=== PATIENT | female | born 1955 | race Caucasian/White ===

== ENCOUNTER → 2016-11-10 09:21 | Outpatient (CLI) | payer MEDICARE | END | disposition home or self-care (01) | LOC: D.NM 09:15 | DX: E21.3 Hyperparathyroidism, unspecified (principal) ==

== ENCOUNTER → 2016-12-03 10:07 | Outpatient (CLI) | payer MEDICARE ==
[~2016-12-03 10:07] MED LIST: LEXAPRO10 MG PO; LIPITOR80 MG PO; NEPHRO-VITE RX1 TAB PO; NORVASC2.5 MG PO; RENVELA800 MG PO
[2017-01-27 07:47] VITALS: BMI 36.8
== END | disposition home or self-care (01) ==
LOC: D.US 10:00
DX: N18.6 End stage renal disease (principal)

== ENCOUNTER 2017-01-27 06:13 | Outpatient (CLI) | payer MEDICARE ==
[~2017-01-27] VITALS: Ht 157.5 cm; Wt 91.4 kg
--- NOTE | ~2017-01-27 | HEMODYNAMI ---
PATIENT:NAILA CORREIA MEDICAL RECORD: [id number] : 55 LOCATION:[facility] ADMISSION DATE: 01/27/17 Generatedon:01/27/201714:49 Patient name: NAILA CORREIA Patient #: [id number] SSN: : Date of study: 01/27/2017 Page: Of Hemodynamic Procedure Report Patient Data Patient Demographics Procedure consent was obtained First Name: NAILA Gender: Female Last Name: BREN : 1955 [facility] Initial: C Age: 61 year(s) Patient #: [id number] Race: Unknown Additional ID: [id number] Contact details Address: [address] [place] [address] [employer] [facility] [employer] State: [place] City: [place] Zip code: [address] Past Medical History Allergies: No known allergies Admission Admission Data Admission Date: 01/27/2017 Admission Time: 6:13 Procedure Procedure Types Cath Procedure Peripheral Cath Diagnostic Procedure Miscellaneous Procedure Description Procedure Date Procedure Date: 01/27/2017 Procedure Start Time: 14:18 Procedure Staff Name Function Guillermo Dixon RT Scrub Partha Catherine MD Performing Physician Debbi Feliciano RN Nurse Sherry Villarreal RT Monitor Sherry Villarreal RT Mail Agent Procedure Data Cath Procedure Fluoroscopy Diagnostic fluoroscopy Total fluoroscopy Time: 0.6 time: 0.6 min min Diagnostic fluoroscopy Total fluoroscopy dose: 27 dose: 27 mGy mGy Contrast Material Contrast Material Type Amount (ml) Isovue 300 35 Procedure Medications Medication Administration Route Dosage Oxygen NC 3 l/min Lidocaine 1% added to field 20 Heparin Flush Bag added to field 2 bags (1000units/500ml NS) Versed 1 mg Fentanyl I.V. 50 mcg Ancef (1Gm/50ml NS) I.V.P.B 1 g Versed I.V. 1 mg Fentanyl I.V. 50 mcg Hemodynamics Rest Heart Rate: 95 (bpm) Snapshots Pre Cath Intra NCS Post Cath Vital Signs Time Heart Resp SPO2 etCO2 NIBP (mmHg) Rhythm Pain Sedation Rate (ipm) (%) (mmHg) Status Level (bpm) 13:58:37 96 22 99 33 192/87(129) NSR 0 (11) 10(A) , No pain 14:03:24 92 18 100 34.5 164/83(130) NSR 0 (11) 10(A) , No pain 14:08:03 97 17 99 33 174/92(142) NSR 0 (11) 10(A) , No pain 14:12:45 95 14 99 33 181/92(134) NSR 0 (11) 10(A) , No pain 14:17:26 96 19 100 37.5 183/97(137) NSR 0 (11) 10(A) , No pain 14:22:05 95 16 99 35.3 171/92(131) NSR 0 (11) 10(A) , No pain 14:26:39 99 17 98 35.3 164/91(121) NSR 0 (11) 10(A) , No pain 14:31:17 97 8 98 27 164/85(125) NSR 0 (11) 10(A) , No pain 14:35:54 94 17 98 36 172/91(133) NSR 0 (11) 10(A) , No pain 14:40:35 95 21 99 34.5 180/91(128) NSR 0 (11) 10(A) , No pain 14:45:17 94 15 100 34.5 159/96(145) NSR 0 (11) 10(A) , No pain 14:48:52 94 18 100 28.5 180/97(127) NSR 0 (11) 10(A) , No pain Medications Time Medication Route Dose Verified Delivered Reason Notes Eff ectiveness by by 14:20:04 Oxygen NC 3 Debbi Debbi used for l/min Braden Braden cellar pumper RN 14:20:19 Lidocaine 1% added 20ml Debbi Chavis for local to vial Braden Catherine anesthetic field MÓNICA CHAVEZ 14:20:38 Heparin Flush added 2 Debbi Partha used for Bag to bags Braden Catherine procedure (1000units/500ml field MÓNICA CHAVEZ NS) 14:23:21 Versed 1 mg Partha Werner for Catherine Braden RN sedation 14:23:33 Fentanyl I.V. 50 Partha Werner for mcg Dorene Feliciano RN sedation 14:23:55 Ancef (1Gm/50ml I.V.P.B 1 g Partha Werner Per NS) Dorene Feliciano RN protocol 14:28:36 Versed I.V. 1 mg Partha Werner for Dorene Feliciano RN sedation 14:28:43 Fentanyl I.V. 50 Partha Debbi for mcg Dorene Feliciano RN sedation Procedure Log Time Note 11:34:22 Full Disclosure recording stopped 13:47:29 Time tracking: Regular hours 13:56:46 Plan of Care:Hemodynamics will remain stable., Cardiac rhythm will remain stable., Comfort level will be maintained., Respiratory function will remain adequate., Patient/ family verbilizes understanding of procedure., Procedure tolerated without complication., Recovers from procedure without complications.. 13:56:53 Patient received from Outpatients to IR Alert and oriented. Tansferred to table in Supine position. 13:56:56 Correct patient and procedure confirmed by team. 13:56:59 Signed procedure consent form obtained from patient. 13:57:00 ECG and BP/O2 sat monitors applied to patient. 13:57:01 Vital chart was started 13:57:02 Baseline sample Acquired. 13:57:03 Full Disclosure recording started 13:57:04 - 13:57:09 H&P Date Dictated: 01/27/2017 Within 30 days and on chart.. 13:57:12 Pre-procedure instructions explained to patient. 13:57:13 Pre-op teaching completed and patient verbalized understanding. 13:57:15 Family in waiting room. 13:57:18 Patient NPO since Midnight. 13:57:36 Patient allergic to No known allergies 13:57:42 ----Pre-sedation anethsthesia assessment.---- 13:57:49 Previous problem with sedation/anesthesia? No ? 13:57:52 Snore? No 13:57:55 Sleep apnea? No 13:57:57 Deviated septum? No 13:57:59 Opens mouth fully? Yes 13:58:01 Sticks out tongue? Yes 13:58:04 Airway obstruction? No ? 13:58:08 Dentures? No ? 13:58:10 - 13:58:18 IV patent on arrival in right wrist with 0.9% NaCl at [facility]. 13:58:27 Use device set IR Diagnostic 13:58:29 Sterile Angiographic Pack opened to sterile field. 13:58:30 Bag Decanter (2002S) opened to sterile field. 14:15:32 Is patient on blood thinner?No 14:15:34 Patient diabetic? No. 14:17:52 Left Arm area was prepped with chlora-prep and draped in sterile fashio n 14:17:56 Physician arrived 14:18:07 --------ALL STOP TIME OUT------ 14:18:08 Final Timeout: patient, procedure, and site verified with staff and physician. All members of the team are in agreement. 14:18:18 Sedation plan: IV Moderate Sedation Medication:Versed, Fentanyl 14:18:39 Procedure started. 14:18:49 Local anesthetic to left arm with Lidocaine 1% by Partha Catherine MD.INITIAL ACCESS ONLY 14:19:46 Venous access obtained using ultrasound guidance. 14:20:04 Oxygen 3 l/min NC was administered by Debbi Feliciano RN; used for procedure; 14:20:19 Lidocaine 1% 20ml vial added to field was administered by Partha Catherine MD; for local anesthetic; 14:20:38 Heparin Flush Bag (1000units/500ml NS) 2 bags added to field was administered by Partha Catherine MD; used for procedure; 14:20:46 Cook DOC .035 guide wire opened to sterile field. 14:20:59 DILATOR, VESSEL 4/20 opened to sterile field. 14:21:01 PERCUTANEOUS ENTRY 19GA needle opened to sterile field. 14:23:21 Versed 1 mg was administered by Debbi Braden RN; for sedation; 14:23:33 Fentanyl 50 mcg I.V. was administered by Debbi Feliciano RN; for sedation ; 14:23:55 Ancef (1Gm/50ml NS) 1 g I.V.P.B was administered by Debbi Feliciano RN; Per protocol; 14:28:36 Versed 1 mg I.V. was administered by Debbi Feliciano RN; for sedation; 14:28:43 Fentanyl 50 mcg I.V. was administered by Debbi Feliciano RN; for sedation ; 14:41:37 Procedure ended.(Physican Out) 14:41:51 Fluoroscopy time 00.60 minutes. 14:41:56 Fluoroscopy dose: 27 mGy 14:41:56 Flurop Dose total: 27 14:42:02 Contrast amount:Isovue 300 35ml. 14:45:39 Procedure and supply charges have been captured, reviewed, submitted an d are correct. 14:49:26 Vital chart was stopped Device Usage Item Name Manufacture Quantity Catalog Hospital Part Current Minimal Lot# / Number Charge Number Stock Stock Serial# Code Sterile Cardinal 1 [id number] Angiographic Health Pack Bag Decanter Microtek 1 [id number] () [employer] Cook DOC [employer] 1 [id number] .035 guide wire DILATOR, [employer] 1 [id number] 04563 [id number] 5 [id number] VESSEL 06/18 PERCUTANEOUS [employer] 1 [id number] 5 [id number] ENTRY 19GA needle Signature Audit Prior [place] Time Signature Unsigned Intra-Procedure 01/27/2017 Sherry Villarreal 2:49:24 PM RT(R) Signatures Monitor : Sherry Villarreal RT Signature : Date : Time : [address] [address]
[2017-01-27] MEDS ORDERED: LIPITOR80 MG PO (07:26)
[2017-01-27] MEDS ORDERED: NEPHRO-VITE RX1 TAB PO (07:27)
[2017-01-27] MEDS ORDERED: LEXAPRO10 MG PO (07:27)
[2017-01-27] MEDS ORDERED: NORVASC2.5 MG PO (07:28)
[2017-01-27] MEDS ORDERED: RENVELA800 MG PO (07:28)
[2017-01-27 07:47] VITALS: Ht 157.5 cm; Wt 91.4 kg
[2017-01-27 07:57] LABS: BASOPHILS 0.2 % (0-2); EOSINOPHILS 5.2 % (0-7); HEMATOCRIT 31.8 % (36.0-48.0); HEMOGLOBIN 9.9 g/dL (12-16); LYMPHOCYTES 20.1 % (15-50); MCH 30.4 pg (26.0-34.0); MCHC 31.1 g/dL (31.0-37.0); MCV 97.5 fL (80.0-100.0); MEAN PLATELET VOLUME 10.4 fL (7.4-10.4); MONOCYTES 10.1 % (2-11); NEUTROPHILS 64.4 % (40-80); PLATELET COUNT 223 10x3/uL (130-400); RBC 3.26 10x6/uL (4.00-5.40); RDW 14.3 % (11.5-14.5); WBC 5.4 10x3/uL (4.8-10.8)
[2017-01-27 08:00] LABS: ANION GAP 16.7 mmol/L (8-16); CALCIUM 8.9 mg/dL (8.5-10.1); CARBON DIOXIDE 23.3 mmol/L (21.0-32.0); CREATININE - SERUM 9.3 mg/dL (0.6-1.3)
[2017-01-27 08:02] LABS: INR 1.07 (0.85-1.17); PROTIME 13.5 SECONDS (11.6-15.0)
[2017-01-27 08:03] LABS: APTT 37.7 SECONDS (22.8-39.4)
--- NOTE | 2017-01-27 18:41 | NUR ---
1500--ALL VITAL SIGNS CHARTED ON POST PROCEDURE VITAL SIGN SHEET ON CHART. DENICE SALES
--- NOTE | 2017-01-27 18:47 | NUR ---
1830--PT VOIDS ON BEDPAN. HGRAVES RN
== END 2017-01-27 20:45 | disposition home or self-care (01) ==
LOC: D.OPS 06:13 → D.SP 09:00 → D.OPS 20:45
PROVIDERS: Specialist
DX: T82.868A Thrombosis due to vascular prosthetic devices, implants and grafts, initial encounter (principal); Z01.812 Encounter for preprocedural laboratory examination

== ENCOUNTER → 2017-04-12 09:43 | Outpatient (CLI) | payer MEDICARE ==
[2017-01-27 07:47] VITALS: BMI 36.8
== END | disposition home or self-care (01) ==
LOC: D.US 09:43
DX: E21.5 Disorder of parathyroid gland, unspecified (principal)

== ENCOUNTER → 2017-08-04 09:08 | Outpatient (CLI) | payer MEDICARE ==
[2017-01-27 07:47] VITALS: BMI 36.8
== END | disposition home or self-care (01) ==
LOC: D.NM 09:08
DX: E21.3 Hyperparathyroidism, unspecified (principal)

== ENCOUNTER → 2017-10-18 12:57 | Outpatient (CLI) | payer MEDICARE ==
[2017-01-27 07:47] VITALS: BMI 36.8
[~2017-10-18 12:57] MED LIST changes: +BENADRYL25 MG PO; +HYDROCODON-ACE1 EAC7 PO; +HYDROXYZINE HCL50 MG PO; +MEDROL DOSE PACK4 MG PO; +PERCOCET 5-3251 TAB PO; +PREDNISONE20 MG PO; +TUMS X-STR300 MG PO
== END | disposition home or self-care (01) ==
LOC: D.LAB 08:00
DX: Z51.81 Encounter for therapeutic drug level monitoring (principal); Z79.2 Long term (current) use of antibiotics; K65.9 Peritonitis, unspecified

== ENCOUNTER 2017-11-10 23:01 | Emergency (ER) | payer MEDICARE ==
[~2017-11-10] VITALS: Ht 157.5 cm; Wt 89.1 kg
[~2017-11-10 23:01] MED LIST changes: -BENADRYL25 MG PO; -HYDROCODON-ACE1 EAC7 PO; -HYDROXYZINE HCL50 MG PO; -MEDROL DOSE PACK4 MG PO; -PERCOCET 5-3251 TAB PO; -PREDNISONE20 MG PO; -TUMS X-STR300 MG PO
[2017-11-10 23:11] VITALS: Ht 157.5 cm; Wt 89.1 kg
[2017-11-11] MEDS ORDERED: HYDROCODON-ACE1 EAC7 PO (00:13)
[2017-11-11 00:40] VITALS: BP 145/82
[2017-11-11] MEDS ORDERED: TUMS X-STR300 MG PO (13:23)
== END 2017-11-11 00:40 | disposition home or self-care (01) ==
LOC: D.ER 23:01
DX: R10.9 Unspecified abdominal pain (principal); Z86.73 Personal history of transient ischemic attack (TIA), and cerebral infarction without residual deficits; I12.9 Hypertensive chronic kidney disease with stage 1 through stage 4 chronic kidney disease, or unspecified chronic kidney disease; N18.9 Chronic kidney disease, unspecified; Z99.2 Dependence on renal dialysis

== ENCOUNTER 2017-11-11 12:35 | Inpatient (IN) | payer MEDICARE ==
[~2017-11-11] VITALS: Ht 157.5 cm; Wt 89.7 kg
--- NOTE | ~2017-11-11 | OP ---
PATIENT NAME: PAULINO CORREIA MEDICAL RECORD: [id number] :55 LOCATION:D.M2 D.2130 ADMISSION DATE:11/11/17 SURGEON: STEPHANE SUNG MD DATE OF OPERATION: 11/14/2017 PREOPERATIVE DIAGNOSES: 1. Peritonitis secondary to peritoneal dialysis catheter. 2. End-stage renal disease, in need of dialysis. 3. Desires hemodialysis and desires to discontinue peritoneal dialysis. POSTOPERATIVE DIAGNOSES: 1. Peritonitis secondary to peritoneal dialysis catheter. 2. End-stage renal disease, in need of dialysis. 3. Desires hemodialysis and desires to discontinue peritoneal dialysis. PROCEDURES: 1. HemoSplit catheter placement of the right internal jugular site. This is a tunneled cuffed dual-lumen hemodialysis catheter, under fluoroscopic guidance. 2. Immediate surgeon interpretation of the fluoroscopic images. 3. Removal of tunneled cuffed peritoneal dialysis catheter. SURGEON: Stephane Sung MD CHILD CARE AIDE: None. BLOOD LOSS: Minimal. ANESTHESIA: General. COMPLICATIONS: None. The risks, possible complications, and alternatives to procedure were explained to the patient. She elects to proceed. The discussion specifically included, but was not limited to, bleeding requiring an emergency reoperation, infection, great vessel injury, and pneumothorax. No radiologist was present for this procedure. Static fluoroscopic images were obtained and are kept in the PACS system. The surgeon interpretation of the radiographic images is dictated within the body of this operative note. OPERATIVE COURSE: The patient was conveyed to the operating room electively on 11/14/2017. General anesthesia was induced by the anesthesia staff. The neck, chest, and abdomen were sterilely prepped and draped. Under ultrasonographic guidance, I percutaneously accessed the right internal jugular vein in an antegrade fashion. A guidewire was passed easily. This was visualized under fluoroscopy. A small skin candice was accomplished around the wire. A counterincision was accomplished in the right anterior superior infraclavicular chest. I tunneled a 19 cm HemoSplit catheter from the chest incision to the neck incision. I dilated the wire to a larger size. The dilator sheath was advanced over the wire. I removed the dilator and the wire. The lumens of the HemoSplit catheter were then placed down through the sheath. Sheath was then peeled away. I then pulled back on the HemoSplit catheter in order to seat the cuff into the subcutaneous tissues. Image over the mediastinum revealed that the longest tip of the HemoSplit catheter was likely OPERATIVE REPORT [id number] PAULINO CORREIA in the region of the right innominate vein or the superior vena cava. There was no radiographic evidence of complication. No evidence of kinking or twisting of the HemoSplit catheter. No pneumothorax. The neck incision was closed with a single intracuticular 3-0 Vicryl suture. The hub of the HemoSplit catheter was sutured to the underlying skin with 2-0 nylons. Both lumens flushed easily and aspirated dark, nonpulsatile blood. I then topped off both lumens of the HemoSplit catheter with the appropriate amount of concentrated heparin. Attention was then turned to removal of the peritoneal dialysis catheter. A circular incision was accomplished around the peritoneal dialysis catheter exit site. I then bluntly dissected down to the secondary cuff, which was at the level of the abdominal wall fascia. I incised the abdominal wall fascia around the cuff. I was then able to remove the peritoneal dialysis catheter and it appeared that both cuffs were removed in their entireties. The peritoneal dialysis catheter was likely placed in an angle as I could not identify any drainage of peritoneal fluid into the wound. Therefore, I did not think that a suture was necessary for the peritoneal dialysis catheter entry site. The subdermis was approximated with interrupted 3-0 Vicryls. The skin was approximated with interrupted horizontal mattress 3-0 Vicryl Rapide sutures. Sterile dressings were applied. The patient was then extubated and conveyed to the post-anesthesia care unit where she was in stable condition. TRANSINT:[id number] Voice Confirmation ID: [id number] DOCUMENT ID: [id number] STEPHANE SUNG MD CC: DARCY LAWSON MD [id number] DICTATION DATE: 11/14/17 2248 RADIO STATION OPERATOR: 11/15/17 0013 ADM IN [facility] [address] [id number]
[~2017-11-11 12:35] MED LIST changes: +HYDROCODON-ACE1 EAC7 PO
[2017-11-11] MEDS ORDERED: TUMS X-STR300 MG PO (13:23)
[2017-11-11 13:49] VITALS: BP 108/53
[2017-11-11 14:54] LABS: BASOPHILS 0.2 % (0-2); EOSINOPHILS 11.9 % (0-7); HEMOGLOBIN 9.4 g/dL (12-16); IMMATURE GRANULOCYTES 0.2 % (0-5); LYMPHOCYTES 11.7 % (15-50); MCH 30.2 pg (26.0-34.0); MCHC 33.6 g/dL (31.0-37.0); MEAN PLATELET VOLUME 10.2 fL (7.4-10.4); MONOCYTES 11.9 % (2-11); NEUTROPHILS 64.1 % (40-80); RBC 3.11 10x6/uL (4.00-5.40); RDW 14.3 % (11.5-14.5)
[2017-11-11 15:02] LABS: PLATELET COUNT 149 10x3/uL (130-400)
[2017-11-11 15:09] LABS: CARBON DIOXIDE 22.8 mmol/L (21.0-32.0); CREATININE - SERUM 13.1 mg/dL (0.6-1.3)
[2017-11-11 15:13] LABS: ANION GAP 18.1 mmol/L (8-16); CALCIUM 5.9 mg/dL (8.5-10.1); POTASSIUM - SERUM 2.9 mmol/L (3.5-5.1)
[2017-11-11 17:00] VITALS: BP 128/64
[2017-11-11 20:00] VITALS: BP 101/52
[2017-11-12] VITALS: BP 132/64
[2017-11-12 02:55] LABS: EOS BF 5 %; MACROPHAGES BF 8 %; MESOTHELIALS BF 2 %
[2017-11-12 02:56] LABS: NEUT - BF 48 %
[2017-11-12 04:00] VITALS: BP 128/68
[2017-11-12 06:17] LABS: BASOPHILS 0.3 % (0-2); EOSINOPHILS 14.1 % (0-7); HEMATOCRIT 27.9 % (36.0-48.0); HEMOGLOBIN 9.4 g/dL (12-16); IMMATURE GRANULOCYTES 0.6 % (0-5); LYMPHOCYTES 12.4 % (15-50); MCH 30.6 pg (26.0-34.0); MCHC 33.7 g/dL (31.0-37.0); MCV 90.9 fL (80.0-100.0); MEAN PLATELET VOLUME 10.4 fL (7.4-10.4); NEUTROPHILS 64.6 % (40-80); PLATELET COUNT 152 10x3/uL (130-400); RBC 3.07 10x6/uL (4.00-5.40); RDW 14.3 % (11.5-14.5); WBC 3.6 10x3/uL (4.8-10.8)
[2017-11-12 06:30] LABS: ANION GAP 18.7 mmol/L (8-16); CARBON DIOXIDE 21.3 mmol/L (21.0-32.0); CREATININE - SERUM 12.1 mg/dL (0.6-1.3)
[2017-11-12 07:16] LABS: CALCIUM 6.2 mg/dL (8.5-10.1)
[2017-11-12 07:40] VITALS: BP 93/46
[2017-11-12 12:36] VITALS: BP 121/62
[2017-11-12 13:16] VITALS: Ht 157.5 cm; Wt 89.7 kg
[2017-11-12 16:02] VITALS: BP 100/50
[2017-11-12 20:00] VITALS: BP 88/48
[2017-11-13 04:00] VITALS: BP 108/53
[2017-11-13 06:54] LABS: BASOPHILS 0.3 % (0-2); EOSINOPHILS 12.1 % (0-7); HEMATOCRIT 28.8 % (36.0-48.0); HEMOGLOBIN 9.4 g/dL (12-16); IMMATURE GRANULOCYTES 0.5 % (0-5); LYMPHOCYTES 10.1 % (15-50); MCH 30.1 pg (26.0-34.0); MCHC 32.6 g/dL (31.0-37.0); MCV 92.3 fL (80.0-100.0); MEAN PLATELET VOLUME 10.7 fL (7.4-10.4); MONOCYTES 7.2 % (2-11); NEUTROPHILS 69.8 % (40-80); PLATELET COUNT 157 10x3/uL (130-400); RBC 3.12 10x6/uL (4.00-5.40); RDW 14.4 % (11.5-14.5); WBC 3.9 10x3/uL (4.8-10.8)
[2017-11-13 07:08] LABS: ALBUMIN 2.3 g/dL (3.4-5.0); ANION GAP 20.9 mmol/L (8-16); BILIRUBIN - DIRECT 0.07 mg/dL (0.00-0.30); BILIRUBIN - INDIRECT 0.32 mg/dL (0.00-1.00); BILIRUBIN - TOTAL 0.39 mg/dL (0.2-1.3); CALCIUM 7.2 mg/dL (8.5-10.1); CARBON DIOXIDE 20.3 mmol/L (21.0-32.0); CREATININE - SERUM 10.4 mg/dL (0.6-1.3); POTASSIUM - SERUM 3.2 mmol/L (3.5-5.1); PROTEIN - SERUM 5.9 g/dL (6.4-8.2); VANCOMYCIN - RANDOM 38.4 ug/mL (10.0-20.0)
[2017-11-13 09:28] VITALS: BP 94/54
[2017-11-13 12:58] VITALS: BP 103/53
[2017-11-13 20:00] VITALS: BP 112/44
[2017-11-14] VITALS (7 sets, daily range): BP systolic 106–156; BP diastolic 43–76
[2017-11-14 06:46] LABS: BASOPHILS 0.2 % (0-2); EOSINOPHILS 13.1 % (0-7); HEMATOCRIT 27.2 % (36.0-48.0); HEMOGLOBIN 8.6 g/dL (12-16); IMMATURE GRANULOCYTES 0.2 % (0-5); LYMPHOCYTES 13.9 % (15-50); MCHC 31.6 g/dL (31.0-37.0); MEAN PLATELET VOLUME 10.3 fL (7.4-10.4); MONOCYTES 8.2 % (2-11); NEUTROPHILS 64.4 % (40-80); PLATELET COUNT 134 10x3/uL (130-400); RBC 2.87 10x6/uL (4.00-5.40); RDW 14.6 % (11.5-14.5)
[2017-11-14 06:49] LABS: MCV 94.8 fL (80.0-100.0)
[2017-11-14 07:13] LABS: ANION GAP 18.1 mmol/L (8-16); CARBON DIOXIDE 20.1 mmol/L (21.0-32.0); CREATININE - SERUM 10.9 mg/dL (0.6-1.3); PHOSPHOROUS 4.1 mg/dL (2.5-4.9); VANCOMYCIN - RANDOM 30.7 ug/mL (10.0-20.0)
[2017-11-14 07:18] LABS: INR 1.11 (0.85-1.17); POTASSIUM - SERUM 4.2 mmol/L (3.5-5.1); PROTIME 13.9 SECONDS (11.6-15.0)
[2017-11-15] VITALS (7 sets, daily range): BP systolic 122–175; BP diastolic 53–73
[2017-11-15 07:43] LABS: BASOPHILS 0.1 % (0-2); EOSINOPHILS 0 % (0-7); HEMATOCRIT 29.5 % (36.0-48.0); HEMOGLOBIN 9.3 g/dL (12-16); IMMATURE GRANULOCYTES 0.6 % (0-5); LYMPHOCYTES 7.4 % (15-50); MCH 29.8 pg (26.0-34.0); MCHC 31.5 g/dL (31.0-37.0); MCV 94.6 fL (80.0-100.0); MEAN PLATELET VOLUME 10.5 fL (7.4-10.4); MONOCYTES 1.9 % (2-11); PLATELET COUNT 146 10x3/uL (130-400); RBC 3.12 10x6/uL (4.00-5.40); RDW 14.4 % (11.5-14.5)
[2017-11-15 07:46] LABS: WBC 7.3 10x3/uL (4.8-10.8)
[2017-11-15 08:01] LABS: ANION GAP 19.6 mmol/L (8-16); CALCIUM 7.3 mg/dL (8.5-10.1); CARBON DIOXIDE 19.8 mmol/L (21.0-32.0); CREATININE - SERUM 11.1 mg/dL (0.6-1.3); POTASSIUM - SERUM 4.4 mmol/L (3.5-5.1); VANCOMYCIN - RANDOM 25.8 ug/mL (10.0-20.0)
[2017-11-15 08:02] LABS: PHOSPHOROUS 5.3 mg/dL (2.5-4.9)
[2017-11-16] VITALS: BP 102/51
[2017-11-16 04:00] VITALS: BP 99/42
[2017-11-16 06:55] LABS: BASOPHILS 0.3 % (0-2); EOSINOPHILS 7.2 % (0-7); HEMATOCRIT 28.2 % (36.0-48.0); IMMATURE GRANULOCYTES 0.7 % (0-5); LYMPHOCYTES 7.7 % (15-50); MCH 30.3 pg (26.0-34.0); MCHC 31.9 g/dL (31.0-37.0); MCV 94.9 fL (80.0-100.0); MEAN PLATELET VOLUME 10.3 fL (7.4-10.4); MONOCYTES 4.5 % (2-11); NEUTROPHILS 79.6 % (40-80); PLATELET COUNT 142 10x3/uL (130-400); RBC 2.97 10x6/uL (4.00-5.40); RDW 14.6 % (11.5-14.5)
[2017-11-16 07:08] LABS: CALCIUM 7.7 mg/dL (8.5-10.1); VANCOMYCIN - RANDOM 22.7 ug/mL (10.0-20.0)
[2017-11-16 07:09] LABS: ANION GAP 14.5 mmol/L (8-16); CARBON DIOXIDE 26.9 mmol/L (21.0-32.0); CREATININE - SERUM 7.1 mg/dL (0.6-1.3); PHOSPHOROUS 3.7 mg/dL (2.5-4.9); POTASSIUM - SERUM 3.4 mmol/L (3.5-5.1)
[2017-11-16] MEDS ORDERED: PERCOCET 5-3251 TAB PO (07:41)
[2017-11-16] MEDS ORDERED: MEDROL DOSE PACK4 MG PO (07:42)
[2017-11-16 08:17] VITALS: BP 115/58
[2017-11-16 11:13] VITALS: BP 96/35
[2017-11-16 16:22] VITALS: BP 148/58
[2017-11-16 18:11] LABS: HEP B CORE AB TOTAL Negative (Negative); HEPATITIS C ANTIBODY <0.1 (0.0-0.9)
[2017-11-16 20:00] VITALS: BP 122/53
[2017-11-17 04:00] VITALS: BP 106/55
[2017-11-17 05:41] LABS: BASOPHILS 0 % (0-2); EOSINOPHILS 1.9 % (0-7); HEMATOCRIT 27.7 % (36.0-48.0); HEMOGLOBIN 8.7 g/dL (12-16); IMMATURE GRANULOCYTES 0.8 % (0-5); LYMPHOCYTES 7.4 % (15-50); MCH 30.3 pg (26.0-34.0); MCHC 31.4 g/dL (31.0-37.0); MCV 96.5 fL (80.0-100.0); MEAN PLATELET VOLUME 10.4 fL (7.4-10.4); MONOCYTES 4.8 % (2-11); NEUTROPHILS 85.1 % (40-80); PLATELET COUNT 146 10x3/uL (130-400); RBC 2.87 10x6/uL (4.00-5.40); RDW 14.7 % (11.5-14.5); WBC 6.5 10x3/uL (4.8-10.8)
[2017-11-17 06:04] LABS: ANION GAP 14.5 mmol/L (8-16); CALCIUM 7.5 mg/dL (8.5-10.1); CARBON DIOXIDE 25.8 mmol/L (21.0-32.0); CREATININE - SERUM 8.4 mg/dL (0.6-1.3)
[2017-11-17 06:05] LABS: POTASSIUM - SERUM 4.3 mmol/L (3.5-5.1)
== END 2017-11-17 11:24 | disposition home or self-care (01) | DRG 981 ==
LOC: D.M2 12:35
PROVIDERS: Internal Medicine Nephrology; Surgery
PROC: 02HV33Z Insertion of Infusion Device into Superior Vena Cava, Percutaneous Approach (ICD-10-PCS; 2017-11-14)
PROC: B5181ZA Fluoroscopy of Superior Vena Cava using Low Osmolar Contrast, Guidance (ICD-10-PCS; 2017-11-14)
PROC: 0JH63XZ Insertion of Tunneled Vascular Access Device into Chest Subcutaneous Tissue and Fascia, Percutaneous Approach (ICD-10-PCS; principal; 2017-11-14 14:00)
PROC: 0WPG03Z Removal of Infusion Device from Peritoneal Cavity, Open Approach (ICD-10-PCS; 2017-11-14 14:00)
DX: T85.71XA Infection and inflammatory reaction due to peritoneal dialysis catheter, initial encounter (principal); K65.9 Peritonitis, unspecified; N18.6 End stage renal disease; E87.6 Hypokalemia; E83.51 Hypocalcemia; I95.9 Hypotension, unspecified; Z86.73 Personal history of transient ischemic attack (TIA), and cerebral infarction without residual deficits; Z87.891 Personal history of nicotine dependence; Y83.8 Other surgical procedures as the cause of abnormal reaction of the patient, or of later complication, without mention of misadventure at the time of the procedure

== ENCOUNTER 2017-11-22 13:50 | Emergency (ER) | payer MEDICARE ==
[~2017-11-22] VITALS: Ht 157.5 cm; Wt 90.9 kg
[~2017-11-22 13:50] MED LIST changes: +MEDROL DOSE PACK4 MG PO; +PERCOCET 5-3251 TAB PO; +TUMS X-STR300 MG PO
[2017-11-22 14:05] VITALS: Ht 157.5 cm; Wt 90.9 kg
[2017-11-22] MEDS ORDERED: BENADRYL25 MG PO (14:08)
[2017-11-22] MEDS ORDERED: PREDNISONE20 MG PO (16:36)
[2017-11-22] MEDS ORDERED: HYDROXYZINE HCL50 MG PO (16:36)
[2017-11-22 17:00] VITALS: BP 136/74
== END 2017-11-22 17:01 | disposition home or self-care (01) ==
LOC: D.ER 13:50
DX: T50.905A Adverse effect of unspecified drugs, medicaments and biological substances, initial encounter (principal); Y92.89 Other specified places as the place of occurrence of the external cause; Z86.73 Personal history of transient ischemic attack (TIA), and cerebral infarction without residual deficits; N18.9 Chronic kidney disease, unspecified; Z99.2 Dependence on renal dialysis

== ENCOUNTER → 2018-03-28 16:07 | Outpatient (CLI) | payer MEDICARE ==
[2017-11-22 14:05] VITALS: BMI 36.6
[~2018-03-28 16:07] MED LIST changes: +BENADRYL25 MG PO; +HYDROXYZINE HCL50 MG PO; +PREDNISONE20 MG PO
== END | disposition home or self-care (01) ==
LOC: D.MRI 16:07
DX: M25.561 Pain in right knee (principal)

== ENCOUNTER → 2018-04-04 18:05 | Outpatient (CLI) | payer MEDICARE ==
[2017-11-22 14:05] VITALS: BMI 36.6
[~2018-04-04 18:05] MED LIST changes: +COLCRYS0.6 MG PO; +HYDROCODON-ACE1 EA10 PO; +LOVENOX INJ100 MG/ML SC; +NORCO-10 PO; +PROCRIT SC; +PROTONIX40 MG PO; +RENAGEL800 MG PO; +ULORIC40 MG PO; +ZOFRAN INJ IV; +ZOFRAN4 MG PO; +[UNRECOGNIZED DRUG - OTHER] SC
== END | disposition home or self-care (01) ==
LOC: D.LABREF 18:05
DX: M17.11 Unilateral primary osteoarthritis, right knee (principal); Z11.8 Encounter for screening for other infectious and parasitic diseases

== ENCOUNTER 2018-04-12 10:48 | Inpatient (IN) | payer MEDICARE ==
[~2018-04-12] VITALS: Ht 157.5 cm; Wt 85.6 kg
--- NOTE | ~2018-04-12 | HEMODYNAMI ---
PATIENT:PAULINO CORREIA MEDICAL RECORD: [id number] : 55 LOCATION:[facility] Summer[facility]4 ADMISSION DATE: 04/12/18 Generatedon:04/22/201816:41 Patient name: PAULINO CORREIA Patient #: [id number] SSN: DO B: 1955 Date of study: 04/22/2018 Page: Of Hemodynamic Procedure Report Patient Data Patient Demographics Procedure consent was obtained First Name: PAULINO Gender: Female Last Name: BREN : 1955 Middle Initial: NAILA Age: 63 year(s) Patient #: [id number] Race: Unknown Additional ID: [id number] Contact details [address]: [address] [place] [address] [place] State: [place] City: [place] Zip code: [address] Past Medical History Allergies: No known allergies Admission Admission Data Admission Date: 04/12/2018 Admission Time: 13:49 Room #: D.2204 Height (in.): 62 BSA: 1.84 (m2) Height (cm.): 157.48 BMI: 33.65 (kg/m2) Weight (lbs.): 184 Weight (kg.): 83.46 Procedure Procedure Types Cath Procedure Peripheral Cath Diagnostic Procedure Conservation Biology Professor Peripheral Procedures Venography IVC/SVC Inferior Venacava Filter Procedure Description Procedure Date Procedure Date: 04/22/2018 Procedure Start Time: 16:24 Procedure Staff Name Function Al Santana MD Performing Physician Sherry Villarreal RT Director Of Cardiology Debbi Feliciano RN Nurse Guillermo Dixon RT Scrub Procedure Data Cath Procedure Fluoroscopy Diagnostic fluoroscopy Total fluoroscopy Time: 1.2 time: 1.2 min min Diagnostic fluoroscopy Total fluoroscopy dose: 69 dose: 69 mGy mGy Contrast Material Contrast Material Type Amount (ml) Isovue 300 20 Procedure Medications Medication Administration Route Dosage Heparin Flush Bag added to field 2 bags (1000units/500ml NS) Lidocaine 1% added to field Hemodynamics Rest BSA: 1.84 (m2) O2 Consumption: Estimated: 171.03 (ml/min) O2 Consumption indexed : Estimated:92.95 (ml/min/m) Heart Rate: 67 (bpm) Snapshots Pre Cath Intra NCS Post Cath Vital Signs Time Heart Resp SPO2 etCO2 NIBP (mmHg) Rhythm Pain Sedation Rate (ipm) (%) (mmHg) Status Level (bpm) 16:19:26 117 12 90 30.8 129/46(104) NSR 0 (11) 10(A) , No pain 16:23:51 103 16 100 0 104/42(65) NSR 0 (11) 10(A) , No pain 16:28:50 102 20 100 3 Measuring NSR 0 (11) 10(A) , No pain 16:30:07 101 16 100 4.5 Disturbed NSR 0 (11) 10(A) , No pain 16:34:34 95 19 100 0.7 90/37(65) NSR 0 (11) 10(A) , No pain 16:39:33 110 15 9 Measuring NSR 0 (11) 10(A) , No pain 16:39:41 109 16 10.5 141/56(86) NSR 0 (11) 10(A) , No pain Medications Time Medication Route Dose Verified Delivered Reason Notes Effe ctiveness by by 16:20:27 Heparin Flush added 2 Al Melendez used for Bag to bags Esther Santana procedure (1000units/500ml field MD HCAVEZ NS) 16:22:02 Lidocaine 1% added Al Melendez for local to Esther Santana anesthetic field MD CHAVEZ Procedure Log Time Note 16:00:17 Patient Height : 62 inches 16:00:23 Patient Weight : 184 lbs 16:00:56 Use device set IR Diagnostic 16:01:00 Tegaderm 4 x 4 (1626W) opened to sterile field. 16:01:00 Sterile Angiographic Pack opened to sterile field. 16:01:01 Bag Decanter () opened to sterile field. 16:01:02 ACIST Manifold (95126) opened to sterile field. 16:01:04 ACIST Hand Control (43090) opened to sterile field. 16:01:05 ACIST Syringe (18615) opened to sterile field. 16:01:10 - 16:02:52 TUBING Contrast Injection High Pressure ([id number]) opened to sterile field. 16:02:53 Micropuncture VSI 4FR kit opened to sterile field. 16:02:53 BENTSON 145cm wire (R11229) opened to sterile field. 16:17:09 Time tracking: Stay late (Procedures after 5:00pm) 16:17:27 Plan of Care:Hemodynamics will remain stable., Cardiac rhythm will remain stable., Comfort level will be maintained., Respiratory function will remain adequate., Patient/ family verbilizes understanding of procedure., Procedure tolerated without complication., Recovers from procedure without complications.. 16:17:36 Patient received from Med/Surg to IR Alert and oriented. Tansferred to table in Supine position. 16:17:42 Signed procedure consent form obtained from guardian. 16:17:44 ECG and BP/O2 sat monitors applied to patient. 16:17:55 Vital chart was started 16:17:56 Baseline sample Acquired. 16:17:58 Full Disclosure recording started 16:17:59 - 16:18:03 H&P Date Dictated: 04/22/2018 Within 30 days and on chart.. 16:18:05 Pre-procedure instructions explained to patient. 16:18:06 Pre-op teaching completed and patient verbalized understanding. 16:18:09 Family unavailable. 16:18:11 Patient NPO since Midnight. 16:18:23 Is the patient allergic to Iodine/contrast media? No. 16:18:26 Is patient on blood thinner?Yes 16:18:30 - 16:18:31 ----Pre-sedation anethsthesia assessment.----see anesthesia notes for monitoring of patient during procedure 16:19:08 - 16:19:20 IV patent on arrival in Rt subclavian with D5/.45%NaCl at KVO. 16:20:27 Heparin Flush Bag (1000units/500ml NS) 2 bags added to field was administered by Al Santana MD; used for procedure; 16:22:02 Lidocaine 1% added to field was administered by Al Santana MD; for local anesthetic; 16:23:53 Physician arrived 16:23:54 --------ALL STOP TIME OUT------ 16:23:54 Final Timeout: patient, procedure, and site verified with staff and physician. All members of the team are in agreement. 16:24:03 Procedure started. 16:24:09 Local anesthetic to right femoral vein with Lidocaine 1% by Al Santana MD.INITIAL ACCESS ONLY 16:28:08 FILTER Owen Vena Cava ([id number]) opened to sterile field. 16:28:50 Venous access obtained using ultrasound guidance. 16:30:47 Venogram performed 16:36:14 Owen Femoral IVC filter was placed below renal veins. 16:36:25 Procedure ended.(Physican Out) 16:36:55 Fluoroscopy time 01.20 minutes. 16:36:59 Fluoroscopy dose: 69 mGy 16:36:59 Flurop Dose total: 69 16:37:04 Contrast amount:Isovue 300 20ml. 16:37:08 Procedure and supply charges have been captured, reviewed, submitted an d are correct. 16:41:51 Vital chart was stopped Device Usage Item Name Manufacture Quantity Catalog Hospital Part Current [facility] l Lot# / Number Charge Number Stock Stock Serial# Code Tegaderm 4 x 3M 1 1626W [id number] [id number] 5 4 (1626W) Sterile Cardinal 1 [id number] 360933 426345 5 Angiographic Health Pack Bag Decanter Microtek 1 820109 75746 232069 5 (2001S) Medical Inc. ACIST Acist 1 03772 975052 814722 271135 5 Manifold Medical (14887) Systems Inc ACIST Hand Acist 1 71970 567171 132430 409850 5 Control Medical (43537) Systems Inc ACIST Syringe Acist 1 67288 849366 124558 021701 20 (28135) Medical Systems Inc TUBING Merit 1 [id number] 287268 071073 855131 5 [id number] Contrast Medical Injection High Pressure ([id number]) Micropuncture VSI VASCULAR 1 7266V 174364 466358 5 VSI 4FR kit SOLUTIONS BENTSON 145cm [place] Medical 1 [id number] 397528 287725 5 [id number] wire ([id number]) FILTER Paulina Bard 1 [id number] 842459 092165 018860 5 [id number] Vena Cava (TR851V) Signature Audit [place] Stage Time Signature Unsigned Intra-Procedure 04/22/2018 Sherry Villarreal 4:41:48 PM RT(R) [facility] [address] [place] [address]
[~2018-04-12 10:48] MED LIST changes: -COLCRYS0.6 MG PO; -HYDROCODON-ACE1 EA10 PO; -LOVENOX INJ100 MG/ML SC; -NORCO-10 PO; -PROCRIT SC; -PROTONIX40 MG PO; -RENAGEL800 MG PO; -ULORIC40 MG PO; -ZOFRAN INJ IV; -ZOFRAN4 MG PO; -[UNRECOGNIZED DRUG - OTHER] SC
[2018-04-12 13:01] LABS: BASOPHILS 0.1 % (0-2); EOSINOPHILS 3.1 % (0-7); HEMATOCRIT 38.7 % (36.0-48.0); HEMOGLOBIN 12.1 g/dL (12-16); IMMATURE GRANULOCYTES 0.1 % (0-5); MCH 26.5 pg (26.0-34.0); MCHC 31.3 g/dL (31.0-37.0); MCV 84.9 fL (80.0-100.0); MEAN PLATELET VOLUME 9.4 fL (7.4-10.4); MONOCYTES 12.1 % (2-11); NEUTROPHILS 74.6 % (40-80); RBC 4.56 10x6/uL (4.00-5.40); RDW 16.8 % (11.5-14.5); WBC 8.9 10x3/uL (4.8-10.8)
[2018-04-12 13:06] LABS: PLATELET COUNT 290 10x3/uL (130-400)
[2018-04-12 13:07] LABS: ANION GAP 22.5 mmol/L (8-16); BILIRUBIN - TOTAL 0.37 mg/dL (0.2-1.3); CALCIUM 10.1 mg/dL (8.5-10.1); CARBON DIOXIDE 20.2 mmol/L (21.0-32.0); CREATININE - SERUM 14.5 mg/dL (0.6-1.3); POTASSIUM - SERUM 5.7 mmol/L (3.5-5.1)
--- NOTE | 2018-04-12 13:27 | NUR ---
PT HAS DIALYSIS ON , , WED.
--- NOTE | 2018-04-12 13:27 | NUR ---
PT ATTEMPTED TO GIVE URINE SAMPLE VIA BEDPAN. PT UNABLE TO. STATES SHE DOES NOT PRODUCE MUCH URINE.
--- NOTE | 2018-04-12 13:42 | NUR ---
ORDER FROM DR RODRIGUEZ TO USE DIALYSIS CATHETER TO R CHEST.
--- NOTE | 2018-04-12 14:38 | NUR ---
SPOKE WITH ROSA CURRAN AND SHE STATES TO TRY AND GET PERIPHERAL IV AND NOT USE HEMOSPLIT. SHE STATES IF WE CAN NOT GET A PERIPHERAL IV TO CALL HER BACK. I VEBRALIZED UNDERSTANDING.
--- NOTE | 2018-04-12 15:02 | NUR ---
LEFT BREAST 22G IV INSERTED X1 ATTEMPT BY ER NURSE. NS INFUSING AT 25ML/HR.
--- NOTE | 2018-04-12 15:20 | NUR ---
RIGHT CHEST HEMOSPLIT DRESSING CHANGED USING STERILE TECHNIQUE. HEMOSPLIT HAS NO SUTURES AND WAS OUT A LITTLE. HELD HEMOSPLIT STILL AND REDRESSED.
--- NOTE | 2018-04-12 15:33 | MORECARE ---
CASE MANAGEMENT DISCHARGE SUMMARY PATIENT: PAULINO CORREIA UNIT: [id number] ADM DATE: 04/12/18 AGE: 63 : 55 SEX: F ROOM/BED: D.2132 AUTHOR: DARNELL KRAUS PHYSICIAN: REFERRING PHYSICIAN: BHAVANI HOFF MD DATE OF SERVICE: 04/12/18 Discharge Plan Patient Name: PAULINO CORREIA Facility: [facility]:[place] : 1955 Planned Disposition: Home Anticipated Discharge Date: 04/14/18 Discharge Date: Expected LOS: 2 Initial Reviewer: [email or web address] Initial Review Date: 04/12/2018 Generated: 04/12/18 4:33 pm DCPIA - Discharge Planning Initial Assessment Updated by [email or web address]: Joy Fischer on 04/12/18 3:29 pm * Is the patient Alert and Oriented? Yes * How many steps to enter\exit or inside your home? None * PCP Dr. Perez * Pharmacy [facility] * Preadmission Environment Home Alone * ADLs Partial Dependent * Partial ADLs (Assistance needed) Bathing * Equipment Cane Rolling Walker Wheelchair * List name and contact numbers for known caregivers / representatives who currently or will assist patient after discharge: Imelda wolf - [phone] * Verbal permission to speak to the caregivers and representatives has been obtained from the patient. Yes * Community resources currently utilized None * Please name any agencies selected above. [facility] T-Th-Sat - Drives herself to and from dialysis. * Additional services required to return to the preadmission environment? No * Can the patient safely return to the preadmission environment? Yes * Has this patient been hospitalized within the prior 30 days at any hospital? No Patient Name: PAULINO CORREIA Page [id number] at 1533 All edits/amendments must be made on the electronic document DICTATION DATE: 04/12/18 153 CHIEF DEPUTY CORONER: CARL 04/12/18 153 RPT#: [id number] DC DATE: STATUS: ADM IN [facility] [address] [place] [address] END OF REPORT
--- NOTE | 2018-04-12 15:46 | MORECARE ---
CASE MANAGEMENT DISCHARGE SUMMARY PATIENT: PAULINO CORREIA UNIT: [id number] ADM DATE: 04/12/18 AGE: 63 : 55 SEX: F ROOM/BED: D.9982 AUTHOR: DARNELL KRAUS PHYSICIAN: REFERRING PHYSICIAN: BHAVANI HOFF MD DATE OF SERVICE: 04/12/18 Discharge Plan Patient Name: PAULINO CORREIA Facility: [facility]:[place] : 1955 Planned Disposition: Home Anticipated Discharge Date: 04/14/18 Discharge Date: Expected LOS: 2 Initial Reviewer: [email or web address] Initial Review Date: 04/12/2018 Generated: 04/12/18 4:46 pm Comments DCP- Discharge Planning Updated by [email or web address]: Joy Fischer on 04/12/18 2:[address] Patient Name: PAULINO CORREIA Admission Status: ER Accout number: [id number] Admission Date: 04-12-2018 : 1955 Admission Diagnosis: Attending: BHAVANI HOFF Current LOS: 1 Anticipated DC Date: 04-14-2018 Planned Disposition: Home Primary Insurance: MEDICARE A & B Discharge Planning Comments: CM met with patient to complete initial dc planning assessment. CM educated patient on the CM role and verbal consent given by patient to complete assessment. Patient lives at home alone. She has family that lives nearby that assist as they can. Patient drives herself to and from dialysis every -Th-Wed. Patient is scheduled to have knee surgery on the 20 of April and she plans to go to rehab post surgery. She stated she wants to go to the rehab where she can stay the longest. Educated her on Medicare rule of 20 days paid at 100%. She verbalized understanding. For this admission patient plans to return home. CM discussed availability of home health, rehab services, and medical equipment. Patient denied known discharge needs at this time. Discussed homebound status for home health. CM will continue to follow and will assist as needed with dc plans/needs. Weight Engineer: Joy Fischer RN, [facility] DCPIA - Discharge Planning Initial Assessment Updated by [email or web address]: Joy Fischer on 04/12/18 3:29 pm * Is the patient Alert and Oriented? Yes * How many steps to enter\exit or inside your home? None * PCP Dr. Perez * Pharmacy [facility] * Preadmission Environment Home Alone * ADLs Partial Dependent * Partial ADLs (Assistance needed) Bathing * Equipment Cane Rolling Walker Wheelchair * List name and contact numbers for known caregivers / representatives who currently or will assist patient after discharge: Imelda wolf - [phone] * Verbal permission to speak to the caregivers and representatives has been obtained from the patient. Yes * Community resources currently utilized None * Please name any agencies selected above. [facility] T-Th-Sat - Drives herself to and from dialysis. * Additional services required to return to the preadmission environment? No * Can the patient safely return to the preadmission environment? Yes * Has this patient been hospitalized within the prior 30 days at any hospital? No Last DP export: 04/12/18 2:33 p Patient Name: PAULINO CORREIA Page [id number] at 1546 All edits/amendments must be made on the electronic document DICTATION DATE: 04/12/18 1545 FINANCIAL PLANNER: CARL 04/12/18 1545 RPT#: [id number] DC DATE: STATUS: ADM IN [facility] [address] [place] [address] END OF REPORT
[2018-04-12 15:52] VITALS: BP 146/35
[2018-04-12 17:15] VITALS: BP 146/35; BMI 38.3
--- NOTE | 2018-04-12 17:30 | NUR ---
MORPHINE HOSTING ENGINEER PUMP DC'D.
[2018-04-12 18:37] LABS: APPEARANCE CLEAR (CLEAR); BILIRUBIN NEGATIVE (NEGATIVE); COLOR YELLOW (YELLOW); GLUCOSE 100 mg/dL (NEGATIVE); KETONE NEGATIVE (NEGATIVE); NITRITE NEGATIVE (NEGATIVE); PROTEIN NEGATIVE (NEGATIVE); UROBILINOGEN NORMAL (NORMAL)
[2018-04-12 20:00] VITALS: BP 116/37
--- NOTE | 2018-04-12 20:03 | NUR ---
INITIAL ASSESSMENT COMPLETED - PT LETHARGIC AND ORIENTED X4. PT STAES PAIN OF 0/10. VSS, RR EVEN AND UL. L CHEST PIV INFUSING NS AT 20 ML/HR. IV PATENT, DRESSING C/D/I. PT DENIES ANY NEEDS AT THIS TIME. WILL CONTINUE TO ASSESS NEEDS AND FOLLOW POC. CL IN REACH, SR UP X2, BED IN LOWEST POSITION.
--- NOTE | 2018-04-12 22:16 | NUR ---
TO PT ROOM VIA CALL LIGHT - PT C/O SEVERE PAIN IN R ANKLE. RLE SWOLLEN, RED, AND HOT TO TOUCH. PAIN 10/10. ADMINISTERED TYLENOL ODERED FOR BREAKTHROUGH PAIN. REPOSITIONED PILLOW UNDER R LEG TO ALLEVIATE PRESSURE AND REPOSITIONED PT IN BED WITH LEGS INCLINED. PT STATES NO FURTHER NEEDS AT THIS TIME. WCTM AND FOLLOW POC. CL IN REACH, SR UP X2, BED IN LOWEST POSITION.
--- NOTE | 2018-04-12 22:55 | NUR ---
TO PT ROOM VIA PAIN REASSESSMENT. PT SLEEP, EASY TO AROUSE. STATES HER PAIN IS MUCH BETTER, AT A 6/10 NOW. PT SEEMS MORE CALM AND AT EASE. WCTM AND FOLLOW POC. CL IN REACH, SR UP X2, BED IN LOWEST POSITION.
--- NOTE | 2018-04-13 00:08 | NUR ---
TO PT ROOM VIA CALL LIGHT - PT STATES SHE WANTS TO GET UP EVEN THOUGH SHE HAS PAIN 10/10. EDUCATED PT THAT GETTING UP WILL AGGRAVATE THE PAIN. PT VERBALIZED UNDERSTANDING BUT STILL WANTS TO GET UP. PT UP TO BEDSIDE WITH ASSIST X2. PT MOANING IN SEVERE PAIN. PT MOBILITY LIMITED, R KNEE SWOLLEN AND HOT TO TOUCH. ASSISTED PT BACK TO BED X2 ASSIST. REPOSITIONED LEGS, ADMINSITERED PRESCRIBED ANALGESIC. WCTM AND FOLLOW POC. CL IN REACH, SR UPX2, BED IN LOWEST POSITION.
[2018-04-13 04:00] VITALS: BP 96/75
--- NOTE | 2018-04-13 05:12 | NUR ---
RESUMING PT CARE - PT RESTING IN BED WITH EYES CLOSED. AROUSES EASILY TO NOISE. PAIN 4/10, BUT TOLERABLE. PT STATES SHE "WANTS TO GO BACK TO SLEEP." RR EVEN AND UL, NO S/S OF DISTRESS. NOTE FURTHER NEEDS NOTED AT THIS TIME. CL IN REACH, SR UP X2, BED IN LOWEST POSITION.
[2018-04-13 05:41] LABS: BASOPHILS 0.3 % (0-2); EOSINOPHILS 7.6 % (0-7); HEMATOCRIT 35.4 % (36.0-48.0); HEMOGLOBIN 10.7 g/dL (12-16); IMMATURE GRANULOCYTES 0.3 % (0-5); LYMPHOCYTES 20.7 % (15-50); MCH 25.7 pg (26.0-34.0); MCHC 30.2 g/dL (31.0-37.0); MCV 85.1 fL (80.0-100.0); MEAN PLATELET VOLUME 9.7 fL (7.4-10.4); MONOCYTES 15.4 % (2-11); NEUTROPHILS 55.7 % (40-80); PLATELET COUNT 283 10x3/uL (130-400); RBC 4.16 10x6/uL (4.00-5.40); RDW 16.7 % (11.5-14.5); WBC 7.1 10x3/uL (4.8-10.8)
[2018-04-13 06:17] LABS: ANION GAP 23.8 mmol/L (8-16); CARBON DIOXIDE 18.9 mmol/L (21.0-32.0); CREATININE - SERUM 15.1 mg/dL (0.6-1.3); POTASSIUM - SERUM 5.7 mmol/L (3.5-5.1)
[2018-04-13 08:15] VITALS: BP 129/69
--- NOTE | 2018-04-13 09:25 | NUR ---
PT TAKEN TO DIALYSIS VIA BED.
--- NOTE | 2018-04-13 09:30 | NUR ---
IN DIALYSIS AT THIS TIME. WILL CONT. PLAN OF CARE.
--- NOTE | 2018-04-13 09:35 | NUR ---
DIALYSIS CALLED AND STATES LEFT BREAST 22G IV CAME OUT.
--- NOTE | 2018-04-13 10:11 | NUR ---
HEMOSPLIT DRESSING KIT TAKEN TO DIALYSIS.
--- NOTE | 2018-04-13 10:16 | NUR ---
STATED TO JOI CURRAN THAT PT NO LONGER HAS AN IV. SHE STATES "THAT'S OK. JUST LEAVE IT OUT. DON'T WORRY ABOUT IT THAN."
--- NOTE | 2018-04-13 11:27 | NUR ---
Rehab Prescreening Consult recieved and the chart has been reviewed. She is a new admit and is in dialysis this morning. She has a PT eval ordered but not completed. Rehab will follow to see if she meets criteria after her PT eval. Lian Chase RN Clinical Liaison, Rehab
--- NOTE | 2018-04-13 13:00 | NUR ---
DIALYSIS STATES THEY GOT 2L OFF PATIENT.
[2018-04-13 13:11] VITALS: Ht 157.5 cm; Wt 85.6 kg
--- NOTE | 2018-04-13 13:32 | NUR ---
PT RETURNED FROM DIALYSIS VIA BED. AND PLACED PT ON BED MARCUS AND PT VOIDED. READJUSTED PT IN BED TO HER COMFORT. PT HAS NO FURTHER NEEDS AT THIS TIME.
--- NOTE | 2018-04-13 13:58 | NUR ---
KISHAN FROM PHYSICAL THERAPY STATES [facility] PHYSICAL THERAPIST IS GOING TO COME EVALUATE PT.
--- NOTE | 2018-04-13 14:23 | NUR ---
ZENON COLLISION WORKER TO GET PT A SHEET METAL WORKER SUPERVISOR.
[2018-04-13 15:26] VITALS: BP 124/72
--- NOTE | 2018-04-13 16:48 | NUR ---
PT REFUSING TELEMETRY. PT STATES SHE HAD "AN ECHO LAST MONTH AND HER HEART IS FINE AND SHE IS NOT GOING TO WEAR HEART MONITOR."
--- NOTE | 2018-04-13 17:07 | MORECARE ---
CASE MANAGEMENT DISCHARGE SUMMARY PATIENT: PAULINO CORREIA UNIT: [id number] ADM DATE: 04/12/18 AGE: 63 : 55 SEX: F ROOM/BED: D.6252 AUTHOR: DARNELL KRAUS PHYSICIAN: REFERRING PHYSICIAN: BHAVANI HOFF MD DATE OF SERVICE: 04/13/18 Discharge Plan Patient Name: PAULINO CORREIA Facility: [facility]:[place] : 1955 Planned Disposition: Home Anticipated Discharge Date: 04/14/18 Discharge Date: Expected LOS: 2 Initial Reviewer: [email or web address] Initial Review Date: 04/12/2018 Generated: 04/13/18 6:07 pm Comments DCP- Discharge Planning Updated by [email or web address]: Joy Fischer on 04/12/18 2:[address] Patient Name: PAULINO CORREIA Admission Status: ER Accout number: [id number] Admission Date: 04-12-2018 : 1955 Admission Diagnosis: Attending: BHAVANI HOFF Current LOS: 1 Anticipated DC Date: 04-14-2018 Planned Disposition: Home Primary Insurance: MEDICARE A & B Discharge Planning Comments: CM met with patient to complete initial dc planning assessment. CM educated patient on the CM role and verbal consent given by patient to complete assessment. Patient lives at home alone. She has family that lives nearby that assist as they can. Patient drives herself to and from dialysis every -Th-Wed. Patient is scheduled to have knee surgery on the 20 of April and she plans to go to rehab post surgery. She stated she wants to go to the rehab where she can stay the longest. Educated her on Medicare rule of 20 days paid at 100%. She verbalized understanding. For this admission patient plans to return home. CM discussed availability of home health, rehab services, and medical equipment. Patient denied known discharge needs at this time. Discussed homebound status for home health. CM will continue to follow and will assist as needed with dc plans/needs. Crane Crew Supervisor: Joy Fischer RN, [facility] DCPIA - Discharge Planning Initial Assessment Updated by [email or web address]: Joy Fischer on 04/12/18 3:29 pm * Is the patient Alert and Oriented? Yes * How many steps to enter\exit or inside your home? None * PCP Dr. Perez * Pharmacy [facility] * Preadmission Environment Home Alone * ADLs Partial Dependent * Partial ADLs (Assistance needed) Bathing * Equipment Cane Rolling Walker Wheelchair * List name and contact numbers for known caregivers / representatives who currently or will assist patient after discharge: Imelda wolf - [phone] * Verbal permission to speak to the caregivers and representatives has been obtained from the patient. Yes * Community resources currently utilized None * Please name any agencies selected above. [facility] T-[facility]-Sat - Drives herself to and from dialysis. * Additional services required to return to the preadmission environment? No * Can the patient safely return to the preadmission environment? Yes * Has this patient been hospitalized within the prior 30 days at any hospital? No Last DP export: 04/12/18 2:46 p Patient Name: PAULINO CORREIA Page 54718 at 1707 All edits/amendments must be made on the electronic document DICTATION DATE: 04/13/181705 BARGE PILOT: CARL 04/13/181705 RPT#: [id number] DC DATE: STATUS: ADM IN [facility] [address] [place] [address] END OF REPORT
--- NOTE | 2018-04-13 17:21 | MORECARE ---
CASE MANAGEMENT DISCHARGE SUMMARY PATIENT: PAULINO CORREIA UNIT: [id number] ADM DATE: 04/12/18 AGE: 63 : 55 SEX: F ROOM/BED: D.5642 AUTHOR: DARNELL KRAUS PHYSICIAN: REFERRING PHYSICIAN: BHAVANI HOFF MD DATE OF SERVICE: 04/13/18 Discharge Plan Patient Name: PAULINO CORREIA Facility: [facility]:[place] : 1955 Planned Disposition: Home Anticipated Discharge Date: 04/14/18 Discharge Date: Expected LOS: 2 Initial Reviewer: [email or web address] Initial Review Date: 04/12/2018 Generated: 04/13/18 6:20 pm Comments DCP- Discharge Planning Updated by [email or web address]: Je Ferrer on 04/13/18 4:[address] Patient Name: PAULINO CORREIA Encounter No: [id number] : 1955 Primary Insurance: MEDICARE A & B Anticipated DC Date: 04-14-2018 DCP follow-up note: CM RECEIVED PHONE MESSAGE REPORTING PT'S DAUGHTER WANTS REHAB FOR PT PRIOR TO GOING HOME. CM ATTEMPTED TO MEET WITH PT AT 0920 AND 1000 HOURS, PT NOT IN ROOM. CM RECEIVED CALL FROM MILE [employer]ONE, . NAILA REPORTS PT IS NOT ABLE TO GO HOME ALONE AND IS NOT ABLE TO GET TO AND FROM DIALYSIS. CM DISCUSSED THAT PT HAS NO QUALIFYING DIAGNOSIS FOR INPATIENT REHAB AND DOES NOT APPEAR TO BE ABLE TO PARTICIPATE IN THERAPY AT THIS TIME. NAILA REPORTS UNDERSTANDING SHE HAS TALKED TO DR. PEREZ. WINNIE DISCUSSED FDC PLACEMENT PT HAS 20 DAYS AT 100% COVERAGE FOR THERAPY SERVICES. NAILA REPORTS AGAIN THAT PT IS NOT YET ABLE TO PARTICIPATE IN THERAPY SERVICES. CM DISCUSSED PLACEMENT IN SKILLED NURSING CARE; NAILA STATES THAT PT APPLIED FOR MEDICAID ABOUT ONE YEAR AGO BUT DID NOT QUALIFY; THEY WANT PT REEVALUATED FOR MEDICAID PT NOW LIVES ALONE. NAILA ASKED ABOUT HOME HEALTH PROVIDING HOME CARE. WINNIE EXPLAINED THAT MEDICARE DOES NOT PAY FOR PERSONAL CARE SERVICES AND WILL NOT BE IN THE HOME MUCH PT IS NEEDED. NAILA CONTINUES TO REPORT THAT PT CANNOT GO HOME. NAILA REPORTS THAT DR. PEREZ IS THERE WITH HER NOW. CM EXPLAINED THAT CM WILL HAVE MARLYN WITH [employer] SPEAK TO PT REGARDING POSSIBLE MEDICAID AND CM WILL DO TRY TO ASSIST PT WITH NEEDED CARE / PLACEMENT. CM CALLED MARLYN OF [employer] OF [employer] WHO MET WITH PT AND REPORTS TO CM THAT PT'S INCOME IS STILL TOO HIGH AT $1900 PER MONTH, FOR MEDICAID AND DOES NOT YET QUALIFY FOR SPEND DOWN MEDICAID. CM TO MEET WITH PT REGARDING HER VERY LIMITED OPTIONS PT'S DAUGHTER REPORTING PT IS NOT SAFE TO DISCHARGE HOME ALONE AND DOES NOT QUALIFY FOR INPATIENT OR FDC REHAB SERVICES AT THIS TIME. Je Ferrer, CASE MANAGEMENT DCP- Discharge Planning Updated by [email or web address]: Joy Fischer on 04/12/18 2:[address] Patient Name: PAULINO CORREIA Admission Status: ER Accout number: [id number] Admission Date: 04-12-2018 : 1955 Admission Diagnosis: Attending: BHAVANI HOFF Current LOS: 1 Anticipated DC Date: 04-14-2018 Planned Disposition: Home Primary Insurance: MEDICARE A & B Discharge Planning Comments: CM met with patient to complete initial dc planning assessment. CM educated patient on the CM role and verbal consent given by patient to complete assessment. Patient lives at home alone. She has family that lives nearby that assist as they can. Patient drives herself to and from dialysis every -Th-Wed. Patient is scheduled to have knee surgery on the 20 of April and she plans to go to rehab post surgery. She stated she wants to go to the rehab where she can stay the longest. Educated her on Medicare rule of 20 days paid at 100%. She verbalized understanding. For this admission patient plans to return home. CM discussed availability of home health, rehab services, and medical equipment. Patient denied known discharge needs at this time. Discussed homebound status for home health. CM will continue to follow and will assist as needed with dc plans/needs. Fire Manager: Joy Fischer RN, [facility] DCPIA - Discharge Planning Initial Assessment Updated by [email or web address]: Joy Fischer on 04/12/18 3:29 pm * Is the patient Alert and Oriented? Yes * How many steps to enter\exit or inside your home? None * PCP Dr. Perez * Pharmacy [facility] * Preadmission Environment Home Alone * ADLs Partial Dependent * Partial ADLs (Assistance needed) Bathing * Equipment Cane Rolling Walker Wheelchair * List name and contact numbers for known caregivers / representatives who currently or will assist patient after discharge: Imelda Hester - mother - [phone] * Verbal permission to speak to the caregivers and representatives has been obtained from the patient. Yes * Community resources currently utilized None * Please name any agencies selected above. [facility] T-Th-Sat - Drives herself to and from dialysis. * Additional services required to return to the preadmission environment? No * Can the patient safely return to the preadmission environment? Yes * Has this patient been hospitalized within the prior 30 days at any hospital? No Last DP export: 04/13/18 4:07 p Patient Name: PAULINO CORREIA Page [id number] at 1721 All edits/amendments must be made on the electronic document DICTATION DATE: 04/13/181719 ELEVATORS INSPECTOR: CARL 04/13/181719 RPT#: [id number] DC DATE: STATUS: ADM IN [facility] [address] [place] [address] END OF REPORT
[2018-04-13 20:00] VITALS: BP 112/69
[2018-04-14] VITALS: BP 117/43
[2018-04-14 04:32] VITALS: BP 119/64
[2018-04-14 06:00] LABS: BASOPHILS 0.3 % (0-2); EOSINOPHILS 9.7 % (0-7); HEMATOCRIT 37.2 % (36.0-48.0); HEMOGLOBIN 11.1 g/dL (12-16); IMMATURE GRANULOCYTES 0.2 % (0-5); LYMPHOCYTES 18.7 % (15-50); MCH 25.7 pg (26.0-34.0); MCHC 29.8 g/dL (31.0-37.0); MCV 86.1 fL (80.0-100.0); MEAN PLATELET VOLUME 9.7 fL (7.4-10.4); NEUTROPHILS 55.1 % (40-80); PLATELET COUNT 267 10x3/uL (130-400); RBC 4.32 10x6/uL (4.00-5.40); RDW 16.5 % (11.5-14.5)
[2018-04-14 06:32] LABS: ANION GAP 18.2 mmol/L (8-16); CALCIUM 9.9 mg/dL (8.5-10.1)
[2018-04-14 06:33] LABS: CARBON DIOXIDE 23.8 mmol/L (21.0-32.0); CREATININE - SERUM 10.1 mg/dL (0.6-1.3)
--- NOTE | 2018-04-14 07:45 | NUR ---
RESUMING PT CARE, PT LAYING IN BED AND IS ALERT AND ORIENTED X3, C/O RIGHT KNEE PAIN, PAIN MEDS GIVEN BY NIGHT NURSE. CALL LIGHT IN REACH, WILL CONTINUE TO MONITOR AND FOLLOW PLAN OF CARE.
[2018-04-14 09:00] VITALS: BP 107/40
--- NOTE | 2018-04-14 09:50 | NUR ---
RESTS IN BED WITHOU NEEDS VOICED. CALL LIGHT IN REACH. WILL MONITOR.
--- NOTE | 2018-04-14 10:00 | NUR ---
CONSENTS OBTAINED FOR RIGHT KNEE ASPIRATION.
--- NOTE | 2018-04-14 10:40 | NUR ---
PT LAYING IN BED ALERT AND ORIENTED X3, DR NAJERA ASPIRATED FLUID FROM RIGHT KNEE, SAMPLES SENT TO LAB. ULTRASOUND CALLED AND SAID IT IS NEGATIVE FOR DVT. PT NOTIFIED. CALL LIGHT IN REACH, WILL CONTINUE TO MONITOR.
[2018-04-14 11:38] LABS: ERYTHROCYTE SEDIMENTATION RATE 36 mm/hr (0-30)
[2018-04-14 12:43] VITALS: BP 109/76
[2018-04-14 15:05] LABS: MACROPHAGES BF 22 %; NEUT - BF 60 %
[2018-04-14 16:05] VITALS: BP 125/44
--- NOTE | 2018-04-14 17:02 | NUR ---
PER DR ESCOBAR I CALLED DR HOFF TO SEE IF PT WOULD BE ABLE TO TAKE INDOCIN, DR HOFF SAID YES AND TO ASK DR ESCOBAR THE DOSE. I SPOKE WITH DR ESCOBAR AGAIN AND HE SAID TO HAVE MEDICAL MANAGMENT NOTIFIED TO DOSE HER. I SPOKE WITH WALI CARIAS APRN AND TOLD HER WHAT WAS NEEDED, SHE SAID IT WILL BE TOMORROW AND THEY WILL COME SEE HER.
--- NOTE | 2018-04-14 17:46 | MORECARE ---
CASE MANAGEMENT DISCHARGE SUMMARY PATIENT: PAULINO CORREIA UNIT: [id number] ADM DATE: 04/12/18 AGE: 63 : 55 SEX: F ROOM/BED: D.3032 AUTHOR: DARNELL KRAUS PHYSICIAN: REFERRING PHYSICIAN: BHAVANI HOFF MD DATE OF SERVICE: 04/14/18 Discharge Plan Patient Name: PAULINO CORREIA Facility: [facility]:[place] : 1955 Planned Disposition: Home Anticipated Discharge Date: 04/14/18 Discharge Date: Expected LOS: 2 Initial Reviewer: [id number] Initial Review Date: 04/12/2018 Generated: 04/14/18 6:46 pm Comments DCP- Discharge Planning Updated by [id number]: Je Ferrer on 04/13/18 4:[address] Patient Name: PAULINO CORREIA Encounter No: [id number] : 1955 Primary Insurance: MEDICARE A & B Anticipated DC Date: 04-14-2018 DCP follow-up note: CM RECEIVED PHONE MESSAGE REPORTING PT'S DAUGHTER WANTS REHAB FOR PT PRIOR TO GOING HOME. CM ATTEMPTED TO MEET WITH PT AT 0920 AND 1000 HOURS, PT NOT IN ROOM. CM RECEIVED CALL FROM MLIE CAPONE, . NAILA REPORTS PT IS NOT ABLE TO GO HOME ALONE AND IS NOT ABLE TO GET TO AND FROM DIALYSIS. CM DISCUSSED THAT PT HAS NO QUALIFYING DIAGNOSIS FOR INPATIENT REHAB AND DOES NOT APPEAR TO BE ABLE TO PARTICIPATE IN THERAPY AT THIS TIME. NAILA REPORTS UNDERSTANDING SHE HAS TALKED TO DR. PEREZ. WINNIE DISCUSSED LONGTERM PLACEMENT PT HAS 20 DAYS AT 100% COVERAGE FOR THERAPY SERVICES. NAILA REPORTS AGAIN THAT PT IS NOT YET ABLE TO PARTICIPATE IN THERAPY SERVICES. CM DISCUSSED PLACEMENT IN LONG TERM CARE; NAILA STATES THAT PT APPLIED FOR MEDICAID ABOUT ONE YEAR AGO BUT DID NOT QUALIFY; THEY WANT PT REEVALUATED FOR MEDICAID PT NOW LIVES ALONE. NAILA ASKED ABOUT HOME HEALTH PROVIDING HOME CARE. WINNIE EXPLAINED THAT MEDICARE DOES NOT PAY FOR PERSONAL CARE SERVICES AND WILL NOT BE IN THE HOME MUCH PT IS NEEDED. NAILA CONTINUES TO REPORT THAT PT CANNOT GO HOME. NAILA REPORTS THAT DR. PEREZ IS THERE WITH HER NOW. CM EXPLAINED THAT CM WILL HAVE MARLYN WITH [employer] SPEAK TO PT REGARDING POSSIBLE MEDICAID AND CM WILL DO TRY TO ASSIST PT WITH NEEDED CARE / PLACEMENT. CM CALLED MARLYN OF [facility] [employer] OF [employer] WHO MET WITH PT AND REPORTS TO CM THAT PT'S INCOME IS STILL TOO HIGH AT $1900 PER MONTH, FOR MEDICAID AND DOES NOT YET QUALIFY FOR SPEND DOWN MEDICAID. CM TO MEET WITH PT REGARDING HER VERY LIMITED OPTIONS PT'S DAUGHTER REPORTING PT IS NOT SAFE TO DISCHARGE HOME ALONE AND DOES NOT QUALIFY FOR INPATIENT OR LONGTERM REHAB SERVICES AT THIS TIME. Je Ferrer, CASE MANAGEMENT DCP- Discharge Planning Updated by [id number]: Joy Fischer on 04/12/18 2:[address] Patient Name: PAULINO CORREIA Admission Status: ER Accout number: [id number] Admission Date: 04-12-2018 : 1955 Admission Diagnosis: Attending: BHAVANI HOFF Current LOS: 1 Anticipated DC Date: 04-14-2018 Planned Disposition: Home Primary Insurance: MEDICARE A & B Discharge Planning Comments: CM met with patient to complete initial dc planning assessment. CM educated patient on the CM role and verbal consent given by patient to complete assessment. Patient lives at home alone. She has family that lives nearby that assist as they can. Patient drives herself to and from dialysis every -Th-Wed. Patient is scheduled to have knee surgery on the 20 of April and she plans to go to rehab post surgery. She stated she wants to go to the rehab where she can stay the longest. Educated her on Medicare rule of 20 days paid at 100%. She verbalized understanding. For this admission patient plans to return home. CM discussed availability of home health, rehab services, and medical equipment. Patient denied known discharge needs at this time. Discussed homebound status for home health. CM will continue to follow and will assist as needed with dc plans/needs. Automotive Design Drafter: Joy Fischer RN, [facility] DCPIA - Discharge Planning Initial Assessment Updated by [id number]: Joy Fischer on 04/12/18 3:29 pm * Is the patient Alert and Oriented? Yes * How many steps to enter\exit or inside your home? None * PCP Dr. Perez * Pharmacy [facility] * Preadmission Environment Home Alone * ADLs Partial Dependent * Partial ADLs (Assistance needed) Bathing * Equipment Cane Rolling Walker Wheelchair * List name and contact numbers for known caregivers / representatives who currently or will assist patient after discharge: Imelda Hester - mother - [phone] * Verbal permission to speak to the caregivers and representatives has been obtained from the patient. Yes * Community resources currently utilized None * Please name any agencies selected above. [facility] T-Th-Sat - Drives herself to and from dialysis. * Additional services required to return to the preadmission environment? No * Can the patient safely return to the preadmission environment? Yes * Has this patient been hospitalized within the prior 30 days at any hospital? No Coverage Notice Reviewer: [id number] Virginia Ferrer Notice Issued Date-Time: 04/14/2018 14:45 Notice Type: IM Discharge Notice Notice Delivered To: Patient Relationship to Patient: Clip Wrapper Name: Delivery Method: HAND - Hand Delivered Eli Days: Prior Verbal Notification: Recipient Understood Notice: Yes Recipient Signature: Yes Med Rec Note Co-signed by Attending: Coverage Notice Comment: Last DP export: 04/13/18 4:21 p Patient Name: PAULINO CORREIA Page [phone] at 1746 All edits/amendments must be made on the electronic document DICTATION DATE: 04/14/181745 LOAD HAUL DUMP OPERATOR: CARL 04/14/181745 RPT#: [id number] DC DATE: STATUS: ADM IN [facility] [address] [place] [address] END OF REPORT
--- NOTE | 2018-04-14 17:58 | MORECARE ---
CASE MANAGEMENT DISCHARGE SUMMARY PATIENT: PAULINO CORREIA UNIT: [id number] ADM DATE: 04/12/18 AGE: 63 : 55 SEX: F ROOM/BED: D.7039 AUTHOR: DARNELL KRAUS PHYSICIAN: REFERRING PHYSICIAN: BHAVANI HOFF MD DATE OF SERVICE: 04/14/18 Discharge Plan Patient Name: PAULINO CORREIA Facility: [facility]:[place] : 1955 Planned Disposition: Home Anticipated Discharge Date: 04/14/18 Discharge Date: Expected LOS: 2 Initial Reviewer: [email or web address] Initial Review Date: 04/12/2018 Generated: 04/14/18 6:58 pm Comments DCP- Discharge Planning Updated by [email or web address]: Je Ferrer on 04/14/18 4:[address] Patient Name: PAULINO CORREIA Encounter No: [id number] : 1955 Primary Insurance: MEDICARE A & B Anticipated DC Date: 04-14-2018 Planned Disposition: Home DCP follow-up note: CM SPOKE TO PT IN ROOM REGARDING DISCHARGE PLANNING. CM EXPLAINED THAT PT'S DAUGHTER, JANNETTE, CALLED AND WAS CONCERNED THAT PT IS NOT SAFE TO RETURN HOME SHE IS NOT ABLE TO STAND, WALK AND GET SELF TO DIALYSIS. CM ALSO INFORMED PT THAT HE DAUGHTER WANTS PT TO HAVE SOME SORT OF REHAB PLACEMENT. CM ALSO EXPLAINED THAT JANNETTE HAD ASKED THAT PT BE RE EVALUATED FOR MEDICAID ELIGIBILITY. CM EXPLAINED THAT MARLYN FROM [facility] [employer] AT [place] ASSESSED FOR MEDICAID AND PT IS OVER INCOME FOR MEDICAID AND DOES NOT QUALIFY FOR MEDICAID SPEND DOWN AT THIS TIME EITHER. PT STATES THAT JANNETTE IS HER STEP DAUGHTER. PT REPORTS THAT "THEY DON'T TELL YOU BEFORE YOU START DIALYSIS THAT YOU NEED A SECONDARY INSURANCE AND ONCE YOU START DIALYSIS, YOU CANNOT GET THE INSURANCE YOU NEED." PT DOES NOT WANT PLACEMENT IN INTERMEDIATE OR GROUP HOME FACILITY STATING SHE DOES NOT WANT TO "WASTE HER DAYS" SHE HAS FOR REHAB (PATIENT HAS ONLY 20 DAYS OF NON COPAY FOR GROUP HOME). CM EXPLAINED THAT PT IS NOT ELIGIBLE FOR INPATIENT REHAB AT THIS TIME. CM ASKED PT WHAT HER PLAN IS FOR DISCHARGE FROM HOSPITAL SINCE HER SURGERY IS NOT UNTIL 20. PT STATES THAT IS GOING TO HAVE TO GET MORE IMAGES TO DETERMINE IF PT EVEN NEEDS A TOTAL KNEE REPLACEMENT. CM EXPLAINED THAT DOES NOT MAKE SENSE TO CM THE DOCTOR HAS ALREADY SCHEDULED SURGERY FOR TOTAL KNEE REPLACMENT PRIOR TO HOSPITAL STAY AND THAT HE MUST ALREADY BE SURE PT NEEDS IT. PT PROVIDED HISTORY OF KIDNEY DISEASE AND BONE DEGENERATION WHY MORE IMAGES ARE NEEDED. PT REPORTS SHE CAME TO HOSPITAL EARLY BECAUSE SHE COULD NOT GET TO DIALYSIS DUE TO KNEE PAIN. CM ASKED WHAT PT PLANS TO DO IF SHE IS NOT KEPT IN HOSPTIAL UNTIL SURGERY; PT STATES THAT DR. LAWSON TOLD HER THAT HE IS GOING TO KEEP PT IN THE HOSPITAL LONG HE CAN. CM AGAIN ASKED PT'S DISCHARGE PLAN IF NOT STAYING IN THE HOSPITAL, PT STATES SHE PLANS TO GO HOME. CM EXPRESSED CONCERN THAT FAMILY HAS STATED IT IS NOT SAFE FOR PT TO GO HOME ALONE, THAT PT IS NOT ABLE TO GET UP AND WALK; PT STATES SHE WAS ABLE TO SIT AT BEDSIDE TODAY WITH THERAPY AND PLANS TO GO HOME IF DISCHARGED PRIOR TO SURGERY AND CAN GET HERSELF TO DIALYSIS. PT IS NOT ELIGIBLE FOR INPATIENT REHAB AT THIS TIME, IS NOT ELIGIBLE FOR MEDICAID FOR [facility] PLACEMENT IN INTERMEDIATE AND REFUSES FOR CM TO ATTEMPT PLACEMENT INTO GROUP HOME STATING SHE DOES NOT WANT TO "WASTE HER DAYS" (PT HAS ONLY 20 NON COPAY DAYS FOR GROUP HOME REHAB). PT PLANS TO DISCHARGE HOME ALONE AND INDEPENDENTLY IF DISCHARGED HOME PRIOR TO KNEE REPLACEMENT SURGERY. CM TO CONTINUE TO FOLLOW AND ASSIST NEEDED. Je Ferrer, CASE MANAGEMENT DCP- Discharge Planning Updated by [id number]: Je Ferrer on 04/13/18 4:[address] Patient Name: PAULINO CORREIA Encounter No: [id number] : 1955 Primary Insurance: MEDICARE A & B Anticipated DC Date: 04-14-2018 DCP follow-up note: CM RECEIVED PHONE MESSAGE REPORTING PT'S DAUGHTER WANTS REHAB FOR PT PRIOR TO GOING HOME. CM ATTEMPTED TO MEET WITH PT AT 0920 AND 1000 HOURS, PT NOT IN ROOM. CM RECEIVED CALL FROM MILE CAPONE, . NAILA REPORTS PT IS NOT ABLE TO GO HOME ALONE AND IS NOT ABLE TO GET TO AND FROM DIALYSIS. CM DISCUSSED THAT PT HAS NO QUALIFYING DIAGNOSIS FOR INPATIENT REHAB AND DOES NOT APPEAR TO BE ABLE TO PARTICIPATE IN THERAPY AT THIS TIME. NAILA REPORTS UNDERSTANDING SHE HAS TALKED TO DR. PEREZ. CM DISCUSSED GROUP HOME PLACEMENT PT HAS 20 DAYS AT 100% COVERAGE FOR THERAPY SERVICES. NAILA REPORTS AGAIN THAT PT IS NOT YET ABLE TO PARTICIPATE IN THERAPY SERVICES. CM DISCUSSED PLACEMENT IN INTERMEDIATE CARE; NAILA STATES THAT PT APPLIED FOR MEDICAID ABOUT ONE YEAR AGO BUT DID NOT QUALIFY; THEY WANT PT REEVALUATED FOR MEDICAID PT NOW LIVES ALONE. NAILA ASKED ABOUT HOME HEALTH PROVIDING HOME CARE. CM EXPLAINED THAT MEDICARE DOES NOT PAY FOR PERSONAL CARE SERVICES AND WILL NOT BE IN THE HOME MUCH PT IS NEEDED. NAILA CONTINUES TO REPORT THAT PT CANNOT GO HOME. NAILA REPORTS THAT DR. PEREZ IS THERE WITH HER NOW. CM EXPLAINED THAT CM WILL HAVE MARLYN WITH [employer] SPEAK TO PT REGARDING POSSIBLE MEDICAID AND CM WILL DO TRY TO ASSIST PT WITH NEEDED CARE / PLACEMENT. CM CALLED MARLYN OF [facility] OF [employer] WHO MET WITH PT AND REPORTS TO CM THAT PT'S INCOME IS STILL TOO HIGH AT $1900 PER MONTH, FOR MEDICAID AND DOES NOT YET QUALIFY FOR SPEND DOWN MEDICAID. CM TO MEET WITH PT REGARDING HER VERY LIMITED OPTIONS PT'S DAUGHTER REPORTING PT IS NOT SAFE TO DISCHARGE HOME ALONE AND DOES NOT QUALIFY FOR INPATIENT OR GROUP HOME REHAB SERVICES AT THIS TIME. Je Ferrer, CASE MANAGEMENT DCP- Discharge Planning Updated by [id number]: Joy Fischer on 04/12/18 2:[address] Patient Name: PAULINO CORREIA Admission Status: ER Accout number: [id number] Admission Date: 04-12-2018 : 1955 Admission Diagnosis: Attending: BHAVANI HOFF Current LOS: 1 Anticipated DC Date: 04-14-2018 Planned Disposition: Home Primary Insurance: MEDICARE A & B Discharge Planning Comments: CM met with patient to complete initial dc planning assessment. CM educated patient on the CM role and verbal consent given by patient to complete assessment. Patient lives at home alone. She has family that lives nearby that assist as they can. Patient drives herself to and from dialysis every T-Th-Sat. Patient is scheduled to have knee surgery on the 20 of April and she plans to go to rehab post surgery. She stated she wants to go to the rehab where she can stay the longest. Educated her on Medicare rule of 20 days paid at 100%. She verbalized understanding. For this admission patient plans to return home. CM discussed availability of home health, rehab services, and medical equipment. Patient denied known discharge needs at this time. Discussed homebound status for home health. CM will continue to follow and will assist as needed with dc plans/needs. Science Manager: Joy Fischer RN, [facility] DCPIA - Discharge Planning Initial Assessment Updated by [id number]: Joy Fischer on 04/12/18 3:29 pm * Is the patient Alert and Oriented? Yes * How many steps to enter\\exit or inside your home? None * PCP Dr. Perez * Pharmacy [facility] * Preadmission Environment Home Alone * ADLs Partial Dependent * Partial ADLs (Assistance needed) Bathing * Equipment Cane Rolling Walker Wheelchair * List name and contact numbers for known caregivers / representatives who currently or will assist patient after discharge: Imelda Coleman [facility] - [phone] * Verbal permission to speak to the caregivers and representatives has been obtained from the patient. Yes * Community resources currently utilized None * Please name any agencies selected above. [facility] T-Th-Sat - Drives herself to and from dialysis. * Additional services required to return to the preadmission environment? No * Can the patient safely return to the preadmission environment? Yes * Has this patient been hospitalized within the prior 30 days at any hospital? No Coverage Notice Reviewer: [id number] - Je Ferrer Notice Issued Date-Time: 04/14/2018 14:45 Notice Type: IM Discharge Notice Notice Delivered To: Patient Relationship to Patient: Vocational Adviser Name: Delivery Method: HAND - Hand Delivered Eli Days: Prior Verbal Notification: Recipient Understood Notice: Yes Recipient Signature: Yes Med Rec Note Co-signed by Attending: Coverage Notice Comment: Last DP export: 04/14/18 4:46 p Patient Name: PAULINO CORREIA Page [phone] at 1758 All edits/amendments must be made on the electronic document DICTATION DATE: 04/14/181757 GAME BIRD FARMER: CARL 04/14/181757 RPT#: [id number] DC DATE: STATUS: ADM IN [facility] [address] [place] [address] END OF REPORT
--- NOTE | 2018-04-14 17:58 | NUR ---
PER DR NAJERA GIVE ONE DOSE OF INDOCIN [address] VELASCO WILL SEE HER TOMORROW TO FOLLOW UP ON WHAT DOSING SHE NEEDS, I SPOKE WITH WALI WARREN.
--- NOTE | 2018-04-14 19:54 | NUR ---
RESUMING PATIENT CARE. PATIENT IS ALERT AND ORIENTED. RESPIRATIONS ARE EVEN AND UNLABORED. PATIENT SITTING ON EDGE OF BED, WRITING CHECKS. DENIES NEEDS AT THIS TIME. NO S/S OF DISTRESS. NO C/O PAIN. CALL LIGHT WITHIN REACH. WILL CPOC.
[2018-04-14 20:00] VITALS: BP 105/66
[2018-04-15] VITALS: BP 98/51
[2018-04-15 04:00] VITALS: BP 117/52
[2018-04-15 07:59] LABS: BASOPHILS 0.3 % (0-2); EOSINOPHILS 8.4 % (0-7); HEMATOCRIT 36.5 % (36.0-48.0); HEMOGLOBIN 10.8 g/dL (12-16); IMMATURE GRANULOCYTES 0.2 % (0-5); LYMPHOCYTES 18.8 % (15-50); MCH 25.7 pg (26.0-34.0); MCHC 29.6 g/dL (31.0-37.0); MCV 86.9 fL (80.0-100.0); MEAN PLATELET VOLUME 9.4 fL (7.4-10.4); MONOCYTES 12.8 % (2-11); NEUTROPHILS 59.5 % (40-80); PLATELET COUNT 266 10x3/uL (130-400); RDW 16.4 % (11.5-14.5); WBC 6.3 10x3/uL (4.8-10.8)
[2018-04-15 08:18] LABS: CALCIUM 9.8 mg/dL (8.5-10.1); CARBON DIOXIDE 22.2 mmol/L (21.0-32.0); POTASSIUM - SERUM 5.2 mmol/L (3.5-5.1); URIC ACID 6.3 mg/dL (2.6-7.2)
[2018-04-15 09:13] VITALS: BP 113/47
[2018-04-15 17:39] VITALS: BP 118/45
--- NOTE | 2018-04-15 19:33 | NUR ---
PT IN BED. DENIES NEEDS AT THIS TIME.
[2018-04-15 20:00] VITALS: BP 141/39
[2018-04-16] VITALS (7 sets, daily range): BP systolic 127–140; BP diastolic 37–57
--- NOTE | 2018-04-16 04:22 | NUR ---
RESTING IN BED WITH EYES CLOSED. NO S/S OF DISTRESS OBSERVED. WILL CONT. POC.
[2018-04-16 05:40] LABS: BASOPHILS 0.2 % (0-2); EOSINOPHILS 7.5 % (0-7); HEMATOCRIT 37.2 % (36.0-48.0); IMMATURE GRANULOCYTES 0.2 % (0-5); LYMPHOCYTES 13.4 % (15-50); MCH 25.7 pg (26.0-34.0); MCHC 29.6 g/dL (31.0-37.0); MCV 86.9 fL (80.0-100.0); MEAN PLATELET VOLUME 9.4 fL (7.4-10.4); MONOCYTES 9.4 % (2-11); NEUTROPHILS 69.3 % (40-80); PLATELET COUNT 246 10x3/uL (130-400); RBC 4.28 10x6/uL (4.00-5.40); RDW 16.2 % (11.5-14.5)
[2018-04-16 05:52] LABS: ANION GAP 16.2 mmol/L (8-16); CALCIUM 9.8 mg/dL (8.5-10.1); CARBON DIOXIDE 25.3 mmol/L (21.0-32.0); PHOSPHOROUS 6.5 mg/dL (2.5-4.9); POTASSIUM - SERUM 4.5 mmol/L (3.5-5.1); URIC ACID 2.8 mg/dL (2.6-7.2)
[2018-04-16 05:55] LABS: CREATININE - SERUM 7.7 mg/dL (0.6-1.3)
--- NOTE | 2018-04-16 08:30 | NUR ---
PATIENT AWAKE , ALERT AND ORIENTED X 3. PATIENT REFUESE HEPARIN AND RENEGAL ORDERED. PATIENT STATES" I DONT WANT THAT SHIT." NOTED REFUSAL IN APR. WILL CONTINUE TO MONITOR.
[2018-04-16] MEDS ORDERED: RENAGEL800 MG PO (11:37)
[2018-04-16] MEDS ORDERED: HYDROCODON-ACE1 EA10 PO (11:38)
[2018-04-16] MEDS ORDERED: ULORIC40 MG PO ×2 (11:45→11:46)
[2018-04-16] MEDS ORDERED: COLCRYS0.6 MG PO ×2 (11:45→11:46)
--- NOTE | 2018-04-16 13:40 | NUR ---
SPOKE TO TO NOTIFY HIM THAT PATIENT IS BEING DISCHARGED PER THE [facility]NAL GROUP TODAY AND HE STATED THAT WAS FINE. SPOKE WITH MAGDY KEYES FOR TO NOTIFY OF DISCHARGE AND SHE STATED THAT WAS FINE THEY ARE NOT THE ADMITTING PHYSICIAN. THANKED ALL PROVIDERS.
--- NOTE | 2018-04-16 15:15 | NUR ---
PHONE CALL RECIEVED FROM DR NAJERA. STATES THAT PATIENT IS BEING DC BY NEPHROLOGY AND STATES THAT BECAUSE OF PATIENTS KNEE "THAT SHE IS NOT A DANGER TO HERSELF OR OTHERS TO BE DISMISSED TO HOME FOR SELF CARE ." HE FURTHER STATES THAT HE IS CONCERNED ABOUT HER IMMOBILITY AND RT KNEE STATUS AND PATIENT HAVING SOMEONE AT HOME TO HELP HER." THIS NURSE ANSWERED THAT I WILL CONFIRM HER MOBILITY AND HELP AT HOME. UPON ENTERING PATIENTS ROOM, HER MOTHER AND FATHER ARE PRESENT TO TRANSPORT HER HOME. PATIENT IS ON BEDSIDE COMMODE. INFORMED PATIENT ABOUT DR PERKINS CONCERNS AND ASKED SPECIFICALLY IF PATIENT IS ABLE TO AMUBULATE AT HOME SAFELY AND HAVE ASSISTANCE BY FAMILY MEMBERS. PATIENTS STATES " WHY HELL NO THATS WHY IM HAVING KNEE SURGERY AND I CANT WALK." CONTACTED MAGDY LUNDY WITH NEPHROLOGY WHO STATES THAT SHE HAD SPOKEN WITH DR NAJERA EARLIER AND THAT HE WAS OK WITH DC AND TOTLA KNEE REPLACEMENT SURGERY WAS SCHEDULED. NIKKIE INSTRUCTED ME TO NOT DC PATIENT. INFORMED PATIENT AND CHARGE NURSE. POONAM DID CALL BACK STATING DR HOFF CONCERN ABOUT KEEPING PATIENT INPATIENT UNDER NEHROLOGY WHEN PATIENT IS STABLE FROM NEPHROLOGY STANDPOINT. NO NEW ORDERS RECIEVED. WILL CONTINUE TO MONITOR .
--- NOTE | 2018-04-16 15:46 | NUR ---
REPORT RECEIVED FROM SAGGER FILLER. PATIENT LAYING IN BED ON BACK WITH EYES CLOSED AND BREATHING EVENLY. WILL CONTINUE WITH PLAN OF CARE. SR UP X 2 BED IN LOW POSITION AND CALL LIGHT IN REACH.
--- NOTE | 2018-04-16 17:30 | NUR ---
PAGTIENT RESTING ON BACK IN ROOM. ATTEMPTED TO GIVE PATIENT HEPARIN AND RENEGAL ORDERED AND PATIENT REFUSED AGAIN. WILL CONTINUE TO MONITOR.
--- NOTE | 2018-04-16 19:24 | NUR ---
PT IN BED. REQUESTS LAXATIVE TO HELP HER "SHIT" NO LAXATIVE ORDERED WILL PAGE .
--- NOTE | 2018-04-17 01:34 | NUR ---
RESTING IN BED WITH NO DISTRESS. MONITOR AND CPOC. CALL LIGHT IN REACH.
[2018-04-17 03:56] VITALS: BP 140/47
[2018-04-17 05:34] LABS: BASOPHILS 0.6 % (0-2); EOSINOPHILS 11.7 % (0-7); HEMATOCRIT 38.1 % (36.0-48.0); HEMOGLOBIN 11.4 g/dL (12-16); IMMATURE GRANULOCYTES 0.4 % (0-5); LYMPHOCYTES 18.5 % (15-50); MCH 25.7 pg (26.0-34.0); MCHC 29.9 g/dL (31.0-37.0); MEAN PLATELET VOLUME 9.2 fL (7.4-10.4); MONOCYTES 11.3 % (2-11); NEUTROPHILS 57.5 % (40-80); PLATELET COUNT 259 10x3/uL (130-400); RBC 4.43 10x6/uL (4.00-5.40); RDW 15.8 % (11.5-14.5); WBC 5.3 10x3/uL (4.8-10.8)
[2018-04-17 05:51] LABS: ANION GAP 20.6 mmol/L (8-16); CALCIUM 9.8 mg/dL (8.5-10.1); CARBON DIOXIDE 21.1 mmol/L (21.0-32.0); PHOSPHOROUS 6.9 mg/dL (2.5-4.9); POTASSIUM - SERUM 4.7 mmol/L (3.5-5.1)
--- NOTE | 2018-04-17 07:40 | NUR ---
ASSESSMENT DONE.DENIES NEEDS.
[2018-04-17 08:28] VITALS: BP 147/43
--- NOTE | 2018-04-17 09:46 | NUR ---
RESTS IN BED WITH EYES CLOSED. CALL LIGHT IN REACH. WILL MONITOR NEEDS.
[2018-04-17 12:10] VITALS: BP 136/51
[2018-04-17 16:55] VITALS: BP 133/49
--- NOTE | 2018-04-17 17:38 | NUR ---
WITHOUT CHANGES OR DISTRESS NOTED AT THIS TIME. DENIES NEEDS.
[2018-04-17 19:50] VITALS: BP 153/39
[2018-04-17 23:52] VITALS: BP 154/39
[2018-04-18 03:45] VITALS: BP 142/43
--- NOTE | 2018-04-18 05:05 | NUR ---
RESTING WITH NO DISTRESS. RESPS EVEN/NONLABORED. MONITOR AND CPOC.
[2018-04-18 06:36] LABS: BASOPHILS 0.6 % (0-2); EOSINOPHILS 11.6 % (0-7); HEMATOCRIT 39.5 % (36.0-48.0); HEMOGLOBIN 11.9 g/dL (12-16); IMMATURE GRANULOCYTES 0.2 % (0-5); LYMPHOCYTES 22.6 % (15-50); MCH 25.8 pg (26.0-34.0); MCHC 30.1 g/dL (31.0-37.0); MCV 85.5 fL (80.0-100.0); MEAN PLATELET VOLUME 9.4 fL (7.4-10.4); MONOCYTES 11.8 % (2-11); NEUTROPHILS 53.2 % (40-80); PLATELET COUNT 257 10x3/uL (130-400); RBC 4.62 10x6/uL (4.00-5.40); WBC 5.2 10x3/uL (4.8-10.8)
[2018-04-18 06:49] LABS: ANION GAP 19.6 mmol/L (8-16); CALCIUM 9.8 mg/dL (8.5-10.1); CREATININE - SERUM 11.7 mg/dL (0.6-1.3); PHOSPHOROUS 7.3 mg/dL (2.5-4.9); POTASSIUM - SERUM 4.6 mmol/L (3.5-5.1)
[2018-04-18 08:44] VITALS: BP 132/68
--- NOTE | 2018-04-18 09:06 | NUR ---
PT REFUSING TO TAKE AM MEDS. PT TAKEN TO DIALYSIS VIA BED.
--- NOTE | 2018-04-18 13:00 | NUR ---
DIALYSIS STATES THEY GOT OFF 2L.
--- NOTE | 2018-04-18 13:19 | NUR ---
PT RETURNED FROM FEATHER CURLING MACHINE OPERATOR VIA BED. VISITOR AT BEDSIDE.
--- NOTE | 2018-04-18 14:00 | NUR ---
TIFFANY VASCULAR ACCESS NURSE HERE TO START IV.
--- NOTE | 2018-04-18 14:13 | NUR ---
PT X2 PERSON ASSIST TO BSC AND BACK TO BED. PT HAD A VERY SMALL BM IN BSC.
--- NOTE | 2018-04-18 14:28 | NUR ---
LEFT SHOULDER/CHEST 22G IV STARTED BY VASCULAR ACCESS NURSE. IV IS SL.
--- NOTE | 2018-04-18 14:49 | NUR ---
PT'S RT TKA CANCELED UNTIL WEDNESDAY.
--- NOTE | 2018-04-18 15:31 | NUR ---
SPOKE WITH ROSA CURRAN ABOUT PT'S HD DAYS AT HOME SHE IS T,, BUT SHE WENT TODAY AND THEY HAVE HER SINCE 04/13 M,W,F AND TOMORROW STARTS ,,. SHE STATES PT WILL BE ON ,, SCHEDULE FROM NOW ON AND SHE WILL NOT HAVE TO GO OR WEDNESDAY BUT SHE WILL GO WEDNESDAY. I STATED TO HER PT WILL JUST MISS TWO DAYS AND SHE STATED YES SHE WILL JUST GO WEDNESDAY AND WEDNESDAY THIS WEEK. CALLED AND SPOKE WITH CLARIBEL IN DIALYSIS AND STATED THIS TO HIM AND HE VERBALZIED UNDERSTANDING.
--- NOTE | 2018-04-18 15:59 | NUR ---
STATED TO PT I SPOKE WITH [facility] AND THEY STATED SHE WON'T HAVE HD AGAIN TILL WEDNESDAY. PT VERBALIZED UNDERSTANDING.
[2018-04-18 16:01] VITALS: BP 125/71
--- NOTE | 2018-04-18 16:47 | NUR ---
PT WANTS STOOL SOFTNER. SPOKE WITH ROSA CURRAN SHE ORDERED DOCUSATE 100MG BID.
[2018-04-18 20:00] VITALS: BP 121/71
--- NOTE | 2018-04-18 20:50 | NUR ---
ADMIN SCHED PO MEDS. REFUSED HEPARIN. ASSISTED TO BSC AND BACK TO BED. NO OTHER NEEDS VOICED.
[2018-04-19] VITALS: BP 115/60
[2018-04-19 04:00] VITALS: BP 126/58
--- NOTE | 2018-04-19 04:37 | NUR ---
LABORER STORES PRESENT IN ROOM ASSISTING TO BSC. NO OTHER NEEDS VOICED.
[2018-04-19 05:34] LABS: BASOPHILS 0.5 % (0-2); HEMATOCRIT 40.9 % (36.0-48.0); HEMOGLOBIN 12.3 g/dL (12-16); IMMATURE GRANULOCYTES 0.2 % (0-5); LYMPHOCYTES 20.1 % (15-50); MCH 25.7 pg (26.0-34.0); MCHC 30.1 g/dL (31.0-37.0); MCV 85.6 fL (80.0-100.0); MEAN PLATELET VOLUME 9.3 fL (7.4-10.4); MONOCYTES 8.4 % (2-11); NEUTROPHILS 63.8 % (40-80); PLATELET COUNT 255 10x3/uL (130-400); RBC 4.78 10x6/uL (4.00-5.40); RDW 15.8 % (11.5-14.5); WBC 5.9 10x3/uL (4.8-10.8)
[2018-04-19 06:01] LABS: ANION GAP 20.5 mmol/L (8-16); CARBON DIOXIDE 21.7 mmol/L (21.0-32.0); PHOSPHOROUS 5.6 mg/dL (2.5-4.9); POTASSIUM - SERUM 4.2 mmol/L (3.5-5.1)
[2018-04-19 09:47] VITALS: BP 119/52
--- NOTE | 2018-04-19 15:14 | NUR ---
Pt is eating 0-25% of meals Weight 184lb Offered Nepro and pt denied Pt reports she is not eating much because she does not like the food Discussed food preferences-will send a fried egg tomorrow for breakfast Encouraged good po intake and encouraged pt to eat 50% of meals Rec: May want to consider a liberalized diet to help pt reach nutrient needs RD following
--- NOTE | 2018-04-19 15:42 | NUR ---
PATIENT REFUSED TO USE BEDSIDE COMMODE STATING THAT IT ISNT WIDE ENOUGH. I ASKED IF THE PATIENT WOULD LIKE TO USE A BEDPAN INSTEAD AND THE PATIENT STATED THAT SHE CANT USE THAT EITHER. ASKED THE PATIENT IF A WALKER WOULD BE BENEFICIAL TO WALK TO THE BATHROOM AND SHE SAID YES. CALLED THERAPY TO GET A WALKER AND THEY BROUGHT ONE TO THE ROOM. OFFERED HELP TO THE TOILET AND THE PATIENT STOOD UP BENT OVER AND POOPED ON THE BED. SHE THEN WALKED TO THE BATHROOM TO SIT FOR A WHILE. LINEN CHANGED AND PATIENT ASSISSTED BACK TO THE BED.
--- NOTE | 2018-04-19 15:49 | NUR ---
0945 PATIENT REQUESTS ASSISSTANCE BACK TO BED FROM THE BEDSIDE COMMODE. ASSISSTED PATIENT BACK TO BED AND THE PATIENT STATED THAT SHE HAS A POOP PLUG AND REQUESTED THAT I DIG IT OUT. I STATED THAT I CANNOT DO THAT AT THIS TIME BUT I WILL CALL THE DOCTOR FOR SOME NEW ORDERS. THE PATIENT THEN STATED THAT SOMETIMES SHE FEELS THOUGH SHE WONT BE ABLE TO MAKE IT TO THE BATHROOM. I STATED THAT IF SHE HAPPENS TO HAVE AN ACCIDENT IN THE BE I WILL CLEAN IT UP AND TO NOT FEEL BAD IT ABOUT IT BECAUSE THINGS LIKE THIS HAPPEN WHEN YOU ARE INJURED IN THE HOSPITAL. 1030 PATIENT CALLED NURSE INTO THE ROOM TO BE CLEANED UP. EDUCATED PATIENT TO USE THE CALL LIGHT IF SHE NEEDS TO USE TO RESTROOM. CLEANED THE PATIENT AND APPLIED NEW BED LINENS. 1117 PATIENT CALLED NURSE INTO THE ROOM TO GET CLEANED UP AGAIN. EDUCATED THE PATIENT AGAIN TO USE THE CALL LIGHT SYSTEM IF SHE NEEDS TO USE THE BEDSIDE COMMODE. 1315 PATIENT CALLED NURSE INTO ROOM TO BE CLEANED UP AGAIN STATING THAT I TOLD HER IT WAS OK TO POOP IN THE BED. I EDUCATED THE PATIENT THAT SHE SHOULD STILL TRY TO CALL AND USE TO BATHROOM OR THE BEDSIDE COMMODE AND SHE STATED ITS EASIER TO POOP IN THE BED.
--- NOTE | 2018-04-19 17:29 | NUR ---
CLEANED THE PATIENT UP AND APPLIED NEW BED SHEETS. WITHIN 2 MINUTES THE PATIENT CALLED AND STATED THAT SHE MESSED THE BED AGAIN. EDUCATED THE PATIENT OF THE IMPORTANCE OF USING THE CALL LIGHT SYSTEM SO THAT SHE CAN GET UP AND USE THE BATHROOM OR THE BEDSIDE COMMODE AND THE PATIENT STATED SHE DOESNT WANT TO GET UP
[2018-04-19 20:00] VITALS: BP 139/70
[2018-04-20] VITALS: BP 140/50
--- NOTE | 2018-04-20 03:10 | NUR ---
RN NOTE: PATIENT RESTING COMFORTABLY IN BED. RESPIRATIONS ARE EVEN AND UNLABORED. NO S/S OF DISTRESS. CALL LIGHT WITHIN REACH. WILL CPOC.
[2018-04-20 04:00] VITALS: BP 118/81
[2018-04-20 06:25] LABS: BASOPHILS 0.3 % (0-2); EOSINOPHILS 8.5 % (0-7); HEMOGLOBIN 13.2 g/dL (12-16); IMMATURE GRANULOCYTES 0.3 % (0-5); LYMPHOCYTES 15.4 % (15-50); MCH 26.1 pg (26.0-34.0); MCHC 30.7 g/dL (31.0-37.0); MCV 85.1 fL (80.0-100.0); MEAN PLATELET VOLUME 9.4 fL (7.4-10.4); MONOCYTES 9.6 % (2-11); NEUTROPHILS 65.9 % (40-80); PLATELET COUNT 234 10x3/uL (130-400); RBC 5.05 10x6/uL (4.00-5.40); RDW 15.9 % (11.5-14.5); WBC 6.4 10x3/uL (4.8-10.8)
--- NOTE | 2018-04-20 06:36 | NUR ---
AQUATIC FACILITY MANAGER AT BED SIDE, HIBICLENSE BATH AND LINEN CHANGE COMPLETE.
[2018-04-20 06:43] LABS: ANION GAP 21.4 mmol/L (8-16); CALCIUM 9.6 mg/dL (8.5-10.1); CARBON DIOXIDE 23.1 mmol/L (21.0-32.0); POTASSIUM - SERUM 4.5 mmol/L (3.5-5.1)
[2018-04-20 06:46] LABS: CREATININE - SERUM 10.3 mg/dL (0.6-1.3)
[2018-04-20 08:07] VITALS: BP 146/76
--- NOTE | 2018-04-20 12:04 | NUR ---
REPORT CALLED TO YAIR
--- NOTE | 2018-04-20 14:33 | NUR ---
1420 - RICKY NAIR CRNA CONSULTED FOR SLIGHT TACYCARDIA WITH BP TRENDING DOWN. ADDITIONAL 200 ML NS INFUSION ORDERED AND GIVEN.
[2018-04-20 15:08] VITALS: BP 135/40
--- NOTE | 2018-04-20 20:35 | NUR ---
AWAKE,ALERT.NO COMPLAITNS VOICED AT PRESENT. IV INFSUING TO LEFT SHOULDER WITHOUT REDNESS OR EDEMA NOTED. DEEDEE WRAP DRESSING INTACT TO RIGHT KNEE. PROVENA PATENT. CPM IN PROGRESS AT THIS TIME. CL IN REACH
[2018-04-20 21:36] VITALS: BP 136/59
--- NOTE | 2018-04-21 01:34 | NUR ---
PT LYING IN BED, NO SIGNS OF DISTRESS. AGREE W/ ACUTE CARE CLINICAL NURSE SPECIALIST ASSESSMENT. CL IN REACH
[2018-04-21 05:44] VITALS: BP 171/70
--- NOTE | 2018-04-21 07:45 | NUR ---
ASSESSMENT COMPLETE. IV TO LEFT SHOULDER PATENT. R HEMOSPLIT. CPM IN USE TO RIGHT KNEE. DRESSING AND PREVENA IN USE TO RIGHT KNEE. DENIES ANY NEEDS AT THIS TIME.
[2018-04-21 09:14] VITALS: BP 183/72
--- NOTE | 2018-04-21 09:25 | NUR ---
OFF FLOOR TO DIALYSIS VIA BED.
[2018-04-21 11:04] LABS: BASOPHILS 0.1 % (0-2); EOSINOPHILS 0.1 % (0-7); HEMOGLOBIN 10.9 g/dL (12-16); IMMATURE GRANULOCYTES 0.2 % (0-5); MCHC 31.1 g/dL (31.0-37.0); MCV 83.5 fL (80.0-100.0); MEAN PLATELET VOLUME 9.7 fL (7.4-10.4); MONOCYTES 6.4 % (2-11); NEUTROPHILS 90.2 % (40-80); PLATELET COUNT 255 10x3/uL (130-400); RBC 4.19 10x6/uL (4.00-5.40); RDW 15.8 % (11.5-14.5)
[2018-04-21 11:15] LABS: ANION GAP 20.8 mmol/L (8-16); CALCIUM 8.9 mg/dL (8.5-10.1); CARBON DIOXIDE 21.9 mmol/L (21.0-32.0); CREATININE - SERUM 12.1 mg/dL (0.6-1.3); POTASSIUM - SERUM 4.7 mmol/L (3.5-5.1); VANCOMYCIN - RANDOM 7.4 ug/mL (10.0-20.0); WBC 11.1 10x3/uL (4.8-10.8)
--- NOTE | 2018-04-21 12:42 | NUR ---
RETURNED TO ROOM FROM DIALYSIS VIA BED.
--- NOTE | 2018-04-21 13:23 | NUR ---
DR PEREZ BY TO SEE PATIENT. PATIENT BELIEVES SHE WAS IN A DIFFERENT ROOM BEFORE GOING TO DIALYSIS. TRIED TO REASSURE PATIENT THAT SHE IS IN THE SAME ROOM. OXYCODONE GIVEN FOR PAIN.
--- NOTE | 2018-04-21 15:15 | NUR ---
REDNESS NOTED TO FACE,CHEST, AND LEGS. DENIES ANY ITCHING. VANCOMYICIN INFUSION STOPPED. NOTIFIED JOI BISHOP APN.
[2018-04-21 16:23] VITALS: BP 109/68
[2018-04-21 21:11] VITALS: BP 96/36
[2018-04-22 00:46] VITALS: BP 98/49
--- NOTE | 2018-04-22 04:47 | NUR ---
ASSESSED AT THE BEGINNING OF THE SHIFT. PT SEEMED TO BE ALERT AND ORIENTED AT THAT TIME BUT WAS SLEEPY. AT HS MED TIME SHE REFUSED ALL HER MEDS EXCEPT FOR HER PAIN MEDS. LATER DURING THE NIGHT SHE APPEARED TO BE HAVING DREAMS TALKING TO HER FATHER AND CRYING OUT FOR HER FATHER TO STOP. WHEN AWAKENED SHE WENT RIGHT BACK TO SLEEP TALKING TO HER DAD AGAIN. LATER SHE WAS CRYING OUT COMPLAINING OF SOMETHING BOTHERING HER BACK BUT IN TRYING TO FIGURE OUT WHAT SHE WAS COMPLAINING ABOUT SHE ANSWERED ALL QUESTIONS WITH NO AND STATED SHE WAS UNABLE TO TELL US. WHEN LEFT ALONE SHE WENT BACK TO SLEEP WITH NO MORE COMPLAINTS. THIS MORNING SHE WAS AWAKENED BY LAB FOR TESTS BUT SHE REFUSED TO HAVE HER BLOOD DRAWN AND QUICKLY WENT BACK TO SLEEP. SHE DOSENT SEEM TO BE IN ANY DISTRESS AT ALL OTHER TIMES. WILL CONTINUE TO MONITOR.
[2018-04-22 05:42] VITALS: BP 144/45
--- NOTE | 2018-04-22 05:43 | NUR ---
PT HAS CONTINUED TO ACT STRANGE THIS MORNING. SHE IS ASKING FOR WATER AND WHEN OFFERED ACTS IF SHE DOSENT KNOW IT IS THERE. SHE IS CRYING OUT BUT NOT MAKING ANY SENSE. WITH NOTIFY THIS AM.
--- NOTE | 2018-04-22 06:34 | NUR ---
MD CALLED AND ORDERS FOR CT SCAN OBTAINED AND TO GIVEN HEPARIN THAT PT HAD REFUSED LAST NIGHT
--- NOTE | 2018-04-22 07:43 | NUR ---
INCREASED CONFUSED, DISORIENTED X4, WHEN TRYING TO REORIENT PT COULD NOT ANSWER QUESTIONED, CONTINUE TO STATE, "DADDY, LEAVE IT ALONE." eSCORTED OFF UNIT VIA BED WITH CT, FOR CT OF HEAD DUE TO INCREASED MENTAL STATUS CHANGE.
[2018-04-22 09:13] VITALS: BP 131/72
[2018-04-22 09:34] LABS: BASOPHILS 0.1 % (0-2); EOSINOPHILS 2.8 % (0-7); HEMATOCRIT 39.6 % (36.0-48.0); IMMATURE GRANULOCYTES 0.5 % (0-5); LYMPHOCYTES 1.8 % (15-50); MCH 26.1 pg (26.0-34.0); MCHC 30.3 g/dL (31.0-37.0); NEUTROPHILS 92.8 % (40-80); PLATELET COUNT 214 10x3/uL (130-400); RBC 4.59 10x6/uL (4.00-5.40); RDW 16.6 % (11.5-14.5)
[2018-04-22 09:50] LABS: CALCIUM 9.1 mg/dL (8.5-10.1); CREATININE - SERUM 10.7 mg/dL (0.6-1.3)
[2018-04-22 09:53] LABS: ANION GAP 28.1 mmol/L (8-16); CARBON DIOXIDE 15.4 mmol/L (21.0-32.0); POTASSIUM - SERUM 5.5 mmol/L (3.5-5.1)
[2018-04-22 10:09] LABS: MCV 86.3 fL (80.0-100.0); WBC 15.4 10x3/uL (4.8-10.8)
--- NOTE | 2018-04-22 10:13 | NUR ---
ASSESSED PT, SHALLOW BREATHING, REGULAR RHYTM AT 100, CONTINUES TO CALL OUT FOR "DADKIMBERLI". KEEPS EYES CLOSED, ANSWERED TO NAME BUT ANSWER INAPPROPRIATELY TO OTHER QUESTIONS, RECIEVED DIALYSIS YESTERDAY WHICH IS WHEN THE INCREASE IN CONFUSION BEGAN AFTER RETURNED BACK TO UNIT, REDNESS AND SWELLING TO LOWER RIGHT LEG, GRIMANCING WITH LIGHT TOUCH TO BOTH FEET, ABD DISTENDED, NO URINE OUTPUT SO FAR THIS SHIFT EVEN WITH REQUEST TO URINATE AND PLACING ON BEDPAN. STAT MRI HAS BEEN ORDERED BUT UNLESS PT OR POA IS ABLE TO ANSWER PRE SCREENING QUESTIONS MRI IS UNABLE TO BE PERFORMED AT THIS TIME. BED LOWERED AND LOCKED, CALL LIGHT WITHIN REACH. CPOC
[2018-04-22 12:00] VITALS: BP 103/76
--- NOTE | 2018-04-22 12:36 | NUR ---
PT REFUSED TO TAKE MEDICATION. WHEN EXPLAINING TO HER WHAT SHE WAS RECIEVING SHE WOULDN'T EVEN OPEN EYES. DID NOT ADMINISTER DUE TO SAFTEY REASONS D/T RISK OF CHOKING. WILL CLOSE EYES AND REST FOR SEVERAL MINUTES, EASILY AROUSED BUT THEN WILL CONTINUE TO CALL OUT FOR "DADDY". BED LOWERED AND LOCKED, CALL LIGHT WITHIN REACH. CPOC
--- NOTE | 2018-04-22 14:26 | NUR ---
SPOKE WITH CHRIS REGARDING PATIENT HAVING A LEFT AND RIGHT RESERVE ARM AND NEEDED BLOOD CULTURES, HE GAVE A VERBAL OK TO USE THE ARMS. PT CONTINUES TO CALL OUT, BED LOWERED AND LOCKED. CALL LIGHT WITHIN REACH. CPOC
[2018-04-22 14:56] LABS: HEMATOCRIT 39.5 % (36.0-48.0); HEMOGLOBIN 12.4 g/dL (12-16); MCH 27.3 pg (26.0-34.0); MCHC 31.4 g/dL (31.0-37.0); MCV 86.8 fL (80.0-100.0); MEAN PLATELET VOLUME 9.8 fL (7.4-10.4); RBC 4.55 10x6/uL (4.00-5.40); RDW 16.9 % (11.5-14.5); WBC 14.8 10x3/uL (4.8-10.8)
[2018-04-22 15:12] LABS: APTT 20.4 SECONDS (22.8-39.4); INR 1.17 (0.85-1.17); PROTIME 14.4 SECONDS (11.6-15.0)
--- NOTE | 2018-04-22 15:49 | NUR ---
OBTAINED URINE SPECIMEN VIA IN AND OUT CATH. TOLERATED PROCEDURE WELL. IV IN LEFT SHOULDER INFILTRATED, VERBAL CONSENT RECIEVED VIA TELEPHONE FROM PT MOTHER, GUILHERME DORMAN, BED LOWERED AND LOCKED. CALL LIGHT WITHIN REACH. CPOC
[2018-04-22 16:00] VITALS: BP 109/35
[2018-04-22 17:41] LABS: APPEARANCE CLEAR (CLEAR); COLOR YELLOW (YELLOW)
[2018-04-22 17:47] LABS: NITRITE NEGATIVE (NEGATIVE); PROTEIN 1+ mg/dL (NEGATIVE)
[2018-04-22 17:48] LABS: BILIRUBIN NEGATIVE (NEGATIVE); GLUCOSE NEGATIVE (NEGATIVE); KETONE NEGATIVE (NEGATIVE); UROBILINOGEN NORMAL (NORMAL)
[2018-04-22 17:49] LABS: BACTERIA FEW /hpf (NONE SEEN); EPITHELIAL CELLS 0-5 /hpf (0-5); RED CELLS - URINE 0-5 /hpf (0-5); WHITE CELLS - URINE 0-5 /hpf (0-5)
--- NOTE | 2018-04-22 17:51 | NUR ---
CONTINUES TO CALL OUT, DRESSING IN RIGHT GROIN, CLEAN, DRY, AND INTAKE. WHEN ASKING PT QUESTIONS SHE WILL STOP AND ANSWER AND THE START RIGHT BACK CALLING FOR "DADDY AND MOMMY." ATTEMPTED TO APPLY 02 VIA NC D/T O2 DROPPING WHEN SLEEPING BUT REFUSES AND TAKES NC OFF OF NOSE, PREVENA ATTACHED TO RIGHT KNEE, IN OPERATION. WILL CONTINUE TO MONITOR. BED LOWERED AND LOCKED, CALL LIGHT WITHIN REACH. CPOC
--- NOTE | 2018-04-22 18:29 | NUR ---
ABLE TO GET PT TO TAKE PAIN MEDICATION IN THE HOPES TO RELIEVE PAIN. SHE CHEWED THEM INSTEAD OF SWALLOWED. FAMILY MEMBER PRESENT, BED LOWERED AND LOCKED CALL LIGHT WITHIN REACH. CPOC
[2018-04-22 22:03] VITALS: BP 126/62
[2018-04-23] VITALS (12 sets, daily range): BP systolic 95–144; BP diastolic 37–88
[2018-04-23 07:29] LABS: BASOPHILS 0.1 % (0-2); EOSINOPHILS 8.3 % (0-7); HEMATOCRIT 33.5 % (36.0-48.0); HEMOGLOBIN 10.1 g/dL (12-16); IMMATURE GRANULOCYTES 0.6 % (0-5); LYMPHOCYTES 1.8 % (15-50); MCH 25.5 pg (26.0-34.0); MCHC 30.1 g/dL (31.0-37.0); MEAN PLATELET VOLUME 10.2 fL (7.4-10.4); MONOCYTES 1.7 % (2-11); NEUTROPHILS 87.5 % (40-80); PLATELET COUNT 199 10x3/uL (130-400); RBC 3.96 10x6/uL (4.00-5.40); RDW 16.7 % (11.5-14.5); WBC 17.4 10x3/uL (4.8-10.8)
[2018-04-23 07:32] LABS: MCV 84.6 fL (80.0-100.0)
[2018-04-23 07:42] LABS: INR 1.2 (0.85-1.17); PROTIME 14.7 SECONDS (11.6-15.0)
[2018-04-23 07:57] LABS: ALBUMIN 2.4 g/dL (3.4-5.0); ANION GAP 20.3 mmol/L (8-16); BILIRUBIN - TOTAL 0.33 mg/dL (0.2-1.3); CALCIUM 8.9 mg/dL (8.5-10.1); CARBON DIOXIDE 18.6 mmol/L (21.0-32.0); CREATININE - SERUM 12.5 mg/dL (0.6-1.3); POTASSIUM - SERUM 4.9 mmol/L (3.5-5.1)
--- NOTE | 2018-04-23 08:35 | NUR ---
AWAKE, SHALLOW BREATHING, IV IN RIGHT CHEST INFUSING HEPARIN DRIP 800 UNITS/HR PER PROTOCOL, IV IN LEFT SHOULDER INFUSING FLUIDS, 02 PRESENT AT 2LPM, EASILY AROUSED BUT WOULDNT NOT RESPOND VERBALLY, BED LOWERED AND LOCKED, CALL LIGHT WITHIN REACH. CPOC
--- NOTE | 2018-04-23 09:23 | NUR ---
HEPARIN DRIP RATE CHANGED PER PROTCOL TO 900UNIT PER HOUR, REDRAW FOR 6 HOUR APTT ORDERED, VERIFIED BY MYSELF AND MÓNICA MCCLURE, PT WILL NOT RESPOND VERBALLY, HAD BOTH HANDS CLENCHED TIGHTLY, BED LOWERED AND LOCKED, CALL LIGHT WITHIN REACH. CPOC
--- NOTE | 2018-04-23 11:10 | NUR ---
DIALYSIS CALLED REQUESTED HER FOR TREATMENT. I EXPLAINED ABOUT HER RECENT MENTAL STATUS CHANGES AND NEW DIAGNOSES OF DVT WITH CONTINUOUS HEPARIN DRIP. DIAYLSIS INFORMED ME THAT SHE NEEDS THE TREATMENT SHE ONLY GOT A PARTIAL TREATMENT THE OTHER DAY. INFORMED THEM THEY ARE ABLE TO CALL ME IF NEEDED. SPOKE WITH SON IN PERSON AND THEY ARE CONCERNED ABOUT HER RECOVERY FROM HER KNEE D/T NOT RECIEVING THEARPY. WILL CONTINUE TO MONITOR PTS PROGRESS WITH MENTAL STATUS.
--- NOTE | 2018-04-23 12:24 | NUR ---
PATIENT WAS REEVALUATED BY KELVIN ALLEN WHEN IN DIALYSIS, SHE OBSERVED SOME POSTURING, AND DUE TO ADDITIONAL CHANGE IN STATUS FROM YESTERDAY WE ORDERED A STAT CT OF HEAD AND ABD D/T INCREASED DISTENTION OF THE ABD, HEPARIN DRIP HAS BEEN STOPPED AT CURRENT TIME. SPOKE WITH GUILHERME, HER MOTHER, AND HER SON UDAY ABOUT CURRENT MEDICAL STATUS CHANGE, DIALYSIS WILL BE ATTEMPTED AFTER TEST ARE COMPLETED WITH A TRANSFER TO ICU AFTERWARD TO PROVIDE CLOSE MONITORING.
--- NOTE | 2018-04-23 14:00 | NUR ---
CALLED AND GAVE REPORT TO ICU.
--- NOTE | 2018-04-23 15:03 | NUR ---
RECEIVED FROM MED SURG WITH ALTERED MENTAL STATUS. PATIENT EYES ARE OPEN, MOANING PUPILS SLUGGISH. NOT OBEY COMMANDS NO BLINK, NO EYE CONTACT WHEN SPOKEN TOO. RIGHT SUBCLAVIAN BEENA SPLIT DRESSING DRY AND INTACT. IF RIGHT BREAST WITH 22 GAUGE SALINE LOCKED. LEFT SHOULDER 22 GAUGE SALINE LOCKED. RED AREAS NOTED IN COCCYX AREA NO SKIN BREAKDOWN NOTED. STIFF TO TURN. MONITOR SINUS TACH.
--- NOTE | 2018-04-23 16:00 | NUR ---
HEAVENLY PRIMARY MD TIMBER SELECTOR. DR. DAMON ORDERS RECEIVED TO CONTINUE HEAPRIN PER PROTOCAL.
--- NOTE | 2018-04-23 17:00 | NUR ---
DR. PATEL HERE TALKED WITH SONS. SON STATES HIS MOTHER DID ASK WHERE SHE WAS. NURSE HAS NOT HEARD PATIENT SPEAK A WORD. ONLY MOANS "OH OH OH" DOES NO MAKE EYE CONTACT. DOES OBEY ANY COMMANDS. ORAL CARE DONE. WOUND VAC RIGHT KNEE WITHOUT DRAINAGE. SPONGE CONPRESSED. SON STATES PATIENT WAS LIKE THIS YESTERDAY.
--- NOTE | 2018-04-23 18:00 | NUR ---
REPOSITIONED ON RIGHT SIDE. HEELS ELEVATED ON PILLOW. PATIENT VERY STIFF. STIFFENS ARMS DOWN WITH HANDS WHEN TURNED. STILL WILL NOT SPEAK OR OBEY COMMANDS. JUST MOANS. SONS LEFT PHONE NUMBERS.
--- NOTE | 2018-04-23 19:00 | NUR ---
RECEIVED PATIENT CARE SHIFT ASSESSMENT COMPLETED PT EXHIBITS FACIAL GRIMACING, MOANING, UNABLE TO FOLLOW COMMANDS, EYES OPEN, PUPILS ARE SLUGGISH. PATIENT EXTREMITIES ARE STIFF, NO MOVEMENT. SKIN FLUSHED AND HOT TO TOUCH, AFEBRILE AT THIS TIME. SINUS TACH AND HYPOTENSION NOTED AT THIS TIME. CPOC
--- NOTE | 2018-04-23 20:25 | NUR ---
PAGED DR PATEL REGARDING PAIN AND BP
--- NOTE | 2018-04-23 20:32 | NUR ---
DR PATEL CALLED NEW ORDERS RECEIVED
--- NOTE | 2018-04-23 20:45 | NUR ---
SON AT BEDSIDE SECURITY CALL IN CODE ESTABLISHED - ENTERED INTO ADMIN DATA. ALL QUESTIONS ANSWERED. CPOC
--- NOTE | 2018-04-23 21:08 | NUR ---
SYSTOLIC IN 90'S AND MAP OVER 60 AT THIS TIME, NOT STARTING LEVOPHED DRIP AT THIS TIME, WILL CONTINUE TO MONITOR
--- NOTE | 2018-04-23 23:10 | NUR ---
REASSESSMENT COMPLETED, PATIENT HAS EYES OPEN, MOANING AND SAYING SHRUTHI, SHRUTHI. DOES NOT FOLLOW COMMANDS, MAP >60 AT THIS TIME, LEVOPHED NOT STARTED. SEE FLOWSHEET FOR FULL ASSESSMENT CPOC
[2018-04-24] VITALS (26 sets, daily range): BP systolic 93–143; BP diastolic 31–87
--- NOTE | 2018-04-24 01:10 | NUR ---
PT MOANING, UNABLE TO FOLLOW COMMANDS VSS CPOC
--- NOTE | 2018-04-24 03:10 | NUR ---
PATIENT IS ABLE TO STATE NAME AND BIRTHDAY - STATES THE YEAR IS 1990 - DOES NOT RESPOND WHEN ASKED IF SHE KNOWS WHERE SHE IS. REASSESSMENT COMPLETED SEE FLOWSHEET
[2018-04-24 04:46] LABS: BASOPHILS 0.1 % (0-2); EOSINOPHILS 5.1 % (0-7); HEMATOCRIT 32.4 % (36.0-48.0); HEMOGLOBIN 9.8 g/dL (12-16); IMMATURE GRANULOCYTES 0.4 % (0-5); LYMPHOCYTES 2.3 % (15-50); MCH 25.5 pg (26.0-34.0); MCHC 30.2 g/dL (31.0-37.0); MCV 84.2 fL (80.0-100.0); MEAN PLATELET VOLUME 10.5 fL (7.4-10.4); MONOCYTES 2.5 % (2-11); NEUTROPHILS 89.6 % (40-80); PLATELET COUNT 179 10x3/uL (130-400); RBC 3.85 10x6/uL (4.00-5.40); RDW 16.9 % (11.5-14.5); WBC 17.1 10x3/uL (4.8-10.8)
[2018-04-24 05:05] LABS: ALBUMIN 2.2 g/dL (3.4-5.0); ANION GAP 23.8 mmol/L (8-16); BILIRUBIN - TOTAL 0.38 mg/dL (0.2-1.3); CALCIUM 9.1 mg/dL (8.5-10.1); CREATININE - SERUM 10.8 mg/dL (0.6-1.3); POTASSIUM - SERUM 4.8 mmol/L (3.5-5.1); PROTEIN - SERUM 5.8 g/dL (6.4-8.2)
--- NOTE | 2018-04-24 05:28 | NUR ---
PATIENT RESTING COMFORTABLY EVEN RISE AND FALL OF CHEST - NO APPARANT DISTRESS VSS CPOC
--- NOTE | 2018-04-24 07:00 | NUR ---
AWAKES TO VERBAL STIMULI SKIN VERY WARM AND DRY. STILL FLUSHED LOOKING. REORIENTED TO PLACE AND SITUATION. ANSWERING YES AND NO QUESTIONS. STATES HER RIGHT ARM IS HURTING. IV RIGHT BREAST BENT. NS KVO PLACED IN BLUE PORT OF HEMISPLIT FOR ABT ADMINISTRATION. HEPARIN 1100 UNITS IV IN LEFT SHOULDER. RIGHT KNEE HEMOVAC SPONGE COMPRESSED TO CONTAINER. NO DRAINAGE NOTED. MONITOR SR. HEAD OF BED ELEVATED. REPOSITIONED. EXTREMITITES NOT TIGHT, NOT STRAIGHTENING ARMS AND LEGS WHEN TURNED TODAY. HEELS BRIDGED ON PILLOW
--- NOTE | 2018-04-24 08:00 | NUR ---
REFUSED BREAKFAST. SLEEPY, BUT WILL WAKE UP AT TIMES. OBEYS SOME COMMANDS. HERE NO NEW ORDERS.
--- NOTE | 2018-04-24 09:00 | NUR ---
FAMILY HERE UPDATE GIVEN. MOTHER FATHER AND SONS HERE. PATIENT TALKING TO FAMILY. TALKING SIPS OF WATER AND EATING ICE CHIPS. PATIENT STILL COMPLAINTS OF PAIN LAMAR WHEN REPOSITIONED. NO RESP DISTRESS. PATIENT DOES LIKE TO PULL ON LINES EKG WIRES. IV LINE MOVED OUT OF HANDS REACH
--- NOTE | 2018-04-24 11:00 | NUR ---
MOTHER FEED A BITE OF MASH POTATOES NO SWALLOWING PROBLEMS. PATIENT WOULD NOT EAT ANYMORE. WILL EAT ICE CHIPS. REPOSITIONED. NO DISTRESS. HEAD OF BED ELEVATED 30. OXYGEN REPLACED AT TIMES.
--- NOTE | 2018-04-24 13:00 | NUR ---
REPOSITIONED. TOLERATES FAIR DOES COMPLAINT OF HURTING ALL OVER WHEN TURNED. RIGHT LEG NO CHANGE. HEPARIN CONTINUES AT 1100 UNITS HOUR
--- NOTE | 2018-04-24 15:00 | NUR ---
MED CRUSHED AND GIVEN IN APPLE SAUCE. PATIENT SWALLOWING WITHOUT CHOKING OR COUGHING. TOLERATED WELL. ICE CHIPS GIVEN REPOSITIONED. AWAKE AND TALKING
--- NOTE | 2018-04-24 16:00 | NUR ---
DR. MADRIGAL NOTIFIED OF CONSULT. STATES SHE WILL SEE HER TOMORROW
--- NOTE | 2018-04-24 17:00 | NUR ---
DINNER TRAY SERVED. REFUSED TO EAT. SON TRIED TO GET HER TO EAT.
--- NOTE | 2018-04-24 17:59 | NUR ---
REPOSITIONED. TALKING. RECONNECT EKG WIRES. INFORMED PATIENT AND SON OF POSSIBLILITY OF RESTRAINTS IF PATIENT DOES NOT QUIT PULLING. PATIENT VERBALIZED UNDERSTANDING
--- NOTE | 2018-04-24 19:25 | NUR ---
Received patient laying in bed with eyes open, assessment completed per flowsheet. Patient disoriented to time/situation, follows insturcitons. Eyes PERRLA @ 4mm with brisk response, sclera is clear/dry. S1/S2 noted NSR on telemetry with HR 83, rythmic and regular. Breathing is even/unlabored on room air with O2 sat 96%, lung sounds clear throughout. Abdomen is soft/round with bowel sounds hypoactive x4, non-tender. All pulses palpable with cap refill < 3 sec, skin warm/dry. Denies pain or other needs at this time, see flowsheet for details. All VSS and will continue to monitor.
--- NOTE | 2018-04-24 21:10 | NUR ---
Patient resting in bed with family at bedside, discussed current status/treatment plan with all questions answered to satisfaction. Denies pain at this time, all VSS and will continue to monitor.
--- NOTE | 2018-04-24 23:10 | NUR ---
Reassessment completed per flowsheet, no changes from previous assessment. Patient disoriented to time/situation, follows commands. S1/S2 noted NSR 73, rythmic and regular. Breathing is shallow on room air with O2 sat 95%, lung sounds clear bilateral upper and mid with diminished lower. All pulses palpable with cap refill < 3 sec, skin warm/dry. Denies pain or other needs at this time, see flowsheet for details. All VSS and will continue to monitor.
[2018-04-25] VITALS (24 sets, daily range): BP systolic 98–143; BP diastolic 36–98
--- NOTE | 2018-04-25 01:10 | NUR ---
Patient sleeping in bed with eyes closed, no s/s of distress at this time. All VSS and will continue to monitor.
--- NOTE | 2018-04-25 03:05 | NUR ---
Reassessment completed per flowsheet, no changes from previous assessment. S1/S2 noted NSR on telemetry with HR 74, rythmic and regular. Breathing is shallow on room air with O2 sat 95%, lung sounds clear bilateral upper and mid with diminished lower. All pulses palpable with cap refill < 3 sec, skin warm/dry. Denies pain or other needs at this time, see flowsheet for details. All VSS and will continue to monitor.
--- NOTE | 2018-04-25 05:15 | NUR ---
AM labs collected without difficulty, patient incontinent of bowel in bed. Liquid brown stool noted, patient cleaned with full bed bath/linen change performed. Denies pain or other needs at this time, will continue to monitor.
[2018-04-25 05:45] LABS: BASOPHILS 0.1 % (0-2); EOSINOPHILS 13.4 % (0-7); HEMATOCRIT 31.2 % (36.0-48.0); HEMOGLOBIN 9.6 g/dL (12-16); IMMATURE GRANULOCYTES 0.8 % (0-5); LYMPHOCYTES 5.7 % (15-50); MCH 25.9 pg (26.0-34.0); MCHC 30.8 g/dL (31.0-37.0); MCV 84.1 fL (80.0-100.0); MEAN PLATELET VOLUME 10.3 fL (7.4-10.4); MONOCYTES 5.9 % (2-11); NEUTROPHILS 74.1 % (40-80); PLATELET COUNT 190 10x3/uL (130-400); RBC 3.71 10x6/uL (4.00-5.40); WBC 14.6 10x3/uL (4.8-10.8)
[2018-04-25 06:08] LABS: ALBUMIN 2.1 g/dL (3.4-5.0); ANION GAP 20.5 mmol/L (8-16); BILIRUBIN - TOTAL 0.35 mg/dL (0.2-1.3); CARBON DIOXIDE 21.1 mmol/L (21.0-32.0); CREATININE - SERUM 11.9 mg/dL (0.6-1.3); POTASSIUM - SERUM 4.6 mmol/L (3.5-5.1); PROTEIN - SERUM 5.9 g/dL (6.4-8.2)
--- NOTE | 2018-04-25 07:00 | NUR ---
SHIFT ASSESSMENT COMPLETED. PT CARE ASSUMED. MONITORS ON AND WORKING, VITALS STABLE, NO SIGNS/SYMPTOMS OF PAIN OR DISCOMFORT NOTED AT THIS TIME, WILL CONTINUE TO OBSERVE.
--- NOTE | 2018-04-25 09:00 | NUR ---
PT TURNED AND REPOSITIONED FOR COMFORT, NO SIGNS/SYMPTOMS OF PAIN OR DISCOMFORT NOTED AT THIS TIME, WILL CONTINUE TO OBSERVE.
--- NOTE | 2018-04-25 09:38 | NUR ---
Nutrition follow-up: Diet: Renal with Nepro TID PO intake very poor; pt confused and refusing meals Labs reviewed +BM Wt: 190# Pt s/p knee replacement Will need nutrition support started if po intake continues to remain poor. RDN following.
--- NOTE | 2018-04-25 11:00 | NUR ---
PT TURNED AND REPOSITIONED FOR COMFORT, NO SIGNS/SYMPTOMS OF PAIN OR DISCOMFORT NOTED AT THIS TIME, SEE FLOW SHEET FOR FURTHER DETAILS. WILL CONTINUE TO OBSERVE.
--- NOTE | 2018-04-25 13:00 | NUR ---
PT TURNED AND REPOSITIONED FOR COMFORT, NO SIGNS/SYMPTOMS OF PAIN OR DISCOMFORT NOTED AT THIS TIME. FAMILY AT BEDSIDE, UPDATE PROVIDED. CALL LIGHT WITHIN REACH. WILL CONTINUE TO OBSERVE.
[2018-04-25 14:00] LABS: INR 1.28 (0.85-1.17); PROTIME 15.5 SECONDS (11.6-15.0)
[2018-04-25 14:12] LABS: APTT 125.9 SECONDS (22.8-39.4)
--- NOTE | 2018-04-25 15:00 | NUR ---
NO CHANGES, SEE FLOW SHEET FOR FURTHER DETIALS. WILL CONTINUE TO OBSERVE.
--- NOTE | 2018-04-25 19:10 | NUR ---
Received patient resting in bed with eyes closed, assessment completed per flowsheet. Patient disoriented to time/situation, follows instructions. S1/S2 noted NSR on telemetry with HR 82, rythmic and regular. Breathing is shallow on room air with O2 sat 96%, lung sounds clear bilateral upper and mid with diminished lower. Abdomen is round/soft with bowel sounds active x4, non-tender. Patient anuric, small liquid BM noted and cleaned. R leg incision with wound vac intact, no drainage noted. All pulses palpable with cap refill < 3 sec, skin warm/dry. Repositioned for comfort, see flowsheet for details. All VSS and will continue to monitor.
--- NOTE | 2018-04-25 21:10 | NUR ---
Patient family at bedside, discussed treatment plan/disease process with all questions answered to satisfaction. Bedpan provided at request, small liquid brown/green stool collected. Repositioned for comfort, no further needs at this time and will continue to monitor.
--- NOTE | 2018-04-25 23:07 | NUR ---
Reassessment completed per flowsheet, no changes from previous assessment. Patient disoriented to catrina/situation, follows commands. S1/S2 noted NSR on telemetry with HR 80, rythmic and regular. Breathing is shallow on room air with O2 sat 95%, lung sounds clear bilateral upper and mid with diminished lower. R leg incision wound vac dressing CDI, no drainage noted. All pulses palpable with cap refill < 3 sec, skin warm/dry. Repositioned for comfort, see flow sheet for details. All VSS and will continue to monitor.
[2018-04-26] VITALS (19 sets, daily range): BP systolic 94–152; BP diastolic 53–99
--- NOTE | 2018-04-26 01:00 | NUR ---
Patient sleeping with eyes closed, awakens easily with disorientation noted. Reorients with slight confusion to time/situation, follows instructions. Assisted to bedpan at request, small liquid brown/green stool noted. Repositioned for comfort, all VSS and will continue to monitor.
--- NOTE | 2018-04-26 03:10 | NUR ---
Reassessment completed per tamra, no changes from previous assessment. Patient disoriented to time/situation, follows instructions. S1/S2 noted NSR on telemetry with HR 73, rythmic and regular. Breathing is shallow on room air with O2 sat 96%, lung sounds clear bilateral upper and mid with diminished lower. R knee incision dressing CDI, wound vac attatched with no drainage noted. All pulses palpable with cap refill < 3 sec, skin warm/dry. Repositioned for comfort, see flowsheet for details. All VSS and will continue to monitor.
--- NOTE | 2018-04-26 05:00 | NUR ---
Patient sleeping in bed with eyes closed, AM labs collected without difficulty. Repositioned for comfort, no further needs and will continue to monitor.
[2018-04-26 05:06] LABS: BASOPHILS 0.6 % (0-2); EOSINOPHILS 15.1 % (0-7); HEMATOCRIT 29.5 % (36.0-48.0); HEMOGLOBIN 8.9 g/dL (12-16); IMMATURE GRANULOCYTES 1.5 % (0-5); MCH 25.4 pg (26.0-34.0); MCHC 30.2 g/dL (31.0-37.0); MEAN PLATELET VOLUME 10.3 fL (7.4-10.4); MONOCYTES 8.1 % (2-11); NEUTROPHILS 62.7 % (40-80); PLATELET COUNT 197 10x3/uL (130-400); RBC 3.51 10x6/uL (4.00-5.40); RDW 16.9 % (11.5-14.5)
[2018-04-26 05:07] LABS: WBC 10.7 10x3/uL (4.8-10.8)
[2018-04-26 05:32] LABS: INR 1.18 (0.85-1.17); PROTIME 14.5 SECONDS (11.6-15.0)
[2018-04-26 05:46] LABS: ALBUMIN 2.1 g/dL (3.4-5.0); BILIRUBIN - DIRECT 0.11 mg/dL (0.00-0.30); BILIRUBIN - INDIRECT 0.27 mg/dL (0.00-1.00); BILIRUBIN - TOTAL 0.38 mg/dL (0.2-1.3); CALCIUM 9.2 mg/dL (8.5-10.1); CARBON DIOXIDE 19.6 mmol/L (21.0-32.0); CREATININE - SERUM 13.4 mg/dL (0.6-1.3); PHOSPHOROUS 6.8 mg/dL (2.5-4.9); POTASSIUM - SERUM 4.6 mmol/L (3.5-5.1)
--- NOTE | 2018-04-26 07:00 | NUR ---
SHIFT ASSESSMENT COMPLETED, PT CARE ASSUMED, MONITORS ON AND WORKING, VITALS STABLE, NO SIGNS/SYMPTOMS OF PAIN OR DISCOMFORT NOTED AT THIS TIME, SEE FLOW SHEET FOR FURTHER DETIALS, WILL CONTINUE TO OBSERVE.
--- NOTE | 2018-04-26 09:00 | NUR ---
PT SITTING UP IN BED EATING BREAKFAST, FAMILY AT BEDSIDE, UPDATE PROVIDED, CALL LIGHT WITHIN REACH, WILL CONTINUE TO OBSERVE.
--- NOTE | 2018-04-26 11:00 | NUR ---
HD NURSE AT BEDSIDE, MONITORS ON AND WORKING, VITALS STABLE, SEE FLOW SHEET FOR FURTHER DETAILS. WILL CONTINUE TO OBSERVE.
--- NOTE | 2018-04-26 13:00 | NUR ---
CPM ON PT, PT TOLERATING WELL, MONITORS ON AND WORKING, VITALS STABLE. NO SIGNS/SYMPTOMS OF PAIN OR DISCOMFORT NOTED AT THIS TIME. CALL LIGHT WITHIN REACH, WILL CONTINUE TO OBSERVE.
--- NOTE | 2018-04-26 15:00 | NUR ---
NO CHANGES, FAMILY AT BEDSIDE UPDATE PROVIDED, CALL LIGHT WITHIN REACH, WILL CONTINUE TO OBSERVE.
--- NOTE | 2018-04-26 19:25 | NUR ---
Received patient resting in bed with eyes closed, assessment completed per flowsheet. Patient disoriented to time/situation, follows instructions. S1/S2 noted NSR on telemetry with HR 78, rythmic and regular. Breathing is shallow on room air with O2 sat 96%, lung sounds clear bilateral upper and mid with diminished lower. Abdomen is round/soft with bowel sounds active x4, non-tender. All pulses palpable with cap refill < 3 sec, skin warm/dry. R leg anterior incision with dressing CDI, no bleeding/drainage noted. Patient c/o acute leg aching, repositioned and will provide PRN medication when available. No further needs at this time, see flowsheet for details. All VSS and will continue to monitor.
--- NOTE | 2018-04-26 22:35 | NUR ---
PT TO FLOOR FROM ICU VIA BED ACCOMPANIED BY ICU NURSE MARLYN AND PT FAMILY. PT RESTING IN BED WITH EYES CLOSED. DRESSING TO R LEG C/D/I. INITIAL ASSESSMENT COMPLETED. PT DISORIENTED X2. PAIN 0/10. R SUBCLAVIAN HEMESPLIT SL'D, C/D/I. NO OTHER NEEDS NOTED AT THIS TIME. CL IN REACH, SR UP X2, BED IN LOWEST POSITION.
[2018-04-27] VITALS: BP 145/60
--- NOTE | 2018-04-27 03:45 | NUR ---
PT AWAKE AND ALERT, BEING VERBALLY DISRUPTIVE. DISORIENTED X2. PT STATES PAIN 0/10. REORIENTS TO PERSON SLOWLY. DENIES ANY NEEDS AT THIS TIME. VSS. RR EVEN AND UL, NO S/S OF DISTRESS. CL IN REACH, SR UP X2, BED IN LOWEST POSITION.
[2018-04-27 04:00] VITALS: BP 146/58
[2018-04-27 07:10] VITALS: BP 108/69
--- NOTE | 2018-04-27 07:10 | NUR ---
REPORT RECEIVED FROM PSYCHOLOGIST RESEARCH ASSISTANT. PATIENT LAYING IN BED ON BACK WITH EYES CLOSED AND BREATHING EVENLY. WILL CONTINUE WITH PLAN OF CARE. SR UP X 2 BED IN LOW POSITION AND CALL LIGHT IN REACH.
[2018-04-27 07:24] LABS: BASOPHILS 1.2 % (0-2); EOSINOPHILS 12.8 % (0-7); HEMATOCRIT 31.9 % (36.0-48.0); HEMOGLOBIN 9.4 g/dL (12-16); IMMATURE GRANULOCYTES 4.1 % (0-5); LYMPHOCYTES 19.8 % (15-50); MCH 24.9 pg (26.0-34.0); MCHC 29.5 g/dL (31.0-37.0); MCV 84.6 fL (80.0-100.0); MEAN PLATELET VOLUME 10.5 fL (7.4-10.4); NEUTROPHILS 51.1 % (40-80); PLATELET COUNT 179 10x3/uL (130-400); RBC 3.77 10x6/uL (4.00-5.40); RDW 17.1 % (11.5-14.5); WBC 8.3 10x3/uL (4.8-10.8)
[2018-04-27 07:32] LABS: ALBUMIN 2.3 g/dL (3.4-5.0); ANION GAP 20.4 mmol/L (8-16); BILIRUBIN - TOTAL 0.33 mg/dL (0.2-1.3); CALCIUM 9.1 mg/dL (8.5-10.1); CARBON DIOXIDE 21.6 mmol/L (21.0-32.0); PROTEIN - SERUM 6.2 g/dL (6.4-8.2); URIC ACID 4.2 mg/dL (2.6-7.2)
[2018-04-27 07:39] LABS: CREATININE - SERUM 9.4 mg/dL (0.6-1.3)
[2018-04-27 07:59] VITALS: BP 122/38
--- NOTE | 2018-04-27 08:45 | NUR ---
PATIENT AWAKE AND ORIENTED. PARENTS AT BEDSIDE. PATIENT GIVEN ROUTINE MEDS PER MAR AND PATIENT COMPLAINS OF PAIN OF 10 TO RT LEG. GAVE NORCO 10/325 PER APR AND RE-POSTIONED RT LEG. PATIENT COMPLAINS OF DEPTH PERCEPTION DIFFICULTIES . DENIES ANY BLURRY VISION. WILL CONTACT ADMITTING PAHYSICIAN. WILL CONTINUE TO MONITOR. SR UP X 2 BED IN LOW POSTION AND CALL LIGHT IN REACH.
--- NOTE | 2018-04-27 10:00 | NUR ---
KELVIN LUNDY WITH NEPHOLOGY TO FLOOR. INFORMED OF VISIUAL DIFFICULTIES AND NO NEW ORDERS RECEIVED. ASSESMENT COMPLETED. REPOSITIONED PATIENT FOR COMFORT. PATIENT DENIES ANY NEEDS OR PAIN. PARENTS AT BEDSIDE. WILL CONTINUE TO MONITOR. SR UP X 2 BED IN LOW POSITION AND CALL LIGHT IN REACH.
[2018-04-27 11:25] VITALS: BP 123/43
[2018-04-27] MEDS ORDERED: PROCRIT SC (11:42)
[2018-04-27] MEDS ORDERED: ZOFRAN INJ IV (11:42)
[2018-04-27] MEDS ORDERED: NORCO-10 PO (11:42)
[2018-04-27] MEDS ORDERED: RENAGEL800 MG PO (11:42)
[2018-04-27] MEDS ORDERED: LOVENOX INJ100 MG/ML SC (11:42)
[2018-04-27] MEDS ORDERED: [UNRECOGNIZED DRUG - OTHER] SC (11:42)
[2018-04-27] MEDS ORDERED: PROTONIX40 MG PO (11:42)
[2018-04-27] MEDS ORDERED: NEPHRO-VITE RX1 TAB PO (11:42)
[2018-04-27] MEDS ORDERED: ZOFRAN4 MG PO (14:49)
--- NOTE | 2018-04-27 14:56 | NUR ---
PATIENT LAYING IN BED ON BACK. CPM MACHINE TO RT LEG. PAARENTS ANT BEDSIDE. PATIENT DENIES ANY NEEDS OR PAIN. WILL CONTINUE TO MONITOR.
--- NOTE | 2018-04-27 15:30 | NUR ---
CPM TO RT LEG DC/D PER PT ORDER. PATIENT REPOSITONED FOR COMFORT. PARENTS AT BEDSIDE. WILL CONTINUE TO MONITOR . SR UP X 2 BED IN LOW POSITION AND CALL LIGHT IN REACH.
--- NOTE | 2018-04-27 16:10 | MORECARE ---
CASE MANAGEMENT DISCHARGE SUMMARY PATIENT: PAULINO CORREIA UNIT: [id number] ADM DATE: 04/12/18 AGE: 63 : 55 SEX: F ROOM/BED: D.[facility] AUTHOR: DARNELL KRAUS PHYSICIAN: REFERRING PHYSICIAN: BHAVANI HOFF MD DATE OF SERVICE: 04/27/18 Discharge Plan Patient Name: PAULINO CORREIA Facility: [facility]:[place] : 1955 Planned Disposition: Inpatient Rehab Anticipated Discharge Date: 04/27/18 Discharge Date: Expected LOS: 15 Initial Reviewer: [id number] Initial Review Date: 04/12/2018 Generated: 04/27/18 5:09 pm Comments DCP- Discharge Planning Updated by [id number]: Je Ferrer on 04/27/18 3:[address] Patient Name: PAULINO CORREIA Encounter No: [id number] : 1955 Primary Insurance: MEDICARE A & B Anticipated DC Date: 04-27-2018 Planned Disposition: Inpatient Rehab External Planned Provider: [facility] INPATIENT REHAB DCP follow-up note: CM RECEIVED INPATIENT REHAB PRESCREENING ORDER, SPOKE TO JOI OF INPATIENT REHAB WHO HAS MET WITH PT. PT AGREES TO COME TO INPATIENT REHAB AT [facility], THEY PLAN TO ACCEPT PT TODAY FOR REHAB. PT NOTIFIED, IN AGREEMENT WITH DISCHARGE TO INPATIENT REHAB. IMPORTANT MESSAGE FROM MEDICARE PROVIDED AND EXPLAINED. [facility] INPATIENT REHAB TO CONTACT MED 2 NURSE WITH ROOM NUMBER WHEN READY TO ACCEPT PT AND NURSE REPORT. . PUSHPA Morales DCP- Discharge Planning Updated by [id number]: Je Ferrer on 04/14/18 4:[address] Patient Name: PAULINO CORREIA Encounter No: [id number] : 1955 Primary Insurance: MEDICARE A & B Anticipated DC Date: 04-14-2018 Planned Disposition: Home DCP follow-up note: CM SPOKE TO PT IN ROOM REGARDING DISCHARGE PLANNING. CM EXPLAINED THAT PT'S DAUGHTER, JANNETTE, CALLED AND WAS CONCERNED THAT PT IS NOT SAFE TO RETURN HOME SHE IS NOT ABLE TO STAND, WALK AND GET SELF TO DIALYSIS. CM ALSO INFORMED PT THAT HE DAUGHTER WANTS PT TO HAVE SOME SORT OF REHAB PLACEMENT. CM ALSO EXPLAINED THAT JANNETTE HAD ASKED THAT PT BE RE EVALUATED FOR MEDICAID ELIGIBILITY. CM EXPLAINED THAT MARLYN FROM [facility] ASSESSED FOR MEDICAID AND PT IS OVER INCOME FOR MEDICAID AND DOES NOT QUALIFY FOR MEDICAID SPEND DOWN AT THIS TIME EITHER. PT STATES THAT JANNETTE IS HER STEP DAUGHTER. PT REPORTS THAT "THEY DON'T TELL YOU BEFORE YOU START DIALYSIS THAT YOU NEED A SECONDARY INSURANCE AND ONCE YOU START DIALYSIS, YOU CANNOT GET THE INSURANCE YOU NEED." PT DOES NOT WANT PLACEMENT IN [facility] OR [facility] FACILITY STATING SHE DOES NOT WANT TO "WASTE HER DAYS" SHE HAS FOR REHAB (PATIENT HAS ONLY 20 DAYS OF NON COPAY FOR [facility]). CM EXPLAINED THAT PT IS NOT ELIGIBLE FOR INPATIENT REHAB AT THIS TIME. CM ASKED PT WHAT HER PLAN IS FOR DISCHARGE FROM HOSPITAL SINCE HER SURGERY IS NOT UNTIL 2-20. PT STATES THAT IS GOING TO HAVE TO GET MORE IMAGES TO DETERMINE IF PT EVEN NEEDS A TOTAL KNEE REPLACEMENT. CM EXPLAINED THAT DOES NOT MAKE SENSE TO CM THE DOCTOR HAS ALREADY SCHEDULED SURGERY FOR TOTAL KNEE REPLACMENT PRIOR TO HOSPITAL STAY AND THAT HE MUST ALREADY BE SURE PT NEEDS IT. PT PROVIDED HISTORY OF KIDNEY DISEASE AND BONE DEGENERATION WHY MORE IMAGES ARE NEEDED. PT REPORTS SHE CAME TO HOSPITAL EARLY BECAUSE SHE COULD NOT GET TO DIALYSIS DUE TO KNEE PAIN. CM ASKED WHAT PT PLANS TO DO IF SHE IS NOT KEPT IN HOSPTIAL UNTIL SURGERY; PT STATES THAT DR. LAWSON TOLD HER THAT HE IS GOING TO KEEP PT IN THE HOSPITAL LONG HE CAN. CM AGAIN ASKED PT'S DISCHARGE PLAN IF NOT STAYING IN THE HOSPITAL, PT STATES SHE PLANS TO GO HOME. CM EXPRESSED CONCERN THAT FAMILY HAS STATED IT IS NOT SAFE FOR PT TO GO HOME ALONE, THAT PT IS NOT ABLE TO GET UP AND WALK; PT STATES SHE WAS ABLE TO SIT AT BEDSIDE TODAY WITH THERAPY AND PLANS TO GO HOME IF DISCHARGED PRIOR TO SURGERY AND CAN GET HERSELF TO DIALYSIS. 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 PT PLANS TO DISCHARGE HOME ALONE AND INDEPENDENTLY IF DISCHARGED HOME PRIOR TO KNEE REPLACEMENT SURGERY. CM TO CONTINUE TO FOLLOW AND ASSIST NEEDED. Je Ferrer, CASE MANAGEMENT DCP- Discharge Planning Updated by [id number]: Je Ferrer on 04/13/18 4:[address] Patient Name: PAULINO CORREIA Encounter No: [id number] : 1955 Primary Insurance: MEDICARE A & B Anticipated DC Date: 04-14-2018 DCP follow-up note: CM RECEIVED PHONE MESSAGE REPORTING PT'S DAUGHTER WANTS REHAB FOR PT PRIOR TO GOING HOME. CM ATTEMPTED TO MEET WITH PT AT 0920 AND 1000 HOURS, PT NOT IN ROOM. CM RECEIVED CALL FROM [facility], . NAILA REPORTS PT IS NOT ABLE TO GO HOME ALONE AND IS NOT ABLE TO GET TO AND FROM DIALYSIS. WINNIE DISCUSSED THAT PT HAS NO QUALIFYING DIAGNOSIS FOR INPATIENT REHAB AND DOES NOT APPEAR TO BE ABLE TO PARTICIPATE IN THERAPY AT THIS TIME. NAILA REPORTS UNDERSTANDING SHE HAS TALKED TO DR. PEREZ. WINNIE DISCUSSED [facility] PLACEMENT PT HAS 20 DAYS AT 100% COVERAGE FOR THERAPY SERVICES. NAILA REPORTS AGAIN THAT PT IS NOT YET ABLE TO PARTICIPATE IN THERAPY SERVICES. CM DISCUSSED PLACEMENT IN [facility]; NAILA STATES THAT PT APPLIED FOR MEDICAID ABOUT ONE YEAR AGO BUT DID NOT QUALIFY; THEY WANT PT REEVALUATED FOR MEDICAID PT NOW LIVES ALONE. NAILA ASKED ABOUT HOME HEALTH PROVIDING HOME CARE. WINNIE EXPLAINED THAT MEDICARE DOES NOT PAY FOR PERSONAL CARE SERVICES AND WILL NOT BE IN THE HOME MUCH PT IS NEEDED. NAILA CONTINUES TO REPORT THAT PT CANNOT GO HOME. NAILA REPORTS THAT DR. PEREZ IS THERE WITH HER NOW. CM EXPLAINED THAT CM WILL HAVE MARLYN WITH [facility] SPEAK TO PT REGARDING POSSIBLE MEDICAID AND CM WILL DO TRY TO ASSIST PT WITH NEEDED CARE / PLACEMENT. CM CALLED MARLYN OF [facility] OF [place] WHO MET WITH PT AND REPORTS TO CM THAT PT'S INCOME IS STILL TOO HIGH AT $1900 PER MONTH, FOR MEDICAID AND DOES NOT YET QUALIFY FOR SPEND DOWN MEDICAID. CM TO MEET WITH PT REGARDING HER VERY LIMITED OPTIONS PT'S DAUGHTER REPORTING PT IS NOT SAFE TO DISCHARGE HOME ALONE AND DOES NOT QUALIFY FOR [facility]PATIENT OR [facility] REHAB SERVICES AT THIS TIME. Je Ferrer, CASE MANAGEMENT DCP- Discharge Planning Updated by [id number]: Joy Fischer on 04/12/18 2:[address] Patient Name: PAULINO CORREIA Admission Status: ER Accout number: [id number] Admission Date: 04-12-2018 : 1955 Admission Diagnosis: Attending: BHAVANI HOFF Current LOS: 1 Anticipated DC Date: 04-14-2018 Planned Disposition: Home Primary Insurance: MEDICARE A & B Discharge Planning Comments: CM met with patient to complete initial dc planning assessment. CM educated patient on the CM role and verbal consent given by patient to complete assessment. Patient lives at home alone. She has family that lives nearby that assist as they can. Patient drives herself to and from dialysis every T-Th-Sat. Patient is scheduled to have knee surgery on the 20 of April and she plans to go to rehab post surgery. She stated she wants to go to the rehab where she can stay the longest. Educated her on Medicare rule of 20 days paid at 100%. She verbalized understanding. For this admission patient plans to return home. CM discussed availability of home health, rehab services, and medical equipment. Patient denied known discharge needs at this time. Discussed homebound status for home health. CM will continue to follow and will assist as needed with dc plans/needs. Senior Net Web Developer: Joy Fischer RN, [facility] DCPIA - Discharge Planning Initial Assessment Updated by [id number]: Joy Fischer on 04/12/18 3:29 pm * Is the patient Alert and Oriented? Yes * How many steps to enter\\exit or inside your home? None * PCP Dr. Perez * Pharmacy [facility] * Preadmission Environment Home Alone * ADLs Partial Dependent * Partial ADLs (Assistance needed) Bathing * Equipment Cane Rolling Walker Wheelchair * List name and contact numbers for known caregivers / representatives who currently or will assist patient after discharge: Imelda Hester - - [phone] * Verbal permission to speak to the caregivers and representatives has been obtained from the patient. Yes * Community resources currently utilized None * Please name any agencies selected above. [facility] T-Th-Sat - Drives herself to and from dialysis. * Additional services required to return to the preadmission environment? No * Can the patient safely return to the preadmission environment? Yes * Has this patient been hospitalized within the prior 30 days at any hospital? No Coverage Notice Reviewer: [id number] - Je Ferrer Notice Issued Date-Time: 04/14/2018 14:45 Notice Type: IM Discharge Notice Notice Delivered To: Patient Relationship to Patient: Overlay Plastician Name: Delivery Method: HAND - Hand Delivered Eli Days: Prior Verbal Notification: Recipient Understood Notice: Yes Recipient Signature: Yes Med Rec Note Co-signed by Attending: Coverage Notice Comment: Reviewer: [email or web address] Virginia Ferrer Notice Issued Date-Time: 04/27/2018 14:48 Notice Type: IM Appeals Notice Notice Delivered To: Patient Relationship to Patient: Overlay Plastician Name: Delivery Method: HAND - Hand Delivered Eli Days: Prior Verbal Notification: Recipient Understood Notice: Yes Recipient Signature: Yes Med Rec Note Co-signed by Attending: Coverage Notice Comment: Last DP export: 04/14/18 4:58 p Patient Name: PAULINO CORREIA Page [id number] at 1610 All edits/amendments must be made on the electronic document DICTATION DATE: 04/27/181608 TANK FARM OPERATOR: CARL 04/27/181608 RPT#: [id number] DC DATE: STATUS: ADM IN [facility] [address] [place] [address] END OF REPORT
--- NOTE | 2018-04-27 17:15 | NUR ---
PATIENT DISCHARGE ORDER RECIEVED. PATIENT DC TO INPATIENT REHAB. DISCHARGE INSTRUCTIONS GIVEN VERBALLY AND WRITTEN. PATIENT VERBALIZED UNDERSTANDING AND SIGNED PAPERS. REPORT CALLED TO MANUELITO CHOWDHURY RN. PATIENT IS STABLE AND VS ARE GOOD. PATIENT DENEIS ANY NEEDS OR PAIN. PATIENT TO REHAB VIA BED AND HOSPITAL PERSONNEL.
== END 2018-04-27 17:58 | DRG 469 ==
LOC: D.ER 10:48 → D.M2 13:49 → D.ICU 13:49 → D.EDHOLD 13:49 → D.MS 13:49 → D.M2 14:03 → D.MS 04-20 14:38 → D.ICU 04-23 14:01 → D.M2 04-26 22:53
PROVIDERS: Family Medicine; Internal Medicine; Internal Medicine Nephrology; Orthopaedic Surgery; ADMIT Internal Medicine Nephrology
PROC: 0S9C3ZZ Drainage of Right Knee Joint, Percutaneous Approach (ICD-10-PCS; principal; 2018-04-14)
PROC: 0SRC0JZ Replacement of Right Knee Joint with Synthetic Substitute, Open Approach (ICD-10-PCS; 2018-04-20)
PROC: 06H03DZ Insertion of Intraluminal Device into Inferior Vena Cava, Percutaneous Approach (ICD-10-PCS; 2018-04-22)
DX: M17.11 Unilateral primary osteoarthritis, right knee (principal); N18.6 End stage renal disease; I82.441 Acute embolism and thrombosis of right tibial vein; I12.0 Hypertensive chronic kidney disease with stage 5 chronic kidney disease or end stage renal disease; M87.851 Other osteonecrosis, right femur; G93.40 Encephalopathy, unspecified; M87.9 Osteonecrosis, unspecified; Z99.2 Dependence on renal dialysis; M25.461 Effusion, right knee; E87.5 Hyperkalemia; D50.9 Iron deficiency anemia, unspecified; E83.59 Other disorders of calcium metabolism; F03.90 Unspecified dementia, unspecified severity, without behavioral disturbance, psychotic disturbance, mood disturbance, and anxiety; R53.81 Other malaise

== ENCOUNTER 2018-04-27 18:43 | Inpatient (IN) | payer MEDICARE ==
[~2018-04-27] VITALS: Ht 157.5 cm; Wt 94.8 kg
--- NOTE | ~2018-04-27 | RHP ---
PATIENT: PAULINO CORREIA MEDICAL RECORD: [id number] ACCOUNT: [id number] LOCATION:[facility] : 55 ADMISSION DATE: 04/27/18 REHABILITATION HISTORY AND PHYSICAL EXAMINATION POST ADMISSION PHYSICIAN EXAMINATION DATE OF ADMISSION: 04/27/2018. ADMITTING DIAGNOSIS: Metabolic encephalopathy status post a total knee replacement. HISTORY OF PRESENT ILLNESS: The patient is a 63-year-old female patient admitted with acute metabolic encephalopathy. She presented to the ED with complaints of right knee pain, which was severe. She had a total knee replacement by Dr. Bridges. She reports that her knee was so significant she missed dialysis 2 days prior to this. On exam, her right knee was tender and had a fusion. She is obese and is ambulatory with assistance. Her dialysis session was 5 days ago. She currently denies any dyspnea. Her potassium was mildly elevated at 5.7 on admission. BUN and creatinine of 61 and 14.5. She was admitted from the Emergency Room for planned dialysis in the a.m. She required 3-people assist to get out of bed and 10/10 pain in her knee. She also feels it is more and more reddened. Ortho was consulted. She was started on vancomycin, she grew out Staph haemolyticus. 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 On 04/20/2018, she went to the OR for a right total knee replacement. On day 1 of vancomycin, she had acute changes in mental status, unresponsive to verbal commands and calling out people. Her calf was firm and they had difficulty assessing pedal pulses. Venous Doppler showed acute DVT in her right posterior tibial vein she developed since 04/14/2018. She remained confused, was transferred to the ICU. CT of the head showed no areas of restricted diffusion suggestive of acute ischemia. The patient remained confused and crying out. She had a temperature of 101.1 and leukocytosis. ID was consulted. Cell counts were not consistent with infection as she did not have fever and leukocytosis after knee replacement. No pyuria. DVT apparently could have easily caused her fever and elevated white count. Her Diflucan and Zosyn were both discontinued and she was placed on appropriate meds. On 04/26/2018, she was less confused. She was moved out of ICU. She had mild swelling of her right leg. Her calf component was soft. She was able to wiggle her toes. Previously, she was independent with the use of a cane for balance. Currently, she is mod to max assist for ADLs and mobility secondary to being a high fall risk, intractable pain, intermittent confusion. She is a hemodialysis patient. She has a wound VAC on her knee and she is anxious to regain her strength and hopefully return home. COMORBIDITIES: In this patient include obesity, end-stage renal disease, chronic dementia, right knee pain, avascular necrosis, hypertension, microcytic anemia, calciphylaxis, chronic pain, hypotension, arthritis of the knee. She is catheter dependent. She has postop fever and postop leukocytosis. PAST MEDICAL HISTORY: Significant for CVA, parathyroid problems. She has had a previous tobacco use, renal failure, hemodialysis, avascular necrosis of her knee, UTI, menopause. PAST SURGICAL HISTORY: Includes a fistula to her arm, gallbladder surgery, , hysterectomy, tonsillectomy, adenoidectomy, peritoneal catheter, hemo cath. She has had ureters reimplanted in her bladder and a fistula to her arm. HISTORY AND PHYSICAL [id number] PALUINO CORREIA ALLERGIES: CEPHALOSPORINS. CURRENT MEDICATIONS: She is on sevelamer 800 mg t.i.d. with meals. She is on Procrit 6000 units daily. She is on Protonix 40 mg daily, folic acid daily. She is on colchicine 0.6 mg b.i.d., enoxaparin 90 mg subq q.24 hours, Winthrop 1 tab q.4 hours p.r.n., Zofran 4 mg q.4 hours p.r.n., Uloric 40 mg daily, folic acid daily. HABITS: No alcohol or tobacco use. FAMILY HISTORY: Noncontributory. SOCIAL HISTORY: The patient hopes to return back home and get back to her prior level of functioning. REVIEW OF SYSTEMS: GENERAL: A well-developed female, in no acute distress upon exam. HEENT: Normocephalic and atraumatic. Mucosa moist. NECK: Supple. No lymphadenopathy. LUNGS: Clear at this time. HEART: Regular rate and rhythm. ABDOMEN: Benign. EXTREMITIES: Does have postop swelling, which appears normal. Does have some tenderness to her thigh and calf region. NEUROLOGIC: She does have noted proximal muscle weakness. ASSESSMENT: This is a 63-year-old female patient admitted to the rehab with a working diagnosis of metabolic encephalopathy complicated by DVT after a new onset knee surgery. The patient has potential to make improvement. We instituted the following multidisciplinary therapies including, but not limited to physical, occupational, respiratory, speech, nutritional services, prosthetics and orthotics. Given her complex medical conditions and risks for more complications, rehabilitation services cannot be provided at a low level of care such as skilled nurse facility. PLAN: 1. Admit to [facility] rehab for intensive inpatient therapy to include the following disciplines: A. Physical therapy to improve gait, all transfer skills and bed mobility to a modified independent level. B. Occupational therapy to improve activities of daily living to a modified independent level. C. Case management to assist with discharge planning and placement options. D. Nutrition to assist with nutritional needs. E. Rehabilitation nursing to assist with monitoring the patient's current condition and to help with any type of bowel or bladder management. 2. The patient's current medication and medical care will be continued. 3. The patient will be placed on standard fall precautions. 4. The patient's estimated length of stay is approximately 7-10 days. 5. Discuss the patient's care team staff meeting this week. TRANSINT:[id number] Voice Confirmation ID: [id number] DOCUMENT ID: [id number] HISTORY AND PHYSICAL [id number] PAULINO CORREIA notes whether there has been none or any medical/functional change since admission: - No change since preadmission screen. APRIL attests patient continues to be appropriate for IRF: - Continues to be appropriate. KAMI BOYCE MD CC: [id number] DICTATION DATE: 04/28/18909 SIGNING AGENT: 04/28/18 1102 ADM IN [facility] [address] [place] [address]
[~2018-04-27 18:43] MED LIST changes: +COLCRYS0.6 MG PO; +HYDROCODON-ACE1 EA10 PO; +LOVENOX INJ100 MG/ML SC; +NORCO-10 PO; +PROCRIT SC; +PROTONIX40 MG PO; +RENAGEL800 MG PO; +ULORIC40 MG PO; +ZOFRAN INJ IV; +ZOFRAN4 MG PO; +[UNRECOGNIZED DRUG - OTHER] SC
--- NOTE | 2018-04-27 19:44 | NUR ---
NEW ADMIT WON'T LET YOU SIT HER UP FOR ANYTHING, SCREAMS OUT STATES ITS PAINFUL, FLUIDS AND CALL LIGHT WITHIN REACH
[2018-04-28 00:19] VITALS: BP 115/71; BMI 38.3
[2018-04-28 08:00] VITALS: BP 111/33
--- NOTE | 2018-04-28 09:10 | NUR ---
PT AM MEDS ADMINSITERED. PT JAZMYN NEEDS. WCTM.
--- NOTE | 2018-04-28 11:10 | NUR ---
PT PARTICIPATING IN THERAPY AT THIS TIME, DENIES NEEDS. WCTM.
[2018-04-28 14:02] VITALS: Ht 157.5 cm; Wt 94.8 kg
--- NOTE | 2018-04-28 16:22 | NUR ---
PT TAKEN TO DIALYSIS VIA BED.
[2018-04-28 17:08] LABS: BASOPHILS 0.5 % (0-2); EOSINOPHILS 4.4 % (0-7); HEMATOCRIT 26.7 % (36.0-48.0); HEMOGLOBIN 8.1 g/dL (12-16); IMMATURE GRANULOCYTES 5.2 % (0-5); LYMPHOCYTES 23.9 % (15-50); MCH 25.3 pg (26.0-34.0); MCHC 30.3 g/dL (31.0-37.0); MCV 83.4 fL (80.0-100.0); MEAN PLATELET VOLUME 10.4 fL (7.4-10.4); MONOCYTES 8.1 % (2-11); NEUTROPHILS 57.9 % (40-80); PLATELET COUNT 184 10x3/uL (130-400); RDW 17.2 % (11.5-14.5)
[2018-04-28 17:19] LABS: WBC 11.7 10x3/uL (4.8-10.8)
[2018-04-28 17:25] LABS: ANION GAP 21.4 mmol/L (8-16); CALCIUM 8.8 mg/dL (8.5-10.1); CARBON DIOXIDE 19.7 mmol/L (21.0-32.0); CREATININE - SERUM 11.3 mg/dL (0.6-1.3); POTASSIUM - SERUM 4.1 mmol/L (3.5-5.1)
--- NOTE | 2018-04-28 18:59 | NUR ---
HEMODIALYSIS TREATMENT 1.5 HRS LONG, STOPPED PER PATIENT. AFTER FIRST REQUEST TO STOP AND EDUCATION WAS PROVIDED, PATIENT STAYED ON ANOTHER 10 MINUTES AND TOLD ME NO MORE, SHE HAD TO COME OFF NOW! SHE HAD COMPLAINED OF PAIN IN HER BACK DURING TREATMENT.WAS ONLY ABLE TO REMOVE 500 ML DURING THIS TIME DUE TO PATIENT'S BP READING VARYING SO MUCH, I HAD A DIFFICULT TIME FIGURING WHICH ONES WERE ACCURATE BECAUSE THEY WOULD MOVE LITERALLY 50 MMHG FROM ONE MINUTE TO THE NEXT- I FELT AND LISTENED FOR OVER 5 MINUTES FOR ANY IRREGULARITIES IN HEARTRATE, HOWEVER NONE WERE HEARD OR PALPATED. ONLY CORRELATION I COULD FIND WAS THAT HER BP AND HEARTRATE INCREASED WHEN SHE COMPLAINED OF PAIN. BP CUFF SITE WAS ALTERNATED WELL. LABS WERE DRAWN BEFORE TREATMENT, SHE WAS RUNNING ON A 2.0 K+ ACID AND HER K+ WAS ONLY 4.1 WHEN IT RESULTED, THEREFORE K+ MAY LIKELY BE LOW NOW, NOTIFYING
[2018-04-28 19:00] VITALS: BP 131/66
--- NOTE | 2018-04-28 19:02 | NUR ---
GREETED PATIENT AND INTRODUCED MYSELF HER NURSE FOR THE EVENING. PATIENT JUST RETURNED FROM DIALYSIS AND HIS BEGINNING TO EAT HER DINNER. STATES PAIN IN MID BACK. DENIES ANY FURTHER NEEDS AT THIS TIME. CALL LIGHT IN REACH.
--- NOTE | 2018-04-28 23:17 | NUR ---
REPOSITIONED PATIENT FOR COMFORT AND EDUCATED ADVERTISING DISPATCH CLERK LIGHT AND TELEVISION CONTROLS. CALL LIGHT IN REACH.
[2018-04-29 00:08] VITALS: BP 159/68
[2018-04-29 00:12] VITALS: BP 164/54
--- NOTE | 2018-04-29 02:02 | NUR ---
PATIENT AWAKE LAYING IN BED WATCHING TV. DENIES ANY NEEDS AT THIS TIME. RESPIRATIONS EVEN. NO S/S OF DISTRESS. CALL LIGHT IN REACH.
--- NOTE | 2018-04-29 02:44 | NUR ---
PATIENT ASLEEP WITH EYES CLOSED LAYING IN SUPINE POSITION. HOB AT 30 DEGREES. RESPIRATIONS EVEN NO SIGNS OF DISTRESS. CALL LIGHT IN REACH.
--- NOTE | 2018-04-29 04:17 | NUR ---
PATIENT ASLEEP LAYING IN SUPINE POSITION. HOB AT 30 DEGREES. LEGS ELEVATED ON PILLOW FOR COMFORT. RESPIRATIONS EVEN. NO S/S OF DISTRESS. CALL LIGHT IN REACH.
[2018-04-29 06:10] VITALS: BP 134/76
[2018-04-29 06:58] LABS: BASOPHILS 0.6 % (0-2); EOSINOPHILS 5.3 % (0-7); HEMATOCRIT 26.4 % (36.0-48.0); HEMOGLOBIN 8.2 g/dL (12-16); IMMATURE GRANULOCYTES 5.9 % (0-5); LYMPHOCYTES 23.8 % (15-50); MCHC 31.1 g/dL (31.0-37.0); MCV 83.8 fL (80.0-100.0); MONOCYTES 8.7 % (2-11); NEUTROPHILS 55.7 % (40-80); PLATELET COUNT 193 10x3/uL (130-400); RBC 3.15 10x6/uL (4.00-5.40); RDW 17.5 % (11.5-14.5); WBC 14.5 10x3/uL (4.8-10.8)
[2018-04-29 07:15] LABS: ANION GAP 20.2 mmol/L (8-16); CARBON DIOXIDE 22.7 mmol/L (21.0-32.0); CREATININE - SERUM 8.8 mg/dL (0.6-1.3); POTASSIUM - SERUM 3.9 mmol/L (3.5-5.1)
--- NOTE | 2018-04-29 08:08 | NUR ---
PT SITTING UP IN BED TO EAT BREAKFAST. ASSISTED PT WITH SET UP. PT DENIES NEEDS. WCTM.
[2018-04-29 11:48] VITALS: BP 114/52
--- NOTE | 2018-04-29 12:01 | NUR ---
SPOKE WITH DR. BOYCE AND HE STATES THAT FAMILY WOULD LIKE REFERAL TO BE MADE TO [facility] FOR POSSIBLE ADMISSION. WILL CONTINUE TO FOLLOW WITH PATIENT AND WILL MAKE REFERRAL PER REQUEST
--- NOTE | 2018-04-29 15:46 | NUR ---
PATIENT ADMITTED TO REHAB FROM ACUTE FLOOR. DR. BOYCE IS PATIENT PCP. DME AT HOME IS A WALKER, CANE AND WHEELCHAIR. WILL CONTINUE TO FOLLOW WITH PATIENT AND ASSIST WITH NEEDS.
[2018-04-29 18:00] VITALS: BP 107/47
--- NOTE | 2018-04-29 19:29 | NUR ---
GREETED PATIENT AND INTRODUCED MYSELF HER NURSE FOR THE EVENING. PATIENT IS LAYING IN SUPINE POSITION. HOB AT 30 DEGREES. DENIES ANY NEEDS AT THIS TIME. CALL LIGHT IN REACH.
[2018-04-29 21:21] VITALS: BP 114/52
[2018-04-30] VITALS (8 sets, daily range): BP systolic 114–146; BP diastolic 29–52
--- NOTE | 2018-04-30 02:03 | NUR ---
PATIENT ASLEEP LAYING IN SUPINE POSITION. HOB AT 30 DEGREES. RESPIRATIONS EVEN. NO S/S OF DISTRESS. CALL LIGHT IN REACH.
[2018-04-30] MEDS ORDERED: DURAGESIC1 PATCH .4 TRANSDERM (04:47)
--- NOTE | 2018-04-30 08:15 | NUR ---
PT AM MEDS ADMINISTERED. PT PARTICIPATING IN THERAPY AT THIS TIME. DENIES NEEDS. WCTM.
[2018-04-30 19:57] LABS: BASOPHILS 0.4 % (0-2); EOSINOPHILS 1.2 % (0-7); HEMATOCRIT 25.2 % (36.0-48.0); IMMATURE GRANULOCYTES 5.6 % (0-5); MCH 25.5 pg (26.0-34.0); MCHC 29.8 g/dL (31.0-37.0); MCV 85.7 fL (80.0-100.0); MEAN PLATELET VOLUME 9.4 fL (7.4-10.4); NEUTROPHILS 69.8 % (40-80); RBC 2.94 10x6/uL (4.00-5.40); RDW 18.1 % (11.5-14.5); WBC 16.5 10x3/uL (4.8-10.8)
[2018-04-30 19:59] LABS: HEMOGLOBIN 7.5 g/dL (12-16); PLATELET COUNT 270 10x3/uL (130-400)
[2018-04-30 20:06] LABS: ANION GAP 19.8 mmol/L (8-16); CALCIUM 8.8 mg/dL (8.5-10.1); CARBON DIOXIDE 21.7 mmol/L (21.0-32.0)
[2018-04-30 20:08] LABS: POTASSIUM - SERUM 4.5 mmol/L (3.5-5.1)
--- NOTE | 2018-04-30 20:10 | NUR ---
PATIENT TAKEN TO DIALYSIS. VITAL SIGNS TAKEN BEFORE PATIENT LEFT.
--- NOTE | 2018-04-30 20:14 | NUR ---
PT HAD BECOME INCREASINGLY LETHARGIC THIS AFTERNOON. APPROX 1815 VS 115/51, PULSE 45 AND UNABLE TO OBTAIN O2 SAT. PT FINGERTIPS HAD A BLUEISH TINT. RESPIRATORY CALLED AND PT PLACED ON 2LPM AND ABG'S ORDERED AND OBTAINED. PT ABG H/H WAS 6.8/20. STAT BMP AND CBC ORDERED. RENAL PAGEFallon. NO CALL RETURNED. ROSA CADENA CALLED. ORDERS FOR 2 UNITS OF BLOOD REC'D. DIALYSIS CALLED AND PT TAKEN TO DIALYSIS WHERE PT WILL RECEIVE PRBC DURING TREATMENT.
[2018-05-01 00:27] VITALS: BP 119/48
--- NOTE | 2018-05-01 00:30 | NUR ---
PATIENT RETURNED FROM DIALYSIS. C/O BEING COLD. WARM BLANKET GIVEN. PATIENT HAD NO PAIN. BED LOW. CALL LIGHT WITHIN REACH. WILL CONTINUE TO MONITOR.
--- NOTE | 2018-05-01 00:47 | NUR ---
PATIENT SHOWER NOT GIVEN DUE TO DIALYSIS & PATIENT REFUSAL. WILL CONTINUE TO MONITOR.
--- NOTE | 2018-05-01 00:56 | NUR ---
PATIENT RECENTLY RETURNED FROM DIALYSIS. SHE APPEARS COMFORTABLE WITH NO QUESTIONS OR CONCERNS AT THIS TIME.
--- NOTE | 2018-05-01 02:23 | NUR ---
PATIENT AWAKE REQUEST PAIN MEDICATION. BACK PAIN LEVEL 10. MEDICATION GIVEN. SON AT BEDSIDE. WILL CONTINUE TO MONITOR.
--- NOTE | 2018-05-01 03:47 | NUR ---
PATIENT C/O BEING HOT. TEMPERATURE 98.0 ORAL. FACE FLUSHED. FAN ON NEXT TO BED. WASH CLOTH ON FOREHEAD. CALL LIGHT WITHIN REACH. WILL CONTINUE TO MONITOR.
[2018-05-01 05:49] VITALS: BP 155/55
--- NOTE | 2018-05-01 07:25 | NUR ---
RECEIVED REPORT. LYING IN BED HOB 30 DEGREES, DENIES ANY NEEDS OR PAIN. ALERT AND ORIENTED X4. PODUS BOOTS ON, RIGHT SUBCLAVIAN HEMOSPLIT DRESSING C/D/I. CONTINUES ON 2L VIA NC. RR EVEN AND UNLABORED. CALL LIGHT WITHIN REACH, FALL PRECAUTIONS IN PLACE
[2018-05-01 08:14] VITALS: BP 141/56
--- NOTE | 2018-05-01 08:25 | NUR ---
ADMININSTERED MORNING MEDICATIONS WHOLE ONE AT A TIME WITHOUT DIFFICULTY. DENIES ANY NEEDS OR PAIN. CONTINUES ON 2L VIA NC. TURNED TO RIGHT SIDE AND PROPPED WITH PILLOWS. CALL LIGHT WITHIN REACH, BED IN LOWEST POSITION
--- NOTE | 2018-05-01 10:15 | NUR ---
TURNED PT TO LEFT SIDE PROPPED WITH PILLOWS. CHANGED UNDERPADS, CONTINUES ON 2L VIA NC. SEEMS VERY RESTLESS. WILL CONTINUE TO MONITOR
[2018-05-01 12:23] VITALS: BP 151/50
--- NOTE | 2018-05-01 14:00 | NUR ---
REPOSITIONED PT TO SUPINE HOB 30 DEGREES. FAMILY AT BEDSIDE. INFORMED FAMILY OF STAFF MEETING ON WED. PT CONTINUES ON 2L VIA NC. APPEARS TO BE RESTING QUIETLY.
--- NOTE | 2018-05-01 16:30 | NUR ---
REPOSITIONED PT TO LEFT SIDE USING PILLOWS FOR SUPPORT. NO FAMILY AT BEDSIDE. DENIES ANY NEEDS OR PAIN. CALL LIGHT WITHIN REACH, BED IN LOWEST POSITION.
[2018-05-01 17:15] VITALS: BP 144/59
[2018-05-01 19:32] VITALS: BP 160/60; BP 180/80
--- NOTE | 2018-05-01 19:40 | NUR ---
AWAKE AND ALERT RESTING IN BED. RESPIRATIONS UNLABORED. RIGHT CHEST HEMISPLIT INTACT WITH DRESSING INTACT. O2/2L ON PER NASAL CANNULA. NOTED BILATERAL NON-FUNCTIONING AV GRAFTS. NO C/O DISCOMFORTS AT THIS TIME. CALL LIGHT IN REACH.
[2018-05-02 00:10] VITALS: BP 162/59
--- NOTE | 2018-05-02 01:17 | NUR ---
SON VISITED. MEDICATED PT FOR PAIN. NOW RESTING WITH RESPIRATIONS UNLABORED.
--- NOTE | 2018-05-02 03:43 | NUR ---
RESTING WITH NO DISTRESS NOTED. RESPIRATION UNLABORED.
--- NOTE | 2018-05-02 05:36 | NUR ---
QUIET HOURS. RESTING IN BED WITH NO DISTRESS NOTED. O2/2L ON PER NASAL CANNULA. CALL LIGHT IN REACH.
[2018-05-02 05:59] VITALS: BP 138/94
[2018-05-02 07:22] LABS: BASOPHILS 0.4 % (0-2); EOSINOPHILS 1.3 % (0-7); HEMATOCRIT 28.5 % (36.0-48.0); IMMATURE GRANULOCYTES 4.1 % (0-5); LYMPHOCYTES 11.9 % (15-50); MCH 26.5 pg (26.0-34.0); MCHC 31.6 g/dL (31.0-37.0); MCV 84.1 fL (80.0-100.0); MEAN PLATELET VOLUME 9.5 fL (7.4-10.4); MONOCYTES 10.2 % (2-11); NEUTROPHILS 72.1 % (40-80); PLATELET COUNT 279 10x3/uL (130-400); RBC 3.39 10x6/uL (4.00-5.40); RDW 18.8 % (11.5-14.5); WBC 19.8 10x3/uL (4.8-10.8)
--- NOTE | 2018-05-02 08:05 | NUR ---
PT AM MEDS ADMINSITERED. PT SET UP FOR BREAKFAST. PT DENIES NEEDS. WCTM.
[2018-05-02 08:23] LABS: ANION GAP 20.7 mmol/L (8-16); CALCIUM 8.3 mg/dL (8.5-10.1); CARBON DIOXIDE 23.6 mmol/L (21.0-32.0); POTASSIUM - SERUM 4.3 mmol/L (3.5-5.1)
[2018-05-02 08:31] VITALS: BP 143/51
[2018-05-02 12:10] VITALS: BP 152/63
[2018-05-02 18:44] VITALS: BP 155/59
--- NOTE | 2018-05-02 20:23 | NUR ---
REST IN BED, CALL LIGHT IN REACH.
--- NOTE | 2018-05-02 21:35 | NUR ---
PT REFUSED SCHEDULE PM MEDS.
--- NOTE | 2018-05-02 21:58 | NUR ---
PT ASLEEP NO NEEDS NOTED, FLUIDS AND CALL LIGHT WITHIN REACH
[2018-05-03] VITALS: BP 117/82
--- NOTE | 2018-05-03 00:59 | NUR ---
REST IN BED, RESP EVEN, NO DISTRESS. CALL LIGHT IN REACH.
--- NOTE | 2018-05-03 04:29 | NUR ---
REPOSITION PT. CALL LIGHT IN REACH.
[2018-05-03 06:00] VITALS: BP 124/52
--- NOTE | 2018-05-03 08:15 | NUR ---
PT RESTING IN BED EATING BREAKFAST TOLERATING WELL CALL LIGHT IN REACH WILL MONITER
--- NOTE | 2018-05-03 10:00 | NUR ---
WOUND CARE CONTACTED ABOUT STAGE TO ON RIGHT BUTTOCKS AND BLACK COLOR TO BILATERAL TOES
--- NOTE | 2018-05-03 10:17 | NUR ---
Pt is on a Renal diet with poor po intake. Observed breakfast and pt did not eat much. Assisted pt with set up. PT assisted with meal and pt ate a few bites. Reviewed old chart and pt has not been eating much for 3 weeks. Pt has not lost weight based on available weights Reviewed labs with nursing and Potassium WNL. Recommend to liberalize diet to regular until po intake improves. Also recommend an appetite stimulant Will add protein supplement RD following
--- NOTE | 2018-05-03 12:00 | NUR ---
EATING LUNCH.PLAN TO DC UPSTAIRS.
[2018-05-03 12:15] VITALS: BP 119/62
--- NOTE | 2018-05-03 13:58 | NUR ---
Pt's primary nurse called wound nurse in reference to needing an overlay mattress due to pt having sheering on her bottom and heels being discolored. Overlay was delivered and placed on pt's bed by Rehab staff. Pt was transported by bed to dialysis where wound assessment was performed. Right Great toe and #2 toe are purple and are black on the tips. They are cold to the touch. Right heel has a 4cm x 4cm deep tissue injury on the lateral side. Left heel has 5cm x 5cm deep tissue injury on lateral side. It is boggy. Left foot is purple including all 5 toes. It is cold to the touch. Left top of foot redness is noted in 2 spots, each approx 2cm x 2cm. Right buttock has a 3.5cm x 2cm x 0.2cm Stage 2 pressure injury. Right knee has alex intact from recent TKA. It is also noted that pt has scratches, bruises and dry peeling skin on arms, legs, buttocks, torso. Dr. Mclaughlin was notified of finding and entered new orders. Wound care will continue monitoring.
[2018-05-03] MEDS ORDERED: BUPRENEX IV (14:43)
--- NOTE | 2018-05-03 15:27 | NUR ---
PATIENT DISCHARGED FROM REHAB AND ADMITTED TO ACUTE FLOOR DUE TO ISCHMIA DIGITS.
--- NOTE | 2018-05-03 16:23 | NUR ---
PT DISCHARGED TO ACUTE CARE PER DR LAWSON
== END 2018-05-03 16:34 | disposition short-term general hospital (02) | DRG 91 ==
LOC: D.REHAB 18:43
PROVIDERS: Internal Medicine Nephrology; ADMIT Emergency Medicine; ATTEND Emergency Medicine
DX: G92 Toxic encephalopathy (principal); N18.6 End stage renal disease; I12.0 Hypertensive chronic kidney disease with stage 5 chronic kidney disease or end stage renal disease; M87.9 Osteonecrosis, unspecified; Z47.1 Aftercare following joint replacement surgery; Z96.651 Presence of right artificial knee joint; Z99.2 Dependence on renal dialysis; F03.90 Unspecified dementia, unspecified severity, without behavioral disturbance, psychotic disturbance, mood disturbance, and anxiety; D50.9 Iron deficiency anemia, unspecified; E66.9 Obesity, unspecified; E87.5 Hyperkalemia; M17.11 Unilateral primary osteoarthritis, right knee; R53.81 Other malaise; E83.59 Other disorders of calcium metabolism

== ENCOUNTER 2018-05-03 14:38 | Inpatient (IN) | payer MEDICARE ==
[~2018-05-03] VITALS: Ht 157.5 cm
[~2018-05-03 14:38] MED LIST changes: +DURAGESIC1 PATCH .4 TRANSDERM
[2018-05-03] MEDS ORDERED: BUPRENEX IV (14:43)
[2018-05-03 17:24] VITALS: BP 132/61; BMI 38.3
--- NOTE | 2018-05-03 17:30 | NUR ---
PT TO FLOOR FROM HD VIA BED. PT ALERT TO PERSON AND PLACE. VITALS STABLE. EXCORIATION NOTED TO L BUTTCHEECK. QUATER SIZE SCAB TO L CALF. SCAB TO R ELBOW. ISCHEMIC TOES THAT ARE NON BLANCHABLE TO GREAT R TOE, 2ND R TOE, AND ALL 5 TOES TO L FOOT. REX FEET COLD. R HEEL BOGGY, L HEEL/ANKLE BOGGY. R CHEST HEMESPLIT NOTED, DRSG C/D/I. NO FURTHER CONCERNS AT THIS TIME. WILL CPOC.
--- NOTE | 2018-05-03 19:00 | NUR ---
KENNEL HAND INFORMED ME THAT SHE CANT DO CTA AFRO DUE TO PT ONLY ACCESS IS HEMESPLIT. PT ALSO BILATERAL RESERVE ARM. PAGED ENRICHMENT DIRECTOR RENAL MILK PICKUP DRIVER AT 0611, NO CALL BACK YET.
--- NOTE | 2018-05-03 19:09 | NUR ---
PT IN BED. SON AT BEDSIDE. PT DENIES NEEDS AT THIS TIME.
--- NOTE | 2018-05-03 19:27 | NUR ---
CALLED RENAL OUTSIDE SALES ADVERTISING EXECUTIVE ABOUT PT CTA AFRO AT 0720. NO RESPONSE AT THIS TIME.
--- NOTE | 2018-05-03 20:14 | NUR ---
20G IV TO R HAND STARTED ORDERED BY RENAL DUE TO BILATERAL RESERVE AND INABILITY TO USE HEMESPLIT. IMAGING NOTIFIED. HAND FLUSH TEST FAILED.
[2018-05-03 21:01] VITALS: BP 116/38
--- NOTE | 2018-05-03 21:09 | NUR ---
US PERFORMED. RENAL PAGED AND INFORMED OF INABILITY TO OBTAIN PERIPHERAL IV. WILL WAIT ON VASCULAR ACCESS IN THE AM. NO VASCULAR ACCESS AVAILABLE AT NIGHT.
[2018-05-04 01:06] VITALS: BP 118/32
--- NOTE | 2018-05-04 03:50 | NUR ---
PT LAYING IN BED WITH EYES CLOSED. PT HAS SHALLOW BREATHS, AROUSED TO NURSE IN ROOM. 2L O2 NC. NO IV FLUIDS INFUSING. 1ST STEP OVERLAY BED NOTED. PT SAYING NEEDS ASSIST FINDING GLASSES. ASSISTED PT. PT ASKED ABOUT PAIN RELIEF. SPOKE WITH LOIS AGUIRRE REGARDING PAIN. LOIS VERBALIZED HE WILL OBTAIN ORDERS AND GIVE. PT BEDLOW AND CALL LIGHT IN REACH. WILL CPOC
[2018-05-04 06:05] VITALS: BP 91/38
[2018-05-04 07:28] LABS: ANION GAP 16.9 mmol/L (8-16); CALCIUM 8.3 mg/dL (8.5-10.1); CARBON DIOXIDE 25.8 mmol/L (21.0-32.0); CREATININE - SERUM 6.8 mg/dL (0.6-1.3); POTASSIUM - SERUM 3.7 mmol/L (3.5-5.1)
[2018-05-04 08:37] LABS: BASOPHILS 0.3 % (0-2); EOSINOPHILS 1.6 % (0-7); HEMATOCRIT 27.3 % (36.0-48.0); HEMOGLOBIN 8.4 g/dL (12-16); IMMATURE GRANULOCYTES 1.5 % (0-5); LYMPHOCYTES 6.8 % (15-50); MCH 26.3 pg (26.0-34.0); MCHC 30.8 g/dL (31.0-37.0); MCV 85.3 fL (80.0-100.0); MEAN PLATELET VOLUME 9.5 fL (7.4-10.4); MONOCYTES 11.5 % (2-11); NEUTROPHILS 78.3 % (40-80); PLATELET COUNT 278 10x3/uL (130-400); RDW 19.5 % (11.5-14.5); WBC 19.5 10x3/uL (4.8-10.8)
--- NOTE | 2018-05-04 09:15 | NUR ---
Pt admitted to 05/03/18 after being discharged from Rehab due to ischemic feet (Right Great and #2 toes and all toes on left foot to midfoot). Right heel has a 4cm x 4cm deep tissue injury on lateral side and left heel has a 5cm x 5cm deep tissue injury on lateral side that is boggy. There are 2 red areas on the top of left foot, each measuring 2cm x 2cm that are related to the strap of offloading boots. Right buttock has a stage 2 pressure injury measuring 3.5cm x 2cm x 0.2cm. Right knee has alex intact. Order has been placed for removal. Pt has scratches, bruises and dry peeling skin on arms, legs, buttocks and torso. Pt is on an air overlay mattress and requires assistance with turning/repositioning every 2 hours while in bed. Recommendations: -Turn/reposition q 2 hours -Keep heels bridged -mepilex for protection of stage 2 pressure injury on right buttock Wound care continues to monitor.
[2018-05-04 09:38] VITALS: BP 93/34
[2018-05-04 10:50] VITALS: BMI 38.2
--- NOTE | 2018-05-04 13:18 | NUR ---
PATIENT REFUSING TO KEEP SCDS ON AT THIS TIME
[2018-05-04 14:54] LABS: INR 1.32 (0.85-1.17); PROTIME 15.9 SECONDS (11.6-15.0)
--- NOTE | 2018-05-04 16:18 | NUR ---
PT ASSISTED UP IN BED WITH HELP. FAMILY AT BEDSIDE FEEDING PT ICE CHIPS. APPLIED PILLOW TO PT R SIDE TO SUPPORT PT SINCE SHE HAS A TENDENCY TO LEAN TO THE R. NO FURTHER CONCERNS AT THIS TIME.
[2018-05-04 20:00] VITALS: BP 116/37
[2018-05-05] VITALS: BP 129/41
--- NOTE | 2018-05-05 00:53 | NUR ---
PT RESTING COMFORTABLY WITH CPAP RUNNING. RR EVEN AND UNLABORED. NO S/S OF DISTRESS. 3 CONTAINERS OF JEVITY ADDED TO PT BAG. VITALS STABLE.BED LOW, BED ALARM IN PLACE, CALL LIGHT WITHIN REACH. WILL CONTINUE TO MONITOR.
[2018-05-05 04:30] VITALS: BP 113/39
[2018-05-05 07:03] LABS: BASOPHILS 0.5 % (0-2); EOSINOPHILS 3.2 % (0-7); HEMATOCRIT 23.2 % (36.0-48.0); IMMATURE GRANULOCYTES 1.7 % (0-5); LYMPHOCYTES 11.6 % (15-50); MCH 26.2 pg (26.0-34.0); MCV 84.4 fL (80.0-100.0); MEAN PLATELET VOLUME 8.5 fL (7.4-10.4); MONOCYTES 8.7 % (2-11); NEUTROPHILS 74.3 % (40-80); PLATELET COUNT 232 10x3/uL (130-400); RBC 2.75 10x6/uL (4.00-5.40); RDW 19.5 % (11.5-14.5)
--- NOTE | 2018-05-05 07:10 | NUR ---
REPORT RECIEVED FROM SUPERVISOR FELTING. PATIENT LAYING IN BED ON BACK WITH EYES CLOSED AND BREATHING EVENLY. VSS. WILL CONTINUE WITH PLAN OF CARE. SR UP X 2 BED IN LOW POSITION AND CALL LIGHT IN REACH.
[2018-05-05 07:21] LABS: WBC 14.5 10x3/uL (4.8-10.8)
[2018-05-05 07:22] LABS: HEMOGLOBIN 7.2 g/dL (12-16)
[2018-05-05 07:26] LABS: ANION GAP 16.7 mmol/L (8-16); CALCIUM 7.7 mg/dL (8.5-10.1); CARBON DIOXIDE 23.9 mmol/L (21.0-32.0); CREATININE - SERUM 8.4 mg/dL (0.6-1.3); PHOSPHOROUS 4.5 mg/dL (2.5-4.9); POTASSIUM - SERUM 3.6 mmol/L (3.5-5.1); URIC ACID 3.8 mg/dL (2.6-7.2)
[2018-05-05 08:58] VITALS: BP 110/30
--- NOTE | 2018-05-05 10:36 | NUR ---
PATIENT IS STABLE AND VSS. PATIENT DENIES ANY NEEDS OR PAIN. PATIENT TO DIALYSIS IN BE VIA HOSPITAL PERSONNEL.
--- NOTE | 2018-05-05 10:45 | NUR ---
PATIENT TO DIALYSIS IN BED VIA HOSPITAL PERSONNEL. PATIENT IS STABLE AND VSS.
[2018-05-05 12:59] VITALS: Ht 157.5 cm
--- NOTE | 2018-05-05 13:30 | NUR ---
PATIENT RETURNED FROM DIALYSIS VIA BED AND HOSPITAL PERSONNEL. PATIENT IS STABLE AND VS GOOD. PATIENT RECIEVED 2 UNITS PRBC'S IN DIALYSIS. WILL CONTINUE TO MONITOR.
[2018-05-05 16:07] VITALS: BP 118/32
[2018-05-05 20:00] VITALS: BP 122/32
[2018-05-06] VITALS: BP 118/36
[2018-05-06 04:00] VITALS: BP 118/36
[2018-05-06 06:08] LABS: BASOPHILS 0.5 % (0-2); EOSINOPHILS 2.5 % (0-7); HEMATOCRIT 30.5 % (36.0-48.0); HEMOGLOBIN 9.6 g/dL (12-16); IMMATURE GRANULOCYTES 1.5 % (0-5); LYMPHOCYTES 12.8 % (15-50); MCH 25.7 pg (26.0-34.0); MCHC 31.5 g/dL (31.0-37.0); MCV 81.6 fL (80.0-100.0); MEAN PLATELET VOLUME 8.9 fL (7.4-10.4); MONOCYTES 12.1 % (2-11); NEUTROPHILS 70.6 % (40-80); PLATELET COUNT 186 10x3/uL (130-400); RBC 3.74 10x6/uL (4.00-5.40); RDW 21.2 % (11.5-14.5); WBC 12.6 10x3/uL (4.8-10.8)
[2018-05-06 06:41] LABS: CALCIUM 8.3 mg/dL (8.5-10.1); CARBON DIOXIDE 25.6 mmol/L (21.0-32.0); CHLORIDE - SERUM 95 mmol/L (98-107); CREATINE KINASE 366 UL (21-215); GLUCOSE 93 mg/dL (74-106); PHOSPHOROUS 3.4 mg/dL (2.5-4.9); POTASSIUM - SERUM 3.5 mmol/L (3.5-5.1); SODIUM 132 mmol/L (136-145); eGFR NON AFRICAN AMERICAN 9 mL/min (90-120)
[2018-05-06 06:45] LABS: CALC OSMOLALITY 267 mosm/kg (275-300); CREATININE - SERUM 5.2 mg/dL (0.6-1.3); UREA NITROGEN 20 mg/dL (7-18)
[2018-05-06 06:46] LABS: CKMB 4.5 U/L (0.0-3.6)
--- NOTE | 2018-05-06 07:10 | NUR ---
REPORT RECEIVED FROM BODY BUILDER APPRENTICE. PATIENT LAYING IN BED WITH EYES CLOSED AND BREATHING EVENLY. VSS. WILL CONTINUE WITH PLAN OF CARE. SR UP X 2 BED IN LOW POSITION AND CALL LIGHT IN REACH.
[2018-05-06 09:11] VITALS: BP 140/46
[2018-05-06 11:42] VITALS: BP 123/37
[2018-05-06 15:49] VITALS: BP 162/47
--- NOTE | 2018-05-06 16:13 | NUR ---
PATIENT LAYING IN BED. REPOSTIONED FOR COMFORT. PATIENT DENEIS ANY NEEDS OR PAIN. FAMILY AT BEDSIDE. WILL CONTINUE TO MONITOR. SR UP X 2 BEDE IN LOW POSITION.L
[2018-05-06 20:00] VITALS: BP 121/46
--- NOTE | 2018-05-06 22:30 | NUR ---
PT LAYING IN BED WITH SON AT BEDSIDE FEEDING PT SOUP AND FRIED RICE. PT RR EVEN AND UNLABORED. NO S/S OF DISTRESS. PT COMPLAINS OF PAIN IN RIGHT FOOT. PRN MEDICATION GIVEN. BED LOW CALL LIGHT WITHIN REACH. WILL CONTINUE TO MONITOR.
[2018-05-07] VITALS: BP 123/47
--- NOTE | 2018-05-07 03:13 | NUR ---
I have reviewed this patient and I concur with the Shift Assessment completed by the Licensed Practical Nurse today this shift.
[2018-05-07 04:00] VITALS: BP 111/44
[2018-05-07 05:37] LABS: BASOPHILS 0.6 % (0-2); EOSINOPHILS 1.8 % (0-7); HEMATOCRIT 31.1 % (36.0-48.0); HEMOGLOBIN 9.8 g/dL (12-16); IMMATURE GRANULOCYTES 1.6 % (0-5); LYMPHOCYTES 11.5 % (15-50); MCH 25.7 pg (26.0-34.0); MCHC 31.5 g/dL (31.0-37.0); MCV 81.6 fL (80.0-100.0); MEAN PLATELET VOLUME 9.1 fL (7.4-10.4); MONOCYTES 13.8 % (2-11); NEUTROPHILS 70.7 % (40-80); PLATELET COUNT 202 10x3/uL (130-400); RBC 3.81 10x6/uL (4.00-5.40); RDW 20.5 % (11.5-14.5); WBC 11.7 10x3/uL (4.8-10.8)
[2018-05-07 05:51] LABS: ANION GAP 19.4 mmol/L (8-16); CALCIUM 8.3 mg/dL (8.5-10.1); CARBON DIOXIDE 22.1 mmol/L (21.0-32.0); POTASSIUM - SERUM 3.5 mmol/L (3.5-5.1)
[2018-05-07 05:53] LABS: CREATININE - SERUM 6.8 mg/dL (0.6-1.3)
--- NOTE | 2018-05-07 07:15 | NUR ---
REPORT RECIEVED AND MORNING ROUNDING COMPLETE. PT LAYING IN BED WITH FAMILY IN THE ROOM. PT IS REFUSING TO GO TO DIALYSIS TODAY STATES IT IS USELESS. PT HAS NC WITH 02 AT 2L. NO OTHER NEEDS AT THIS TIME CALL LIGHT WIHTIN REACH. BED IN LOWEST POSITION. PT HAS 1ST STEP OVERLAY.
[2018-05-07 08:59] VITALS: BP 105/33
[2018-05-07 11:30] VITALS: BP 117/38
[2018-05-07 15:30] VITALS: BP 118/43
--- NOTE | 2018-05-07 16:22 | NUR ---
AGREE WITH SUPERVISOR FUR FLOOR WORKER ASSESSMENT
[2018-05-07 20:00] VITALS: BP 120/45
--- NOTE | 2018-05-07 20:04 | NUR ---
RECIEVED RESTING IN BED WITH EYES CLOSED. IV TO LEFT HAND AND FA SL.. HEMOSPLIT TO RIGHT UPPER CHEST. FENTENYL PATCH TO RIGHT CHEST. TIP OF TOES ON RIGHT AND LEFT FOOT BLACK IN COLOR AND REDDENED AROUND THE BLACK AREAS. BOOTS IN PLACE. BRUISING TO BILATERAL ARMS. BILATERAL ARMS RESERVED D/T AVF. NO S/S OF DISTRESS OBSERVED.
[2018-05-08] VITALS: BP 102/40; BP 120/45
[2018-05-08 04:00] VITALS: BP 121/41
[2018-05-08 05:35] LABS: BASOPHILS 0.4 % (0-2); EOSINOPHILS 1.6 % (0-7); HEMOGLOBIN 9.5 g/dL (12-16); IMMATURE GRANULOCYTES 1.7 % (0-5); LYMPHOCYTES 12.3 % (15-50); MCH 25.9 pg (26.0-34.0); MCHC 31.7 g/dL (31.0-37.0); MCV 81.7 fL (80.0-100.0); MEAN PLATELET VOLUME 8.9 fL (7.4-10.4); MONOCYTES 8.7 % (2-11); NEUTROPHILS 75.3 % (40-80); PLATELET COUNT 181 10x3/uL (130-400); RBC 3.67 10x6/uL (4.00-5.40); RDW 20.3 % (11.5-14.5); WBC 10.1 10x3/uL (4.8-10.8)
[2018-05-08 05:51] LABS: ANION GAP 20.3 mmol/L (8-16); CALCIUM 8.1 mg/dL (8.5-10.1); CARBON DIOXIDE 20.5 mmol/L (21.0-32.0); CREATININE - SERUM 8.4 mg/dL (0.6-1.3); POTASSIUM - SERUM 3.8 mmol/L (3.5-5.1)
[2018-05-08 05:52] LABS: PHOSPHOROUS 5.5 mg/dL (2.5-4.9)
[2018-05-08 07:30] VITALS: BP 128/41
[2018-05-08 11:30] VITALS: BP 118/45
--- NOTE | 2018-05-08 14:00 | NUR ---
RESTING IN BED. FAMILY AT BEDSIDE CONVERSATING ABOUT HOSPICE CARE. ASSIST TO BEDPAN PER PATIENT REQUEST. UNABLE TO VOID OR HAVE BOWEL MOVEMENT. DENIES ANY NEEDS. CONTINUE PLAN OF CARE AND SAFETY PRECAUTIONS.
[2018-05-08 15:30] VITALS: BP 125/39
--- NOTE | 2018-05-08 19:47 | NUR ---
RECIEVED UP IN BED WITH EYES CLOSED. EASILY AROUSES WITH VERBAL STIMULI. BOOTS OFF AT THIS TIME. REPORTED SOME PRESSURE AREAS. FEET FLOATED ON PILLOW AT THIS TIME. FENTENYL PATCH TO RIGHT SHOULDER. HEMOSPLIT TO RIGHT UPPER CHEST WITH DSG INTACT. IV TI LEFT FA X2 SL.. TOES ON BOTH FEET NECROTIC. DENIES ANY NEEDS AT THIS TIME,
[2018-05-08 21:53] VITALS: BP 102/35
--- NOTE | 2018-05-09 04:27 | NUR ---
CALLED TO ROOM D/T PT HAVING NOSE BLEED. SMALL AMT OF BLOOD ON FACE. BLOOD ON RIGHT HAND INDEX FINGER ALSO. CLEANED OFF HER FACE AND WILL CONT. TO OBSERVE.
[2018-05-09 04:53] VITALS: BP 111/51
[2018-05-09 06:11] LABS: BASOPHILS 0.3 % (0-2); EOSINOPHILS 2.2 % (0-7); HEMATOCRIT 29.9 % (36.0-48.0); HEMOGLOBIN 9.6 g/dL (12-16); IMMATURE GRANULOCYTES 1.5 % (0-5); MCH 26.2 pg (26.0-34.0); MCHC 32.1 g/dL (31.0-37.0); MCV 81.7 fL (80.0-100.0); MEAN PLATELET VOLUME 9.4 fL (7.4-10.4); MONOCYTES 7.9 % (2-11); NEUTROPHILS 80.1 % (40-80); PLATELET COUNT 204 10x3/uL (130-400); RBC 3.66 10x6/uL (4.00-5.40); RDW 20.5 % (11.5-14.5); WBC 9.1 10x3/uL (4.8-10.8)
[2018-05-09 06:18] LABS: ANION GAP 21.3 mmol/L (8-16); CALCIUM 7.4 mg/dL (8.5-10.1); CARBON DIOXIDE 21.4 mmol/L (21.0-32.0); CREATININE - SERUM 9.7 mg/dL (0.6-1.3); PHOSPHOROUS 6.6 mg/dL (2.5-4.9)
[2018-05-09 06:20] LABS: POTASSIUM - SERUM 4.7 mmol/L (3.5-5.1)
[2018-05-09 08:50] VITALS: BP 109/46
[2018-05-09 11:53] VITALS: BP 97/34
[2018-05-09 15:42] VITALS: BP 101/45
--- NOTE | 2018-05-09 19:19 | NUR ---
REPORTED PT IN DIALYSIS AT THIS TIME.
[2018-05-10] VITALS: BP 151/59
[2018-05-10 06:25] VITALS: BP 128/53
[2018-05-10 06:32] LABS: BASOPHILS 0.2 % (0-2); HEMATOCRIT 32.9 % (36.0-48.0); HEMOGLOBIN 10.5 g/dL (12-16); LYMPHOCYTES 8.5 % (15-50); MCH 26.2 pg (26.0-34.0); MCHC 31.9 g/dL (31.0-37.0); MEAN PLATELET VOLUME 8.9 fL (7.4-10.4); MONOCYTES 6.1 % (2-11); NEUTROPHILS 83.2 % (40-80); PLATELET COUNT 208 10x3/uL (130-400); RBC 4.01 10x6/uL (4.00-5.40); RDW 20.6 % (11.5-14.5); WBC 9.6 10x3/uL (4.8-10.8)
[2018-05-10 07:00] LABS: ALBUMIN 1.9 g/dL (3.4-5.0); ANION GAP 22.3 mmol/L (8-16); BILIRUBIN - TOTAL 0.54 mg/dL (0.2-1.3); CALCIUM 8.3 mg/dL (8.5-10.1); CARBON DIOXIDE 21.2 mmol/L (21.0-32.0); CREATININE - SERUM 7.4 mg/dL (0.6-1.3); PROTEIN - SERUM 6.6 g/dL (6.4-8.2)
[2018-05-10 07:04] LABS: POTASSIUM - SERUM 3.5 mmol/L (3.5-5.1)
[2018-05-10 09:13] VITALS: BP 150/62
--- NOTE | 2018-05-10 10:15 | MORECARE ---
CASE MANAGEMENT DISCHARGE SUMMARY PATIENT: PAULINO CORREIA UNIT: [id number] ADM DATE: 05/03/18 AGE: 63 : 55 SEX: F ROOM/BED: D.0 AUTHOR: DARNELL KRAUS PHYSICIAN: REFERRING PHYSICIAN: DARCY LAWSON MD DATE OF SERVICE: 05/10/18 Discharge Plan Patient Name: PAULINO CORREIA [facility] [facility] 1955 Planned Disposition: Anticipated Discharge Date: Discharge Date: Expected LOS: Initial Reviewer: [email or web address] Initial Review Date: 05/10/2018 Generated: 05/10/18 11:15 am DCPIA - Discharge Planning Initial Assessment Updated by [email or web address]: Elizabeth Hernandez on 05/10/18 10:11 am * PCP CARLI * Preadmission Environment Home Alone * ADLs Independent * Equipment Cane Wheelchair * List name and contact numbers for known caregivers / representatives who currently or will assist patient after discharge: RYLEE DORMAN, MOTHER, * Community resources currently utilized None * Additional services required to return to the preadmission environment? Yes * Can the patient safely return to the preadmission environment? No * Has this patient been hospitalized within the prior 30 days at any hospital? Yes Patient Name: PAULINO CORREIA Page 66027 at 1015 All edits/amendments must be made on the electronic document DICTATION DATE: 05/10/18 1015 FIRE BOSS: CARL 05/10/18 1015 RPT#: [id number] DC DATE: STATUS: ADM IN [facility] [address] [place] [address] END OF REPORT
--- NOTE | 2018-05-10 10:22 | MORECARE ---
CASE MANAGEMENT DISCHARGE SUMMARY PATIENT: PAULINO CORREIA UNIT: [id number] ADM DATE: 05/03/18 AGE: 63 : 55 SEX: F ROOM/BED: D.046 AUTHOR: DARNELL KRAUS PHYSICIAN: REFERRING PHYSICIAN: DARCY BOYLE MD DATE OF SERVICE: 05/10/18 Discharge Plan Patient Name: PAULINO CORREIA Facility: [facility]:[place] : 1955 Planned Disposition: Anticipated Discharge Date: Discharge Date: Expected LOS: Initial Reviewer: [email or web address] Initial Review Date: 05/10/2018 Generated: 05/10/18 11:22 am Comments DCP- Discharge Planning Updated by [email or web address]: Elizabeth Hernandez on 05/10/18 9:[address] Patient Name: PAULINO CORREIA Admission Status: Elective Accout number: [id number] Admission Date: 05-03-2018 : 1955 Admission Diagnosis:OTHER DISORDER OF CIRCULATORY SYSTEM Attending: Darcy Boyle Current LOS: 7 Anticipated DC Date: Planned Disposition: Primary Insurance: MEDICARE A & B Discharge Planning Comments: CM MET WITH PATIENT'S MOTHER RYLEE ABOUT PATIENTS DC PLANNING/NEEDS. SHE STATES THE PATIENT'S SONS ARE THINKING OVER IT NOW ON WHAT TO DO. THEY ARE THINKING ABOUT HOSPICE. THE PATIENT'S MOTHER STATES SHE THINKS HOSPICE WOULD BE THE BEST THING FOR HER DAUGHTER, SHE ALSO STATED SHE DOESN'T THINK HER SON'S ARE WANTING TO MAKE THE DECISION ON WHAT TO DO. CM WILL FOLLOW AND ASSIST NEEDED WITH DC PLANNING NEEDS. PATIENT'S MOTHER STATES SHE WOULD LIKE ADVICE FROM THE DOCTOR ON MAKING A DECISION. Rivet Hammer Machine Operator: Elizabeth Hernandez DCPIA - Discharge Planning Initial Assessment Updated by [email or web address]: Elizabeth Hernandez on 05/10/18 10:11 am * PCP CARLI * Preadmission Environment Home Alone * ADLs Independent * Equipment Cane Wheelchair * List name and contact numbers for known caregivers / representatives who currently or will assist patient after discharge: MOTHER BRAGG, * Community resources currently utilized None * Additional services required to return to the preadmission environment? Yes * Can the patient safely return to the preadmission environment? No * Has this patient been hospitalized within the prior 30 days at any hospital? Yes Last DP export: 05/10/18 9:15 a Patient Name: PAULINO CORREIA Page 55640 at 1022 All edits/amendments must be made on the electronic document DICTATION DATE: 05/10/18 1022 SALES EXPERT: CARL 05/10/18 1022 RPT#: [id number] DC DATE: STATUS: ADM IN [facility] [address] [place] [address] END OF REPORT
--- NOTE | 2018-05-10 10:23 | NUR ---
RESTING IN BED. FAMILY AT BEDSIDE. PROCEDURE CANCELLED FOR TODAY PER . DENIES ANY OTHER NEEDS. ORIENTED TO PERSON. CONTINUE PLAN OF CARE AND SAFETY PRECAUTIONS.
[2018-05-10 13:13] VITALS: BP 90/43
--- NOTE | 2018-05-10 14:48 | NUR ---
Nutrition follow-up: Diet: Renal Was NPO for surgery but it was canceled PO intake continues to be poor; pt refusing [facility] reviewed; pt refusing dialysis at this time Wt: 209# Family may consider hospice soon. RDN following.
--- NOTE | 2018-05-10 19:30 | NUR ---
RESUMING CARE. PT LAYING IN BED ALERT BREATH SOUNDS EVEN , LEFT HAND IV SL, LEFT FA SL, RESERVE REX, ARMS , AVF IN BOTH ARMS , RT CHEST HEMOSPLIT , BOTH FEET NERCROTIC NO C/O PAIN OT DISTRESS AT THIS TIME CL IN REACH WILL CONT TO MONIOR
[2018-05-10 21:13] VITALS: BP 125/58
[2018-05-11 01:54] VITALS: BP 124/57
--- NOTE | 2018-05-11 02:44 | NUR ---
I CONCUR WITH THIS ASSESSMENT
[2018-05-11 05:13] VITALS: BP 118/55
--- NOTE | 2018-05-11 06:16 | NUR ---
APLLIED MEPILEX TO REX. BUTTOCKS
[2018-05-11 08:18] VITALS: BP 147/63
[2018-05-11 11:13] VITALS: BP 135/64
[2018-05-11 15:24] VITALS: BP 125/56
--- NOTE | 2018-05-11 20:05 | NUR ---
RESUMING PT CARE. PT IS LAYING IN BED RESTING COMFORTABLY WITH EYES CLOSED. BED IN LOW POSITION WITH CALL LIGHT IN REACH. SIDE RAILS UP X 2. PT HAS A IV IN THE RT FOREARM AND HAS A RT HEMOSPLIT IN CHEST. WILL CONTINUE TO MONITOR PT AND FOLLOW PLAN OF CARE.
--- NOTE | 2018-05-12 06:01 | NUR ---
PT IS ALERT LAYING IN BED. NO C/O VOICED. NO ACUTE S/S OF DISTRESS NOTED. RESPIRATIONS EVEN AND UNLABORED. BED IN LOW POSITION WITH CALL LIGHT IN REACH. SIDE RAILS UP X 2. WILL CONTIUNUE TO MONITOR PT AND FOLLOW PLAN OF CARE.
--- NOTE | 2018-05-12 06:16 | NUR ---
CAMI PT'S SON CAME TO NURSING DESK LAST NIGHT AND STATED THAT THE FAMILY WANTED PT TO BE ON HOSPICE. IT HAS BEEN NOTED IN CHART THAT A DECISION WAS WAITING TO BE MADE ABOUT HOSPICE. PT WANTED DR. LAWSON TO BE AWARE OF THIS SO A CONSULT FOR HOSPICE CAN BE DONE. PT SON WAS TOLD INFORMATION WILL GIVEN TO ONCOMING NURSE AT SHIFT REPORT.
[2018-05-12 06:33] LABS: BASOPHILS 0.2 % (0-2); EOSINOPHILS 1.3 % (0-7); HEMATOCRIT 32.2 % (36.0-48.0); HEMOGLOBIN 10.1 g/dL (12-16); IMMATURE GRANULOCYTES 0.7 % (0-5); LYMPHOCYTES 7.6 % (15-50); MCH 26.4 pg (26.0-34.0); MCHC 31.4 g/dL (31.0-37.0); MCV 84.3 fL (80.0-100.0); MEAN PLATELET VOLUME 8.9 fL (7.4-10.4); NEUTROPHILS 85.2 % (40-80); PLATELET COUNT 187 10x3/uL (130-400); RBC 3.82 10x6/uL (4.00-5.40); RDW 20.8 % (11.5-14.5); WBC 13.4 10x3/uL (4.8-10.8)
[2018-05-12 06:44] LABS: CREATININE - SERUM 7.9 mg/dL (0.6-1.3)
[2018-05-12 08:06] VITALS: BP 144/57
--- NOTE | 2018-05-12 15:13 | MORECARE ---
CASE MANAGEMENT DISCHARGE SUMMARY PATIENT: PAULINO CORREIA UNIT: [id number] ADM DATE: 05/03/18 AGE: 63 : 55 SEX: F ROOM/BED: D.7760 AUTHOR: DARNELL KRAUS PHYSICIAN: REFERRING PHYSICIAN: DARCY BOYLE MD DATE OF SERVICE: 05/12/18 Discharge Plan Patient Name: PAULINO CORREIA Facility: [facility]:[place] : 1955 Planned Disposition: Anticipated Discharge Date: Discharge Date: Expected LOS: Initial Reviewer: [email or web address] Initial Review Date: 05/10/2018 Generated: 05/12/18 4:13 pm Comments DCP- Discharge Planning Updated by [id number]: Elizabeth Hernandez on 05/10/18 9:[address] Patient Name: PAULINO CORREIA Admission Status: Elective Accout number: [id number] Admission Date: 05-03-2018 : 1955 Admission Diagnosis:OTHER DISORDER OF CIRCULATORY SYSTEM Attending: Darcy Boyle Current LOS: 7 Anticipated DC Date: Planned Disposition: Primary Insurance: MEDICARE A & B Discharge Planning Comments: CM MET WITH PATIENT'S MOTHER RYLEE ABOUT PATIENTS DC PLANNING/NEEDS. SHE STATES THE PATIENT'S SONS ARE THINKING OVER IT NOW ON WHAT TO DO. THEY ARE THINKING ABOUT HOSPICE. THE PATIENT'S MOTHER STATES SHE THINKS HOSPICE WOULD BE THE BEST THING FOR HER DAUGHTER, SHE ALSO STATED SHE DOESN'T THINK HER SON'S ARE WANTING TO MAKE THE DECISION ON WHAT TO DO. CM WILL FOLLOW AND ASSIST NEEDED WITH DC PLANNING NEEDS. PATIENT'S MOTHER STATES SHE WOULD LIKE ADVICE FROM THE DOCTOR ON MAKING A DECISION. Major Donor Coordinator: Elizabeth Hernandez DCPIA - Discharge Planning Initial Assessment Updated by [id number]: Elizabeth Hernandez on 05/10/18 10:11 am * PCP CARLI * Preadmission Environment Home Alone * ADLs Independent * Equipment Cane Wheelchair * List name and contact numbers for known caregivers / representatives who currently or will assist patient after discharge: MOTHER BRAGG, * Community resources currently utilized None * Additional services required to return to the preadmission environment? Yes * Can the patient safely return to the preadmission environment? No * Has this patient been hospitalized within the prior 30 days at any hospital? Yes External Providers [facility] Provider[facility] Next Contact Date: 05/12/2018 Service Request Date: Service Type: Resolution: Reviewer: Comments: Last DP export: 05/10/18 9:22 a Patient Name: PAULINO CORREIA Page [phone] at 1513 All edits/amendments must be made on the electronic document DICTATION DATE: 05/12/18 151 PHYSICIAN OPHTHALMOLOGIST: CARL 05/12/181512 RPT#: [id number] DC DATE: STATUS: ADM IN [facility] [address] [place] [address] END OF REPORT
--- NOTE | 2018-05-12 15:23 | MORECARE ---
CASE MANAGEMENT DISCHARGE SUMMARY PATIENT: PAULINO CORREIA UNIT: [id number] ADM DATE: 05/03/18 AGE: 63 : 55 SEX: F ROOM/BED: D.1410 AUTHOR: DARNELL KRAUS PHYSICIAN: REFERRING PHYSICIAN: DARCY BOYLE MD DATE OF SERVICE: 05/12/18 Discharge Plan Patient Name: PAULINO CORREIA Facility: [facility]:[place] : 1955 Planned Disposition: Hospice Medical Facility Anticipated Discharge Date: 05/12/18 Discharge Date: Expected LOS: 9 Initial Reviewer: [id number] Initial Review Date: 05/10/2018 Generated: 05/12/18 4:23 pm Comments DCP- Discharge Planning Updated by [email or web address]: Elizabeth Hernandez on 05/10/18 9:[address] Patient Name: PAULINO CORREIA Admission Status: Elective Accout number: [id number] Admission Date: 05-03-2018 : 1955 Admission Diagnosis:OTHER DISORDER OF CIRCULATORY SYSTEM Attending: Darcy Boyle Current LOS: 7 Anticipated DC Date: Planned Disposition: Primary Insurance: MEDICARE A & B Discharge Planning Comments: CM MET WITH PATIENT'S MOTHER RYLEE ABOUT PATIENTS DC PLANNING/NEEDS. SHE STATES THE PATIENT'S SONS ARE THINKING OVER IT NOW ON WHAT TO DO. THEY ARE THINKING ABOUT HOSPICE. THE PATIENT'S MOTHER STATES SHE THINKS HOSPICE WOULD BE THE BEST THING FOR HER DAUGHTER, SHE ALSO STATED SHE DOESN'T THINK HER SON'S ARE WANTING TO MAKE THE DECISION ON WHAT TO DO. CM WILL FOLLOW AND ASSIST NEEDED WITH DC PLANNING NEEDS. PATIENT'S MOTHER STATES SHE WOULD LIKE ADVICE FROM THE DOCTOR ON MAKING A DECISION. Supply Clerk: Elizabeth Hernandez DCPIA - Discharge Planning Initial Assessment Updated by [email or web address]: Elizabeth Hernandez on 05/10/18 10:11 am * PCP CARLI * Preadmission Environment Home Alone * ADLs Independent * Equipment Cane Wheelchair * List name and contact numbers for known caregivers / representatives who currently or will assist patient after discharge: MOTHER BRAGG, * Community resources currently utilized None * Additional services required to return to the preadmission environment? Yes * Can the patient safely return to the preadmission environment? No * Has this patient been hospitalized within the prior 30 days at any hospital? Yes Last DP export: 05/12/18 2:13 p Patient Name: PAULINO CORREIA Page [phone] at 1523 All edits/amendments must be made on the electronic document DICTATION DATE: 05/12/181521 WHITEPRINTING MACHINE OPERATOR: CARL 05/12/181521 RPT#: [id number] DC DATE: STATUS: ADM IN [facility] [address] [place] [address] END OF REPORT
--- NOTE | 2018-05-12 15:30 | MORECARE ---
CASE MANAGEMENT DISCHARGE SUMMARY PATIENT: PAULINO CORREIA UNIT: [id number] ADM DATE: 05/03/18 AGE: 63 : 55 SEX: F ROOM/BED: D.8174 AUTHOR: DARNELL KRAUS PHYSICIAN: REFERRING PHYSICIAN: DARCY BOYLE MD DATE OF SERVICE: 05/12/18 Discharge Plan Patient Name: PAULINO CORREIA [facility] [facility] 1955 Planned Disposition: Hospice Medical Facility Anticipated Discharge Date: 05/12/18 Discharge Date: Expected LOS: 9 Initial Reviewer: [email or web address] Initial Review Date: 05/10/2018 Generated: 05/12/18 4:30 pm Comments DCP- Discharge Planning Updated by [id number]: Je Ferrer on 05/12/18 2:[address] Patient Name: PAULINO CORREIA Admission Status: Elective Accout number: [id number] Admission Date: 05-03-2018 : 1955 Admission Diagnosis:OTHER DISORDER OF CIRCULATORY SYSTEM Attending: Darcy Boyle Current LOS: 9 Anticipated DC Date: 05-12-2018 Planned Disposition: Hospice Medical Facility Primary Insurance: MEDICARE A & B PLANNED EXTERNAL PROVIDER: [facility] Discharge Planning Comments: CM RECEIVED HOSPICE ORDER, SPOKE TO BEDSIDE NURSE WHO SPOKE TO PT'S SON VIA PHONE AND INFORMED CM THAT SON WANTS HOSPICE "HERE". CM CALLED UDAY CORREIA, , DISCUSSED HOSPICE OPTIONS, PROVIDERS AND LOCATIONS. UDAY REPORTS HE WANTS HOSPICE WITH [facility] AT [facility]. CM DISCUSSED IMPORTANT MESSAGE FROM MEDICARE, LEFT COPY IN PT'S ROOM ALONG WITH CM CONTACT INFORMATION. UDAY REPORTS PT IS NOT , HE IS PT'S OLDEST CHILD. CM CALLED [facility], , LEFT MESSAGE FOR NATALIA REQUESTING INPATIENT HOSPICE EVALUATION AND ADMIT IF APPROPRIATE. CM FAXED REFERRAL AND HOSPICE ORDER TO [facility] AT [phone]. CM WAITING HOSPICE EVALUATION AND ADMISSION DETERMINATION FROM [facility]. Delinquent Tax Collector: Je Ferrer DCP- Discharge Planning Updated by [email or web address]: Elizabeth Hernandez on 05/10/18 9:[address] Patient Name: PAULINO CORREIA Admission Status: Elective Accout number: [id number] Admission Date: 05-03-2018 : 1955 Admission Diagnosis:OTHER DISORDER OF CIRCULATORY SYSTEM Attending: Darcy Boyle Current LOS: 7 Anticipated DC Date: Planned Disposition: Primary Insurance: MEDICARE A & B Discharge Planning Comments: CM MET WITH PATIENT'S MOTHER RYLEE ABOUT PATIENTS DC PLANNING/NEEDS. SHE STATES THE PATIENT'S SONS ARE THINKING OVER IT NOW ON WHAT TO DO. THEY ARE THINKING ABOUT HOSPICE. THE PATIENT'S MOTHER STATES SHE THINKS HOSPICE WOULD BE THE BEST THING FOR HER DAUGHTER, SHE ALSO STATED SHE DOESN'T THINK HER SON'S ARE WANTING TO MAKE THE DECISION ON WHAT TO DO. CM WILL FOLLOW AND ASSIST NEEDED WITH DC PLANNING NEEDS. PATIENT'S MOTHER STATES SHE WOULD LIKE ADVICE FROM THE DOCTOR ON MAKING A DECISION. Delinquent Tax Collector: Elizabeth Hernandez DCPIA - Discharge Planning Initial Assessment Updated by [id number]: Elizabeth Hernandez on 05/10/18 10:11 am * PCP CARLI * Preadmission Environment Home Alone * ADLs Independent * Equipment Cane Wheelchair * List name and contact numbers for known caregivers / representatives who currently or will assist patient after discharge: RYLEE DORMAN, MOTHER, * Community resources currently utilized None * Additional services required to return to the preadmission environment? Yes * Can the patient safely return to the preadmission environment? No * Has this patient been hospitalized within the prior 30 days at any hospital? Yes Coverage Notice Reviewer: [id number] Virginia Ferrer Notice Issued Date-Time: 05/12/2018 13:50 Notice Type: IM Discharge Notice Notice Delivered To: Family Member Relationship to Patient: Son Corporate Representative Name: UDAY CORREIA Delivery Method: PHONE - Phone Eli Days: Prior Verbal Notification: Recipient Understood Notice: Yes Recipient Signature: Med Rec Note Co-signed by Attending: Coverage Notice Comment: Last DP export: 05/12/18 2:23 p Patient Name: PAULINO CORREIA Page [phone] at 1530 All edits/amendments must be made on the electronic document DICTATION DATE: 05/12/18 1530 BOX PRESS OPERATOR: CARL 05/12/18 1530 RPT#: [id number] DC DATE: STATUS: ADM IN [facility] [address] [place] [address] END OF REPORT
--- NOTE | 2018-05-13 07:49 | MORECARE ---
CASE MANAGEMENT DISCHARGE SUMMARY PATIENT: PAULINO CORREIA UNIT: [id number] ADM DATE: 05/03/18 AGE: 63 : 55 SEX: F ROOM/BED: D.1320 AUTHOR: DARNELL KRAUS PHYSICIAN: REFERRING PHYSICIAN: DARCY BOYLE MD DATE OF SERVICE: 05/13/18 Discharge Plan Patient Name: PAULINO CORREIA [facility] [facility] 1955 Planned Disposition: Hospice Medical Facility Anticipated Discharge Date: 05/12/18 Discharge Date: 05/12/2018 Expected LOS: 9 Initial Reviewer: [id number] Initial Review Date: 05/10/2018 Generated: 05/13/18 8:49 am Comments DCP- Discharge Planning Updated by [id number]: Je Ferrer on 05/12/18 2:[address] Patient Name: PAULINO CORREIA Admission Status: Elective Accout number: [id number] Admission Date: 05-03-2018 : 1955 Admission Diagnosis:OTHER DISORDER OF CIRCULATORY SYSTEM Attending: Darcy Boyle Current LOS: 9 Anticipated DC Date: 05-12-2018 Planned Disposition: Hospice Medical Facility Primary Insurance: MEDICARE A & B PLANNED EXTERNAL PROVIDER[facility] Discharge Planning Comments: CM RECEIVED HOSPICE ORDER, SPOKE TO BEDSIDE NURSE WHO SPOKE TO PT'S SON VIA PHONE AND INFORMED CM THAT SON WANTS HOSPICE "HERE". CM CALLED UDAY CORREIA, , DISCUSSED HOSPICE OPTIONS, PROVIDERS AND LOCATIONS. UDAY REPORTS HE WANTS HOSPICE WITH [facility] AT [facility]. CM DISCUSSED IMPORTANT MESSAGE FROM MEDICARE, LEFT COPY IN PT'S ROOM ALONG WITH CM CONTACT INFORMATION. UDAY REPORTS PT IS NOT , HE IS PT'S OLDEST CHILD. CM CALLED [facility], , LEFT MESSAGE FOR NATALIA REQUESTING INPATIENT HOSPICE EVALUATION AND ADMIT IF APPROPRIATE. CM FAXED REFERRAL AND HOSPICE ORDER TO [facility] AT [phone]. CM WAITING HOSPICE EVALUATION AND ADMISSION DETERMINATION FROM [facility]. Topographical Engineer: Je Ferrer DCP- Discharge Planning Updated by [id number]: Elizabeth Hernandez on 05/10/18 9:[address] Patient Name: PAULINO CORREIA Admission Status: Elective Accout number: [id number] Admission Date: 05-03-2018 : 1955 Admission Diagnosis:OTHER DISORDER OF CIRCULATORY SYSTEM Attending: Darcy Boyle Current LOS: 7 Anticipated DC Date: Planned Disposition: Primary Insurance: MEDICARE A & B Discharge Planning Comments: CM MET WITH PATIENT'S MOTHER RYLEE ABOUT PATIENTS DC PLANNING/NEEDS. SHE STATES THE PATIENT'S SONS ARE THINKING OVER IT NOW ON WHAT TO DO. THEY ARE THINKING ABOUT HOSPICE. THE PATIENT'S MOTHER STATES SHE THINKS HOSPICE WOULD BE THE BEST THING FOR HER DAUGHTER, SHE ALSO STATED SHE DOESN'T THINK HER SON'S ARE WANTING TO MAKE THE DECISION ON WHAT TO DO. CM WILL FOLLOW AND ASSIST NEEDED WITH DC PLANNING NEEDS. PATIENT'S MOTHER STATES SHE WOULD LIKE ADVICE FROM THE DOCTOR ON MAKING A DECISION. Topographical Engineer: Elizabeth Hernandez DCPIA - Discharge Planning Initial Assessment Updated by [id number]: Elizabeth Hernandez on 05/10/18 10:11 am * PCP CARLI * Preadmission Environment Home Alone * ADLs Independent * Equipment Cane Wheelchair * List name and contact numbers for known caregivers / representatives who currently or will assist patient after discharge: RYLEE DORMAN, MOTHER, * Community resources currently utilized None * Additional services required to return to the preadmission environment? Yes * Can the patient safely return to the preadmission environment? No * Has this patient been hospitalized within the prior 30 days at any hospital? Yes Coverage Notice Reviewer: [id number] Virginia Ferrer Notice Issued Date-Time: 05/12/2018 13:50 Notice Type: IM Discharge Notice Notice Delivered To: Family Member Relationship to Patient: Son Resident Athletic Trainer Name: UDAY CORREIA Delivery Method: PHONE - Phone Eli Days: Prior Verbal Notification: Recipient Understood Notice: Yes Recipient Signature: Med Rec Note Co-signed by Attending: Coverage Notice Comment: Last DP export: 05/12/18 2:30 p Patient Name: PAULINO CORREIA Page [phone] at 0749 All edits/amendments must be made on the electronic document DICTATION DATE: 05/13/18747 FOOD SERVICE EMPLOYEE: CARL 05/13/1848 RPT#: [id number] DC DATE:05/12/18 STATUS: DIS IN [facility] [address] [place] [address] END OF REPORT
== END 2018-05-12 20:22 | disposition hospice, inpatient (51) | DRG 299 ==
LOC: D.M2 14:38
PROVIDERS: ADMIT Internal Medicine Nephrology; ATTEND Internal Medicine Nephrology
DX: I96 Gangrene, not elsewhere classified (principal); N18.6 End stage renal disease; I12.0 Hypertensive chronic kidney disease with stage 5 chronic kidney disease or end stage renal disease; I99.8 Other disorder of circulatory system; R41.0 Disorientation, unspecified; R58 Hemorrhage, not elsewhere classified; D73.5 Infarction of spleen; Z86.73 Personal history of transient ischemic attack (TIA), and cerebral infarction without residual deficits; Z86.718 Personal history of other venous thrombosis and embolism

== ENCOUNTER 2018-05-12 20:14 | Inpatient (IN) | payer OTHER ==
[2018-05-12 20:00] VITALS: BP 100/38
[~2018-05-12 20:14] MED LIST changes: +BUPRENEX IV
--- NOTE | 2018-05-13 00:21 | NUR ---
PT IS NOW ON HOSPICE. PT IS LAYING IN BED RESTING COMFORTABLY WITH EYES CLOSED. PT IS EASY TO AROUSE. ASK PT IF SHE WAS HAVING ANY PAIN AND SHE STATES SHE IS NOT HAVING ANY PAIN. NO ACUTE S/S OF DISTRESS. WILL CONTINUE TO MONITOR PT AND FOLLOW PLAN OF CARE.
[2018-05-13 00:30] VITALS: BP 103/53
[2018-05-13 04:00] VITALS: BP 96/42
--- NOTE | 2018-05-13 07:42 | NUR ---
REPORT RECEIVED. WILL CONTINUE WITH POC. PT CURRENTLY LYING SEMI FOWLERS. CALL LIGHT W/I REACH. PT IS AA BUT CONFUSED TO SITUATION. RR EVEN AND UNLABORED ON RA. R.FOR PIV IS SALINE LOCKED. PT DENIES ANY NEEDS AT THIS TIME. NO S/S OF DISTRESS NOTED. WILL CTM.
--- NOTE | 2018-05-13 07:50 | MORECARE ---
CASE MANAGEMENT DISCHARGE SUMMARY PATIENT: PAULINO CORREIA UNIT: [id number] ADM DATE: 05/12/18 AGE: 63 : 55 SEX: F ROOM/BED: D.2110 AUTHOR: DARNELL KRAUS PHYSICIAN: REFERRING PHYSICIAN: KUMAR SANDHU MD DATE OF SERVICE: 05/13/18 Discharge Plan Patient Name: PAULINO CORREIA Facility: [facility]:[place] : 1955 Planned Disposition: Anticipated Discharge Date: Discharge Date: Expected LOS: Initial Reviewer: [email or web address] Initial Review Date: 05/13/2018 Generated: 05/13/18 8:50 am Comments DCP- Discharge Planning Updated by [id number]: Je Ferrer on 05/13/18 6:[address] Patient Name: PAULINO CORREIA Admission Status: Elective Accout number: [id number] Admission Date: 05-12-2018 : 1955 Admission Diagnosis: Attending: KUMAR SANDHU Current LOS: 1 Anticipated DC Date: Planned Disposition: Primary Insurance: [facility] PLANNED EXTERNAL PROVIDER[facility] Discharge Planning Comments: CHART REVIEWED. PT ADMITTED TO INPATIENT HOSPICE LAST EVENING WITH [facility]. ALL CASE MANAGEMENT SERVICES PROVIDED BY [facility]. Client Specialist: Je Ferrer Patient Name: PAULINO CORREIA Page [phone] at 0750 All edits/amendments must be made on the electronic document DICTATION DATE: 05/13/18 075 CHEMICAL TECHNICIAN: CARL 05/13/18 0750 RPT#: [id number] DC DATE: STATUS: ADM IN [facility] [address] [place] [address] END OF REPORT
[2018-05-13 09:46] VITALS: BP 84/39
--- NOTE | 2018-05-13 10:11 | NUR ---
THE HOSPICE NURSE INFORMED ME THAT IN ORDER TO MAINTAIN INPATIENT HOSPICE, THAT I WOULD BE FORCED TO PLACE PATIENT ON DILUADID BIOLOGY FACULTY MEMBER IN SPITE OF MINIMAL PAIN AND FACIAL GRIMACING. SPOKE WITH SPIKE CURRAN WHO ORDERED DILUADID BIOLOGY FACULTY MEMBER AT 0.2MG/Q10MIN/4MG 4HOUR LOCKOUT. WILL SET UP BIOLOGY FACULTY MEMBER AND TEACH PT ABOUT USING THE BUTTON. WILL CLOSELY MONITOR.
--- NOTE | 2018-05-13 10:56 | NUR ---
WHEN RECEIVING REPORT. [facility] NURSE STATED THAT THE PT WAS NOT IN PAIN THROUGHOUT THE NIGHT THEREFORE SHE DID NOT START THE ALLERGIST IMMUNOLOGIST. THE ALLERGIST IMMUNOLOGIST WAS STARTED PER PHYSICIAN ORDERS THIS AM @0.2/4 VIA L.HAND PIV ALONG WITH NS INFUSING @30ML/HR. WILL CTM. PT STATES THAT SHE IS IN GENERALIZED PAIN LEVEL 7/10.
--- NOTE | 2018-05-13 12:21 | NUR ---
PT HAD LARGE LOOSE LIGHT BROWN BM. CLEANED PT AND APPLIED NEW LINEN. LARGE SACRAL DRESSING WAS SATURATED. REMOVED DRESSING AND CLEANED WITH WOUND CLEANSER AND PATTED DRY. NOTICED SMALL 1INX0.5IN IRREGULAR BORDER TEAR, STAGE 2, NO DRAINAGE PRESENT. APPLIED LARGE SACRAL DRESSING OVER WOUND AND SACRUM. PT DENIES ANY NEEDS. CONTINUAL EDUCATION PRESENTED TO PT ON QUALITY CLOTH TESTER PUMP. WILL CTM.
--- NOTE | 2018-05-13 16:25 | NUR ---
DILUADID ENROLLER CHANGED TO CONTINUOUS 0.5MG/HR VIA L.HAND PIV. PT IS AWAKE AND ALERT. RR EVEN AND UNLABORED. NO S/S DISTRESS NOTED. WILL CTM.
--- NOTE | 2018-05-13 17:57 | NUR ---
Dialysis Coordinator: RICCARDO ROLLINS TTS @ 11:00am. JOSEFINA LOWE.
--- NOTE | 2018-05-13 18:15 | NUR ---
PT CURRENTLY LYING SUPINE. CALL LIGHT W/I REACH. RR EVEN AND UNLABORED ON RA. PT IS RESTING AT THE MOMENT. NO S/S OF DISTRESS NOTED. DILUADID VENEER MARKER INFUSING CONTINUOUS @0.5MG/HR VIA L.HAND PIV ALONG WITH NS @30ML/HR. WILL CTM. WILL PASS REPORT AND CONTINUE WITH POC.
--- NOTE | 2018-05-13 19:50 | NUR ---
RESUMING PT CARE. PT LAYING IN BED RESTING COMFORTABLY WITH EYES CLOSED. PT IS ON HOSPICE. NO ACUTE S/S OF DISTRESS. BED IN LOW POSITION WITH CAll LIGHT IN REACH. WILL CONTINUE TO MONITOR PT AND FOLLOW PLAN OF CARE.
[2018-05-13 20:00] VITALS: BP 105/45
[2018-05-14 00:30] VITALS: BP 100/48
--- NOTE | 2018-05-14 02:58 | NUR ---
IV infusing, has Dilaudid CROP CONSULTANT for pain management. Eyes closed, respirations unlabored, no signs of distress, deemed to be sleeping.
--- NOTE | 2018-05-14 08:14 | NUR ---
ROUNDING DONE WITH PATIENT BEING ON 1ST STEP OVERLAY MATTRESS. HOSPICE, DNR CODE STATUS. LEFT HAND PIV SEEN WITH NS INFUSING AT 30 CC/HR ALONG WITH HIRED HAND DILAUDID CONT. 0.5 MG FOR PAIN CONTROL. THERE IS ALSO A LEFT FA PIV SALINE LOCK SEEN. RIGHT CHEST HEMISPILT SEEN WITH C/D/I DRESSING. BILATERAL LEGS ARE DISCOLORED AND BILATERAL FEET WITH ALL TOES NECROTIC. WILL FINISH ASSESSMENT SHORTLY.
[2018-05-14 09:13] VITALS: BP 98/50
--- NOTE | 2018-05-14 10:10 | NUR ---
AUTOMOTIVE SALES MANAGER DILAUDID CHANGED OUT IT IS EMPTY. WHEN ASKED, PATIENT STATES THAT HER FEET AND TOES HAVE BEEN BLACK FOR APPROX. 6 WEEKS.
--- NOTE | 2018-05-14 12:36 | NUR ---
PATIENT TURNED WITH ASSISTANCE FROM [facility] HOSPICE NURSE WHO IS SEEING HER NOW. NOTED TO BOTTOM IS LARGE SACRAL DRESSING, C/D/I TO COCCYX. LARGE DISTENDED ABDOMEN BUT NOTED IN NOTES THERE WAS A BM YESTERDAY. TURNED TO RIGHT SIDE WITH PILLOW BEHIND BACK FOR COMFORT. CALL LIGHT AND BARBER STYLIST PAIN PUMP IN LAP.
--- NOTE | 2018-05-14 13:05 | NUR ---
PATIENT IS MOANING SOME. I ASKED HER IF I COULD GIVE HER A BOLUS OF HER PAIN MEDICATION. SHE REPLIED, " I KNOW YOU ARE PLAYING YOUR PART WELL". I REPLIED THAT I WAS TRYING TO HELP HER WITH HER PAIN. SHE REPLIED, "NOT RIGHT NOW".
--- NOTE | 2018-05-14 13:13 | NUR ---
PATIENT IS STILL MOANING, CASHIER CREDIT BOLUS OF 0.4 MG GIVEN. SEE FLOWSHEET.
--- NOTE | 2018-05-14 13:46 | NUR ---
APPEARS PAINFREE, NO MOANING AT THIS TIME. RESP ARE EVEN, EYES CLOSED. WILL CONTINUE TO MONITOR.
--- NOTE | 2018-05-14 16:25 | NUR ---
LAYING ON RIGHT SIDE CURLED UP INTO POSITION. DENIES NEEDS AT THIS TIME. FAMILY IS AT BEDSIDE.
--- NOTE | 2018-05-14 16:28 | NUR ---
RESTING WITH EYES CLOSED, RESP ARE EVEN AND NON LABORED. APPEARS TO BE PAINFREE AT THIS TIME.
--- NOTE | 2018-05-14 19:29 | NUR ---
RECEIVED REPORT, ROUNDING WITH DAYSHIFT NURSE DONE. PATIENT ALERT/AWAKE REQUESTING ICE. RR EVEN U/L ON ROOM AIR. NO OTHER NEEDS DONE. LEFT DOOR OPEN TO MONITOR CLOSELY.
--- NOTE | 2018-05-14 19:40 | NUR ---
STATED PAIN LEVEL AT 10 OF HER FEET/TOES. ADMIN RESOURCE MANAGEMENT PLANNER DILAUDID BOLUS 0.4MG IV. REQUESTED ANOTHER CUP OF ICE.
[2018-05-14 20:00] VITALS: BP 93/50
--- NOTE | 2018-05-15 04:30 | NUR ---
ASSISTED NEGOTIATOR WITH REPOSITIONING. MEPILEX DRSG ON BUTTOCK C/D/I. APPLIED CETAPHIL LOTION TO BACK, HIPS AND LEGS FOR DRY SCALY SKIN.
--- NOTE | 2018-05-15 07:13 | NUR ---
ROUNDING DONE WITH LAUNCH CHECK OUT DILAUDID BEING EMPTY. CHANGED OUT WITH TIMOTHY HOLLOWAY. ON HOSPICE. 1ST STEP OVERLAY MATTRESS IN USE. IV OF NS INFUSING AT 30 CC/HR TO LEFT HAND, LEFT FA PIV SEEN WITH SALINE LOCK, ORANGE SWAB CAPS IN USE. BLACK TOES, ISCHEMIC FEET. DISTENDED ABDOMEN SEEN. WILL MONITOR FOR PAIN CONTROL AND CPOC.
--- NOTE | 2018-05-15 08:13 | NUR ---
PATIENT REFUESED TO HAVE VITAL SIGNS TAKEN.
--- NOTE | 2018-05-15 09:43 | NUR ---
MAR WITH [facility] HERE TO SEE PATIENT.
--- NOTE | 2018-05-15 12:27 | NUR ---
[facility] PLACED IN BSC FOR URINE SPECIMEN. INSTRUCTED TO NOTIFY STAFF WHEN OBTAINED. FAMILY AT BEDSIDE.
--- NOTE | 2018-05-15 13:56 | NUR ---
RESTING WITH EYES CLOSED, RESP ARE EVEN. APPEARS TO BE PAINFREE. WILL CONTINUE TO MONITOR AND ASSESS
--- NOTE | 2018-05-15 17:44 | NUR ---
PATIENT NOT WANTING TO EAT OR DRINK, WANTS ICE. GIVEN.
--- NOTE | 2018-05-15 17:59 | NUR ---
PATIENT HAS NOT EATEN THIS SHIFT OR DRANK, JUST SEVERAL ICE CUBES.
--- NOTE | 2018-05-15 19:41 | NUR ---
AWAKE ORIENTED TO NAME//[facility] ONLY. CANNOT STATE REASON SHE IS HERE. RR 18 EVEN U/L ON RA. IV IN L HAND WITH NS INFUSING AT 30ML/HR AND HOME OFFICE CLAIMS EXAMINER DILAUDID AT 0.75MG/HR CONT FOR PAIN CONTROL. ON 1ST MATTRESS. DENIES PAIN. REQUESTED SOME ICE. LEFT DOOR OPEN TO MONITOR CLOSELY.
[2018-05-15 20:00] VITALS: BP 146/47
--- NOTE | 2018-05-15 22:45 | NUR ---
PLACED SCOPOLAMINE PATCH BEHIND RT EAR. NO S/S OF PAIN OR DISCOMFORT. OPENED EYES WHEN SPOKEN TO. STATED NO TO INQUIREY ABOUT ANY NEEDS.
--- NOTE | 2018-05-16 00:44 | NUR ---
RESTING WITH EYES CLOSED. RR 16 EVEN UNLABORED. NO S/S OF DISCOMFORT.
--- NOTE | 2018-05-16 05:35 | NUR ---
OPEN EYES AND STATED "NO" TO INQUIRY ABOUT ANY DISCOMFORTS OR NEEDS.
--- NOTE | 2018-05-16 07:38 | NUR ---
REPORT RECEIVED. WILL CONTINUE WITH POC. PT CURRENTLY LYING SUPINE. CALL LIGHT W/I REACH. PT IS RESTING AT THE MOMENT. RR EVEN AND UNLABORED ON RA. NS INFUSING @30ML/HR AND DILUADID PHOTO FINISHER INFUSING CONTINUOUS @0.75MG/HR VIA L.HAND PIV. NO S/S OF DISTRESS NOTED. WILL CTM.
[2018-05-16 08:46] VITALS: BP 79/46
--- NOTE | 2018-05-16 10:34 | NUR ---
PT CURRENTLY LYING SEMI FOWLERS. CALL LIGHT W/I REACH. PT RESPONDS APPROPRIATELY TO QUESTIONS AND DENIES ANY NEEDS. WILL CTM.
--- NOTE | 2018-05-16 11:10 | NUR ---
Dialysis Coordinator: Patient has elected for Hospice care. OPHD unit notified. JOSEFINA LOWE.
--- NOTE | 2018-05-16 16:10 | NUR ---
RECEIVED ORDERS FOR CONTINUOS DILUADID MDS NURSE @0.75MG/HR. PREVIOUS MEDICATION ORDER FELL OFF. RENEWED ORIGINAL ORDER AND PLACED NEW SYRINGE IN MDS NURSE INFUSING CONTINUOUS @0.75MG/HR OR 1.88ML/HR VIA L.HAND PIV. PT RESPONDS TO VERBAL COMMANDS AND WILL RESPOND APPROPRIATELY. PT DENIES ANY NEEDS. RR EVEN AND UNLABORED. WILL CTM.
--- NOTE | 2018-05-16 19:31 | NUR ---
AWAKENS EASILY. STATED "I WAS HAVING A GOOD NAP". ORIENTED X 2 TO PERSON, PLACE. RR 16 EVEN U/L ON ROOM AIR. IV IN L HAND WITH POWER EQUIPMENT MECHANICS INSTRUCTOR DILAUDID CONT FOR PAIN CONTROL. DENIES PAIN OR ANY NEEDS. LEFT DOOR OPEN TO MONITOR CLOSELY.
[2018-05-16 20:00] VITALS: BP 184/109
--- NOTE | 2018-05-16 23:08 | NUR ---
NO CHANGES NOTED. OPENS EYES TO VOICE COMMANDS. DENIES PAIN OR ANY NEEDS.
--- NOTE | 2018-05-17 03:23 | NUR ---
RESTING QUIETLY WITH EYES CLOSED. RR 16 EVEN U/L. NO S/S OF PAIN OR DISCOMFORT.
--- NOTE | 2018-05-17 05:00 | NUR ---
KETTLE COORDINATOR'S GAVE A BATH. MEPILEX DRSG TO BUTTOCK C/D/I.
--- NOTE | 2018-05-17 05:58 | NUR ---
TOOK A FEW SIPS OF WATER. DENIES PAIN OR ANY OTHER NEEDS.
--- NOTE | 2018-05-17 07:30 | NUR ---
RECEIVED PT IN BED EYES CLOSED AROUSES TO SPEECH RESP UNLABORED NAD NOTED
[2018-05-17 08:00] VITALS: BP 97/46
[2018-05-17 12:00] VITALS: BP 101/62
[2018-05-17 12:30] VITALS: Ht 157.5 cm
[2018-05-17 16:00] VITALS: BP 100/69
--- NOTE | 2018-05-17 19:12 | NUR ---
INTRODUCED SELF TO PATIENT, PATIENT RESTING WITH EYES CLOSED. RESP EVEN AND UNLABORED, BED IN LOWEST POSITION, CALL LIGHT IN REACH. POULTRY VACCINATOR PUMP GOING. WILL CONTINUE TO OBSERVE.
[2018-05-17 20:00] VITALS: BP 105/48
[2018-05-18 09:54] VITALS: BP 89/50
--- NOTE | 2018-05-18 12:46 | NUR ---
I have reviewed this patient and I concur with the Shift Assessment completed by the Licensed Practical Nurse today this shift.
--- NOTE | 2018-05-18 13:41 | NUR ---
WENT INTO PTS ROOM TO GO OVER DISCHARGE INSTRUCTIONS WITH PTS . REFUSED TO SIGN ANY PAPERS AT THIS TIME. STATES HE WANTS TO APPEAL HER DISCHARGE TO MEDICARE HE DOES NOT FEEL SHE IS READY TO BE DISCHARGED.
--- NOTE | 2018-05-18 13:52 | NUR ---
HOSPICE NURSE HERE TO VISIT PT AND REQUESTED A BOLUS DOSE OF DILAUDID AND A DOSE ATIVAN DUE TO BEING RESTLESS, SCRATCHING BELLY, MOANING IF TRYING TO MOVE FOR ASSESSMENT. MEDICATION GIVEN.
[2018-05-18 14:10] VITALS: BP 106/32
--- NOTE | 2018-05-18 19:46 | NUR ---
INTRODUCED SELF TO PATIENT, PATIENT EYES CLOSED, RESTING QUIETLY. RESP EVEN AND UNLABORED.
[2018-05-18 20:00] VITALS: BP 97/38
--- NOTE | 2018-05-19 08:05 | NUR ---
RESUMING PT CARE, PT IS LAYING IN BED WITH EYES CLOSED, RESPIRATIONS EVEN AND UNLABORED. CALL LIGHT IN REACH, WILL CONTINUE TO MONITOR AND FOLLOW PLAN OF CARE.
[2018-05-19 09:19] VITALS: BP 95/36
--- NOTE | 2018-05-19 15:46 | NUR ---
I have reviewed this patient and I concur with the Shift Assessment completed by the Licensed Practical Nurse today this shift.
--- NOTE | 2018-05-19 20:13 | NUR ---
EVENING ROUNDS COMPLETED. REPORT RECEIVED. PT LYING IN BED WITH EYES CLOSED, RR EVEN AND SHALLOW. NO S/S OF DISTRESS. PT DOES NOT MAKE RESPONSE TO VOICE. BED IN LOW POSITION. SIDE RAILS UP X2. CALL LIGHT IN REACH. WILL CTM.
--- NOTE | 2018-05-19 23:21 | NUR ---
ADMINISTERED ORDERED SUPPOSITORY FOR PT TEMPERATURE OF 101.1 WILL CTM
--- NOTE | 2018-05-20 00:50 | NUR ---
DILAUDID JET INSPECTOR SYRINGE REPLACED. WILL CTM.
--- NOTE | 2018-05-20 04:37 | NUR ---
I have reviewed this patient and I concur with the Shift Assessment completed by the Licensed Practical Nurse today this shift.
--- NOTE | 2018-05-20 07:24 | NUR ---
RESUMING PT CARE, PT IS LAYING IN BED WITH EYES CLOSED, RESPIRATIONS EVEN AND UNLABORED. CALL LIGHT IS IN REACH, WILL CONTINUE TO MONITOR AND FOLLOW PLAN OF CARE.
--- NOTE | 2018-05-20 11:50 | NUR ---
I have reviewed this patient and I concur with the Shift Assessment completed by the Licensed Practical Nurse today this shift.
--- NOTE | 2018-05-20 13:40 | NUR ---
PER HOSPICE INCREASE DILAUDID FORGE HEATER TO 1.5 MG/HR FROM 1 MG/HR. ORDER NOTED.
[2018-05-20 17:26] VITALS: BP 145/84
[2018-05-20 17:36] VITALS: BP 139/85
--- NOTE | 2018-05-20 19:32 | NUR ---
EVENING ROUNDS COMPLETED. REPORT RECEIVED. PT LYING IN BED WITH EYES CLOSED, RR EVEN AND UNLABORED. DOES NOT AROUSE TO VOICE. BED IN LOW POSITION. NO S/S OF DISTRESS. SIDE RAILS UP X2. CALL LIGHT IN REACH. DILAUDID ETL CONSULTANT INFUSING ORDERED. WILL CTM.
--- NOTE | 2018-05-20 20:32 | NUR ---
HYDROMORPHONE OCCUPATIONAL THERAPIST ASSISTANTS TUBE REPLACED. NO WASTE FROM OLD TUBE. WITNESSED BY CRISTINA SCHAFER RN.
[2018-05-20 21:17] VITALS: BP 89/27
--- NOTE | 2018-05-21 02:32 | NUR ---
I have reviewed this patient and I concur with the Shift Assessment completed by the Licensed Practical Nurse today this shift.
--- NOTE | 2018-05-21 04:42 | NUR ---
HYDROMORPHONE SPINNING OPERATOR CANNISTER REPLACED, NO WASTE REMAINING FROM OLD CANNISTER
[2018-05-21 07:56] VITALS: BP 79/25
--- NOTE | 2018-05-21 11:12 | NUR ---
PATIENT IS RESTING QUIETLY . FAMILY IS AT BEDSIDE. COMFORT CARE MAINTAINED AT ORDERED PER HOSPICE ORDERS.
--- NOTE | 2018-05-21 13:41 | NUR ---
PATIENT IS RESTING QUIETLY AT THIS TIME. FAMILY AT BEDSIDE.
--- NOTE | 2018-05-21 15:25 | NUR ---
PATIENT IS RESTING QUIETLY AT THIS TIME. TOES ARE BLACK AND NECROTIC. NO PULSE FOUND IN FEET BILATERALLY. RIGHT KNEE IS LOOKING PURPLE .
--- NOTE | 2018-05-21 16:11 | NUR ---
HOSPICE NURSE IS HERE. ADJUSTED PATIENT IN BED. REMOVED IV FROM PATIENT RIGHT HAND BECAUSE IT WAS NO LONGER PATENT. CATHETER INTACT. PATIENT TOLERATED. CALLING FAMILY NOW TO REQUEST THAT THE PAIN MEDICINE BE INCREASED. PATIENT IS MOVING AROUND SOME, AND OPENED HER EYES WHEN WE ADJUSTED HER. SHE IS RESTING QUIETLY AT THIS TIME. TEMP IS 100.7 HOWEVER FAMILY REQUEST THAT THE TEMP NOT BE TREATED. HOSPICE NURSE AGREES THAT IF THE PATIENT SWEATS OFF SOME OF THE EXCESS FLUID IT WOULD HELP THE PATIENT, AND GIVING HER TYLENOL WILL NOT HAVE ENOUGH BENIFIT FOR THE DISCOMFORT TO THE PATIENT.
--- NOTE | 2018-05-21 19:52 | NUR ---
EVENING ROUNDS COMPLETED. REPORT RECEIVED. PT LYING IN BED WITH EYES CLOSED, RR EVEN AND UNLABORED. BED IN LOW POSITION. NO S/S OF DISTRESS. PT DOES NOT OPEN EYES. CALL LIGHT IN REACH. WILL CTM.
--- NOTE | 2018-05-21 20:08 | NUR ---
HYDROMORPHONE ASSISTANT DEAN CANNISTER REPLACED, 5 MLS WASTED FROM OLD CANNISTER. WASTE WITNESSED BY TARYN AANYA RN.
[2018-05-21 20:33] VITALS: BP 73/28
--- NOTE | 2018-05-22 01:15 | NUR ---
PT LYING IN BED WITH EYES CLOSED, RR EVEN AND UNLABORED. NO S/S OF DISTRESS. BED IN LOW POSITION. CALL LIGHT IN REACH. WILL CTM.
--- NOTE | 2018-05-22 02:14 | NUR ---
HYDROMORPHONE EDITOR MAGAZINE CANNISTER REPLACED, NO WASTE REMAINING FROM OLD CANNISTER. WITNESSED BY ALEJANDRA MASCORRO LPN.
--- NOTE | 2018-05-22 04:15 | NUR ---
PT LYING IN BED WITH EYES CLOSED, RR EVEN AND UNLABORED. NO S/S OF DISTRESS NOTED. WILL CTM.
--- NOTE | 2018-05-22 07:00 | NUR ---
RECEIVED BEDSIDE SHIFT REPORT. ASSUMED CARE OF PATIENT. PATIENT RESTING IN BED WITH EYES CLOSED. NO RESPIRATORY DISTRESS, ON RA. 1ST STEP OVERLAY PATENT. CALL LIGHT PLACED WITHIN REACH. COMFORT CARE PROVIDED.
[2018-05-22 08:03] VITALS: BP 91/29
--- NOTE | 2018-05-22 08:04 | NUR ---
I have reviewed this patient and I concur with the Shift Assessment completed by the Licensed Practical Nurse today this shift.
--- NOTE | 2018-05-22 09:04 | NUR ---
NEW DILAUDID SYRINGE PLACED IN PAPER RECLAIMING MACHINE OPERATOR PUMP AT THIS TIME. PATIENT TURNED AND REPOSITIONED.
--- NOTE | 2018-05-22 14:52 | NUR ---
NEW APPRAISER LAND SYRINGE PLACED TO APPRAISER LAND PUMP AT THIS TIME. NO DISTRESS.
--- NOTE | 2018-05-22 16:40 | NUR ---
RESTING PEACEFULLY. OPEN EYES TO VERBAL CUES. CALL LIGHT WITHIN REACH. NO DISTRESS.
--- NOTE | 2018-05-22 17:45 | NUR ---
SPOKE WITH PATIENT MOM, MRS. DORMAN, TO PROVIDE AN UPDATE ON HOW PATIENT IS DOING. NO SIGNIFICANT CHANGES THIS SHIFT. PATIENT'S MOTHER THANKED THIS NURSE FOR ALL CARES RENDERED.
--- NOTE | 2018-05-22 19:37 | NUR ---
EVENING ROUNDS COMPLETED. REPORT RECEIVED. PT SITTING UP IN BED WITH EYES CLOSED, RR EVEN AND UNLABORED. NO S/S OF DISTRESS. DILAUDID FILLER MIXER INFUSING ORDERED THROUGH RIGHT CHEST HEMOSPLIT. BED IN LOW POSITION. CALL LIGHT IN REACH. SIDE RAILS UP X2. WILL CTM.
[2018-05-22 19:55] VITALS: BP 79/21
--- NOTE | 2018-05-22 21:19 | NUR ---
REPLACED HYDROMORPHONE HEAT TREATER APPRENTICE CANNISTER. NO WASTE REMAINING IN OLD CANNISTER
--- NOTE | 2018-05-23 01:30 | NUR ---
I have reviewed this patient and I concur with the Shift Assessment completed by the Licensed Practical Nurse today this shift.
--- NOTE | 2018-05-23 03:16 | NUR ---
HYDROMORPHONE CANNISTER REPLACED IN GEAR GRINDER. NO WASTE REMAINING FROM OLD CANNISTER
--- NOTE | 2018-05-23 05:48 | NUR ---
17.7 MLS LEFT IN DILAUDID ELECTRICAL LINESWORKER, PT SITTING UP IN BED WITH EYES CLOSED, RR EVEN AND UNLABORED. BED IN LOW POSITION. NO S/S OF DISTRESS. CALL LIGHT IN REACH. WILL CTM.
--- NOTE | 2018-05-23 08:00 | NUR ---
RECIEVED BEDSIDE REPORT. AM ROUNDS COMPLETED. PT NOT ORIENTED TO TIME, PLACE AND SITUATION, PT MUTE AT THIS TIME. RESPOND TO VOICE. WARP WORKER INFUSING 2MG CONTINUOUS PER PROVIDER'S ORDER. BILAT LOWER LEGS NECROTIC. PT ON OVERLAY MATRESS, MEPILEX TO COCCYX AND SCOPOLOMINE PATCH BEHIND LEFT EAR. PT RIGHT CHEST HEMISPLIT INTACT. WILL CPOC. CL IN REACH, BED IN LOW, SR UP X2. WILL CTM.
[2018-05-23 09:11] VITALS: BP 137/62
--- NOTE | 2018-05-23 11:00 | NUR ---
MÓNICA FRENCH FROM [facility] IN PT ROOM, EVALUATING PT. BOLUS DILAUDID GIVEN AT THIS TIME. PT CURRENTLY RESTING IN BED, STILL MUTE, BREATHING THROUGH HER MOUTH. WILL CTM.
[2018-05-23 20:54] VITALS: BP 68/20
[2018-05-24 05:53] VITALS: BP 88/37
--- NOTE | 2018-05-24 07:38 | NUR ---
PT LAYING IN BED, DISCOMFORT NOTED. NIGHT NURSE GAVE PT A 0.4MG BOLUS OF MORPHINE VIA ROTARY CUTTER FEEDER TO R SUBCLAVIAN. ROOM AIR. LUNG SOUNDS DIMINISHED. FEET ESCHEMIC. HANDS COLD. NO FURTHER CONCERNS AT THIS TIME. WILL CPOC. BED LOWERED AND LOCKED. CL IN REACH.
--- NOTE | 2018-05-24 10:23 | NUR ---
BARREL RIFLER BUTTON REFILLED. INFORMED FAMILY THAT PT GOT SCHEDULED ATIVAN AT 0830 THIS AM.
--- NOTE | 2018-05-24 13:40 | NUR ---
PT LABORED BREATHING. SPO2 74% PULSE 37 VIA PULSE OX. UNABLE TO OBTAIN ACCURATE MANUAL PULSE.
--- NOTE | 2018-05-24 13:42 | NUR ---
SPOKE WITH RICKI FROM [facility]. INFOMRED HIM OF PATIENT STATUS. HE STATED THAT HE WOULD LET PT NURSE KNOW AND SHE WOULD MOST LIKELY WANT TO COME CHECK ON PT. NO FURTHER ORDERS AT THIS TIME.
--- NOTE | 2018-05-24 14:26 | NUR ---
I have reviewed this patient and I concur with the Shift Assessment completed by the Licensed Practical Nurse today this shift.
--- NOTE | 2018-05-24 15:45 | NUR ---
PT RESPIRATIONS 22, PULSE 106. BREATHING SHALLOW AND RAPID
--- NOTE | 2018-05-24 19:10 | NUR ---
INTRODUCED SELF TO PATIENT, PATIENT BREATHING LABORED WITH GRUNTING. HOSPICE NURSE NOTIFIED.
--- NOTE | 2018-05-24 20:06 | NUR ---
HOSPICE NURSE AT BEDSIDE, DR. SANDHU ORDERED 2.8MG(7ML)/HR CASKET TRIMMER WITH Q3 BOLUS OF 1MG. WANTED BOLUS OF 2MG IMMEDIATELY DUE TO PT BEING AIR HUNGRY. PATIENT BREATHING LABORED WITH PERIODS OF APNEA. RESPONDS ONLY TO STIMULI.
[2018-05-24 20:35] VITALS: BP 143/51
--- NOTE | 2018-05-24 22:00 | NUR ---
RECEIVED ORDERS TO PLACE PT NPO PER FAMILY REQUEST. PATIENT NOT EATING, FAMILY DOESN'T WANT TRAYS SITTING.
[2018-05-25 05:08] VITALS: BP 115/48
--- NOTE | 2018-05-25 09:10 | NUR ---
ATIVAN GIVEN ORDERED. ALSO GAVE ATROPINE DROP AND 0.4MG OF DIALUDID BOLUS FOR AIR HUNGER. PT HAS EYES CLOSED BUT WILL OPEN THEM TO VOICE. PT NONVERBAL. RT CHEST HEMISPLIT INFUSIG NS AT KVO AND DILAUDID COFFEE BLENDER 1.5MG CONT. FAMILY AT BEDSIDE, ASKING WHY HER COFFEE BLENDER IS INFUSING AT 1.5, INFORMED HER THAT MARY Alvarez APN WITH DR. SANDHU CHANGED THE DOSE THIS AM. CALL LIGHT IN REACH, BEDSIDE RAILS X2, WILL CONTINUE PLAN OF CARE.
--- NOTE | 2018-05-25 11:05 | NUR ---
PT RESTING COMFORTABLY, NO DISTRESS NOTED.
--- NOTE | 2018-05-25 14:56 | NUR ---
CALLED [facility] AND LEFT MESSAGE TO HAVE HOSPICE NURSE TO GIVE ME A CALL BACK.
--- NOTE | 2018-05-25 15:41 | NUR ---
DILAUDID BOAT CARPENTER RATE CHANGED TO 2.8MG/HR PER KESHA NICHOLSON.
--- NOTE | 2018-05-25 16:22 | NUR ---
SPOKE WITH MAEGAN FROM DR. SANDHU'S OFFICE AND PROVIDED AN UPDATE ON PT. PT RESTING COMFORTABLY IN BED NOW, FAMILY AT BEDSIDE.
--- NOTE | 2018-05-25 17:07 | NUR ---
ATIVAN AND ATROPINE DROPS GIVEN AT THIS TIME. PT RESTING COMFORTABLY, NAD NOTED.
--- NOTE | 2018-05-25 20:10 | NUR ---
PT RESTING IN BED. PT UNRESPONSIVE AND ON HOSPICE. NO SIGNS OF DISTRESS. WILL CONTINUE TO MONITOR PT.
[2018-05-25 22:36] VITALS: BP 111/54
--- NOTE | 2018-05-26 04:26 | NUR ---
I have reviewed this patient and I concur with the Shift Assessment completed by the Licensed Practical Nurse today this shift.
--- NOTE | 2018-05-26 07:50 | NUR ---
DR. SANDHU HERE TO SEE PT AND UPON ENTERING THE ROOM WAS NOTED RESPIRATIONS ABSENT. DR. SANDHU WANT [facility] CALLED AND THEY WERE CONTACTED INFORMING OF PTS .
--- NOTE | 2018-05-26 08:15 | NUR ---
HOSPICE NURSE HERE AND PRONOUNCED PT AT 0831 AND CONTACTED PTS FAMILY.
--- NOTE | 2018-05-26 11:24 | NUR ---
[facility] HERE AND TOOK PT VIA [facility]. FAMILY HAS BEEN TO SEE HER.
--- NOTE | 2018-05-26 12:09 | MORECARE ---
CASE MANAGEMENT DISCHARGE SUMMARY PATIENT: PAULINO CORREIA UNIT: [id number] ADM DATE: 05/12/18 AGE: 63 : 55 SEX: F ROOM/BED: D.2110 AUTHOR: DARNELL KRAUS PHYSICIAN: REFERRING PHYSICIAN: KUMAR SANDHU MD DATE OF SERVICE: 05/26/18 Discharge Plan Patient Name: PAULINO CORREIA Facility: [facility]:[place] : 1955 Planned Disposition: Anticipated Discharge Date: 05/26/18 Discharge Date: 05/26/2018 Expected LOS: 14 Initial Reviewer: [email or web address] Initial Review Date: 05/13/2018 Generated: 05/26/18 1:09 pm Comments DCP- Discharge Planning Updated by [email or web address]: Je Ferrer on 05/13/18 6:[address] Patient Name: PAULINO CORREIA Admission Status: Elective Accout number: [id number] Admission Date: 05-12-2018 : 1955 Admission Diagnosis: Attending: KUMAR SANDHU Current LOS: 1 Anticipated DC Date: Planned Disposition: Primary Insurance: [facility] PLANNED EXTERNAL PROVIDER: [facility] Discharge Planning Comments: CHART REVIEWED. PT ADMITTED TO [facility]PATIENT [facility]OSPICE LAST EVENING WITH [facility]. ALL CASE MANAGEMENT SERVICES PROVIDED BY [facility]. Drink Mixer: Je Ferrer Last DP export: 05/13/18 6:50 a Patient Name: PAULINO CORREIA Page [id number] at 1209 All edits/amendments must be made on the electronic document DICTATION DATE: 05/26/18 1208 TACTICAL/MOBILE WATCH OFFICER: CARL 05/26/18 1208 RPT#: [id number] DC DATE:05/26/18 STATUS: DIS IN [place] [id number] [place] [address] END OF REPORT
--- NOTE | 2018-05-26 17:00 | MORECARE ---
CASE MANAGEMENT DISCHARGE SUMMARY PATIENT: PAULINO CORREIA UNIT: [id number] ADM DATE: 05/12/18 AGE: 63 : 55 SEX: F ROOM/BED: D.2110 AUTHOR: DARNELL KRAUS PHYSICIAN: REFERRING PHYSICIAN: KUMAR SANDHU MD DATE OF SERVICE: 05/26/18 Discharge Plan Patient Name: PAULINO CORREIA Facility: [facility]:[place] : 1955 Planned Disposition: Anticipated Discharge Date: 05/26/18 Discharge Date: 05/26/2018 Expected LOS: 14 Initial Reviewer: [email or web address] Initial Review Date: 05/13/2018 Generated: 05/26/18 6:00 pm Comments DCP- Discharge Planning Updated by [email or web address]: Je Ferrer on 05/13/18 6:[address] Patient Name: PAULINO CORREIA Admission Status: Elective Accout number: [id number] Admission Date: 05-12-2018 : 1955 Admission Diagnosis: Attending: KUMAR SANDHU Current LOS: 1 Anticipated DC Date: Planned Disposition: Primary Insurance: [facility] PLANNED EXTERNAL PROVIDER: [facility] Discharge Planning Comments: CHART REVIEWED. PT ADMITTED TO [facility]PATIENT HOSPICE LAST EVENING WITH [facility]. ALL CASE MANAGEMENT SERVICES PROVIDED BY [facility]. Test Man: Je Ferrer Last DP export: 05/26/18 11:09 a Patient Name: PAULINO CORREIA Page [id number] at 1700 All edits/amendments must be made on the electronic document DICTATION DATE: 05/26/18 1700 UNDERGRADUATE ADVISOR: CARL 05/26/18 1700 RPT#: [id number] DC DATE:05/26/18 STATUS: DIS IN [facility] [address] [place] [address] END OF REPORT
== END 2018-05-26 11:26 | DRG 951 ==
LOC: D.M2 20:14
PROVIDERS: ADMIT Legal Medicine; ATTEND Legal Medicine
DX: Z51.5 Encounter for palliative care (principal)